=== PATIENT | female | born 1950 | race Caucasian/White ===

== ENCOUNTER 2017-04-13 13:25 | Inpatient (IN) | payer MEDICARE ==
[~2017-04-13] VITALS: Ht 167.6 cm; Wt 51.3 kg
[~2017-04-13 13:25] MED LIST: BUPR100T13 PO; LAMO200T39 PO
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
--- NOTE | 2017-04-13 13:30 | NUR ---
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 BLOOD SAMPLE COLLECTED SENT TO LAB
--- NOTE | 2017-04-13 13:48 | NUR ---
(WIRE STITCHER OPERATOR FROM [facility]) CALLED, TRANSFERRED CALL TO [facility] (TREVER)
[2017-04-13] MEDS ORDERED: METOPROLOL TARTRATE INJ 5 MG/5 ML AMPUL ONE (13:52)
[2017-04-13 13:58] LABS: BASOPHILS # (AUTO) 0.1 /CMM (0.0-0.2); EOSINOPHILS # (AUTO) 0.4 /CMM (0.0-0.7); EOSINOPHILS % (AUTO) 2.9 % (0.0-6.0); HEMATOCRIT 43 % (33-45); HEMOGLOBIN 14.4 g/dL (11.5-14.8); LYMPHOCYTES # (AUTO) 4.7 /CMM (0.8-4.8); LYMPHOCYTES % (AUTO) 37.3 % (20.0-44.0); MEAN CORPUSCULAR HEMOGLOBIN 32 PG (26.0-33.0); MEAN CORPUSCULAR HGB CONC 34 g/dl (31.0-36.0); MEAN CORPUSCULAR VOLUME 95 fL (82-100); MONOCYTES # (AUTO) 1.7 /CMM (0.1-1.30); MONOCYTES % (AUTO) 13.5 % (2.0-12.0); NEUTROPHILS # (AUTO) 5.7 /CMM (1.8-8.9); NEUTROPHILS % (AUTO) 45.3 % (43.0-81.0); PLATELET COUNT (AUTO) 397 /CMM (150-450); RED BLOOD CELL COUNT(AUTO) 4.53 MIL/uL (4.0-5.2); WHITE BLOOD COUNT (AUTO) 12.6 K/uL (4.3-11.0)
[2017-04-13] MEDS ORDERED: METOPROLOL TARTRATE INJ 5 MG/5 ML AMPUL IV ONE (14:00)
[2017-04-13 14:13] LABS: INR 1.24 (0.87-1.13)
[2017-04-13 14:17] LABS: TROPONIN I 0.053 ng/mL (0.00-0.056)
--- NOTE | 2017-04-13 14:19 | NUR ---
CALLED NURSING SUP. FOR TELE BED
[2017-04-13 14:22] LABS: ALBUMIN 4.1 g/dL (3.4-5.0); BILIRUBIN,DIRECT 0.1 mg/dL (0.0-0.2); CALCIUM, SERUM 9.2 mg/dL (8.5-10.1); CREATININE 1.4 mg/dL (0.6-1.3); TOTAL PROTEIN, SERUM 7.5 g/dL (6.4-8.2)
[2017-04-13 14:27] LABS: POTASSIUM 2.4 mmol/L (3.5-5.1)
[2017-04-13] MEDS ORDERED: DIGOXIN INJ 0.5 MG/2 ML AMPUL ONE (14:29)
[2017-04-13] MEDS ORDERED: DIGOXIN INJ 0.5 MG/2 ML AMPUL IV ONE (14:30)
[2017-04-13] MEDS: POTASSIUM CL. PREMIX PERIPHER. 50 ML IV SCH ×4 (14:45→18:10)
[2017-04-13] MEDS ORDERED: POTASSIUM CHLORIDE 20 MEQ TAB.PRT.SR PO ONE ×2 (14:49→15:00)
[2017-04-13] MEDS ORDERED: IV SET PRIMARY PUMP SET 1 EA INFUS.SET MC ONE ×3 (14:50→16:58)
[2017-04-13] MEDS ORDERED: POTASSIUM CL. PREMIX PERIPHER. 50 ML ONE (14:50)
[2017-04-13] MEDS ORDERED: FLUT1DIS3 INH (15:05)
[2017-04-13] MEDS ORDERED: ALBU18HF2 INH (15:05)
[2017-04-13] MEDS ORDERED: CARV6.252 PO (15:05)
[2017-04-13] MEDS ORDERED: RIVA10TA PO (15:05)
[2017-04-13] MEDS ORDERED: TORS20TA3 PO ×2 (15:05)
[2017-04-13] MEDS ORDERED: LISI2.5T2 PO (15:05)
[2017-04-13] MEDS ORDERED: ESCI10TA PO (15:05)
[2017-04-13 15:06] LABS: MAGNESIUM 1.5 mg/dL (1.8-2.4); PHOSPHORUS 1.9 mg/dL (2.5-4.9)
--- NOTE | 2017-04-13 15:35 | NUR ---
ROSITA AT BS.
[2017-04-13] MEDS ORDERED: POTASSIUM CL. PREMIX PERIPHER. 150 ML ONE (15:46)
[2017-04-13] MEDS ORDERED: Magnesium 1GM/D5W 100ML PREMIX 200 ML IV ONE (15:46)
--- NOTE | 2017-04-13 15:49 | NUR ---
REPORT GIVEN TO NAS COMBS FOR ROOM 103
--- NOTE | 2017-04-13 15:50 | NUR ---
TELE1/RN REPORT FROM ER RECEIVED REPORT FROM ER NURSE MONICA FOR PT TO BE ADMITTED FOR A-FIB, UNDER THE CARE OF DR. HERNANDEZ. AWAITING FOR PT'S ARRIVAL.
[2017-04-13 15:53] LABS: THYROID STIMULATING HORMONE 4.264 uIU/mL (0.358-3.74)
[2017-04-13] MEDS: Magnesium 1GM/D5W 100ML PREMIX 100 ML IV SCH ×2 (16:00→19:30)
[2017-04-13 16:30] VITALS: BP 115/55
--- NOTE | 2017-04-13 16:30 | NUR ---
TELE1/MANAGER MILITARY TO TELE1 PT ARRIVED VIA GURNEY FROM ER. A/O X 4, DENIES PAIN, ON 2L O2 VIA N/C LUNG SOUNDS CLEAR, SATURATING @ 100%. ON TELE WITH SINUS RHYTHM, HR 65. PT ARRIVED WITH ON GOING IV INFUSION OF KCL 10MEQ, IV SITE PATENT WITH NO S/S OF INFECTION. PT IS PLEASANT. ADMITTING PROTOCOLS BEING PROCESSED. AWAITING FOR ADMITTING ORDERS. CL WITHIN REACHED AND SAFETY MAINTAINED. ON GOING MONITORING.
[2017-04-13] MEDS ORDERED: IV NS 0.9% 500 ML IV ONE (16:58)
[2017-04-13 17:00] VITALS: BP 115/55
[2017-04-13] MEDS ORDERED: HYDROCODONE/APAP 10/325MG 1 EA TABLET PO PRN (17:30)
[2017-04-13] MEDS ORDERED: ZOLPIDEM TARTRATE 5 MG TABLET PO PRN (17:30)
[2017-04-13] MEDS ORDERED: MAG HYDROX/AL HYDROX/SIMETH 30 ML UDC PO PRN (17:30)
[2017-04-13] MEDS ORDERED: HYDROCODONE/APAP 5/325MG 1 EACH TABLET PO PRN (17:30)
[2017-04-13] MEDS ORDERED: Z GUARD REMEDY 2 OZ OINT TP PRN (17:30)
[2017-04-13] MEDS ORDERED: ONDANSETRON HCL/PF 4 MG/2 ML VIAL IVP PRN (17:30)
[2017-04-13] MEDS ORDERED: MORPHINE SULFATE INJ 2 MG/ML DISP.SYRIN IV PRN (17:30)
[2017-04-13] MEDS ORDERED: MAGNESIUM HYDROXIDE 30 ML UDC PO PRN (17:30)
[2017-04-13] MEDS ORDERED: ACETAMINOPHEN 325 MG TABLET PO PRN (17:30)
[2017-04-13] MEDS: CARVEDILOL 6.25 MG TABLET PO SCH (17:36)
[2017-04-13] MEDS ORDERED: SECONDARY IV SET 1 EA INFUS.SET MC ONE (18:09)
[2017-04-13] MEDS: FLUTICASONE/SALMETEROL DISKUS IH SCH (18:13)
--- NOTE | 2017-04-13 19:17 | NUR ---
TELE1/RN AM SHIFT END NOTES NO ACUTE CHANGE OF CONDITION SINCE PT WAS ADMITTED LATE THIS AFTERNOON. NEEDS MET. PT ENDORSED TO PM NURSE TO CONTINUE CARE. CL WITHIN REACHED AND SAFETY MAINTAINED.
[2017-04-13] MEDS ORDERED: ALBUTEROL FS 2.5 MG/3 ML VIAL.NEB NEB PRN (19:30)
--- NOTE | 2017-04-13 19:36 | NUR ---
TELEPHONE COLLECTOR NOTE RECEIVED PT IN BED A/O X 4, NO SOB, NO DISTRESS OR DISCOMFORT NOTED. DENIES PAIN. ON TELE A FIB HR 70'S. MAG 1 G INFUSING AT 100 ML/HR, NO S/S OF INFILTRATION NOTED LAC #20G. SIDE RAILS UP X 2 AND CALL LIGHT WITHIN REACH. VSS. CONTINUE TO MONITOR HER.
[2017-04-13 20:00] VITALS: BP 113/60
[2017-04-13 20:01] VITALS: BP 113/60
--- NOTE | 2017-04-13 22:49 | NUR ---
DIRECTOR FOUNDATION NOTE PT IN BED ASLEEP, NO DISTRESS OR DISCOMFORT NOTED. RESP EVEN AND NON LABORED. CONTINUE TO MONITOR HER.
[2017-04-14] VITALS: BP_SYST 114; BP_DIAS 62; BP_DIAS 67
[2017-04-14 04:00] VITALS: BP 116/69
--- NOTE | 2017-04-14 06:37 | NUR ---
HORSE WRANGLER NOTE PT IN BED ASLEEP, AROUSABLE, NO DISTRESS OR DISCOMFORT NOTED. DENIES PAIN. ON TELE SR WITH PVC'S HR 65. SL LAC #20 G INTACT AND PATENT. SIDE RAILS UP X 2 AND CALL LIGHT WITHIN REACH. WILL ENDORSE TO DAY SHIFT NURSE FOR CONTINUE TO CARE.
[2017-04-14 06:42] LABS: BASOPHILS # (AUTO) 0.1 /CMM (0.0-0.2); BASOPHILS % (AUTO) 0.9 % (0.0-2.0); EOSINOPHILS # (AUTO) 0.6 /CMM (0.0-0.7); EOSINOPHILS % (AUTO) 5.7 % (0.0-6.0); HEMATOCRIT 41 % (33-45); LYMPHOCYTES # (AUTO) 3.7 /CMM (0.8-4.8); LYMPHOCYTES % (AUTO) 35.2 % (20.0-44.0); MEAN CORPUSCULAR HEMOGLOBIN 33 PG (26.0-33.0); MEAN CORPUSCULAR HGB CONC 34 g/dl (31.0-36.0); MEAN CORPUSCULAR VOLUME 96 fL (82-100); MONOCYTES # (AUTO) 1.3 /CMM (0.1-1.30); MONOCYTES % (AUTO) 12.4 % (2.0-12.0); NEUTROPHILS # (AUTO) 4.8 /CMM (1.8-8.9); NEUTROPHILS % (AUTO) 45.8 % (43.0-81.0); PLATELET COUNT (AUTO) 347 /CMM (150-450); RDW COEFFICIENT OF VARIATION 13.2 (11.5-15.0); RED BLOOD CELL COUNT(AUTO) 4.28 MIL/uL (4.0-5.2); WHITE BLOOD COUNT (AUTO) 10.5 K/uL (4.3-11.0)
--- NOTE | 2017-04-14 07:00 | NUR ---
RN INITIAL NOTE RECEIVED PT FROM CLAUDIO COMBS PM SHIFT. PT A/O X4 PT ON RA. IV LAC #20G PATENT AND INTACT. ALL SAFETY MEASURES IN PLACE. WILL CONTINUE TO MONITOR.
[2017-04-14 07:02] LABS: TROPONIN I 0.074 ng/mL (0.00-0.056)
[2017-04-14 07:05] LABS: THYROID STIMULATING HORMONE 2.313 uIU/mL (0.358-3.74)
[2017-04-14 07:09] LABS: ALBUMIN 3.7 g/dL (3.4-5.0); BILIRUBIN,TOTAL 0.8 mg/dL (0.2-1.0); CALCIUM, SERUM 9.2 mg/dL (8.5-10.1); CREATININE 1.1 mg/dL (0.6-1.3); MAGNESIUM 2.8 mg/dL (1.8-2.4); PHOSPHORUS 3.5 mg/dL (2.5-4.9); POTASSIUM 3.1 mmol/L (3.5-5.1); TOTAL PROTEIN, SERUM 6.7 g/dL (6.4-8.2)
[2017-04-14] MEDS ORDERED: PANTOPRAZOLE 40 MG TABLET.DR PO SCH (07:30)
[2017-04-14 08:00] VITALS: BP 139/55
[2017-04-14 08:40] VITALS: BP 124/79
[2017-04-14] MEDS: CARVEDILOL 6.25 MG TABLET PO SCH (08:40)
[2017-04-14] MEDS: FLUTICASONE/SALMETEROL DISKUS IH SCH (08:45)
[2017-04-14] MEDS ORDERED: ESCITALOPRAM OXALATE (10 MG) 10 MG TABLET PO SCH (09:00)
[2017-04-14] MEDS ORDERED: RIVAROXABAN 10 MG TABLET PO SCH (09:00)
[2017-04-14] MEDS ORDERED: DRONEDARONE HYDROCHLORIDE 400 MG TABLET PO SCH (09:30)
[2017-04-14] MEDS: POTASSIUM CHLORIDE 20 MEQ TAB.PRT.SR PO SCH ×3 (10:06→12:32)
--- NOTE | 2017-04-14 14:35 | NUR ---
SUPERVISOR SHRIMP POND NOTE PT DC HOME. PT LEFT VIA TAXI. ALL ORDERS CARRIED OUT ALL QUESTIONS ANSWERED. ALL DC INSTRUCTIONS GIVEN TO PT. ID BAND AND IV REMOVED. BELONGING LIST SIGNED. PT CLEAN WARM AND DRY.
== END 2017-04-14 14:53 | disposition home or self-care (01) | DRG 291 ==
LOC: ER 13:27 → TELE1 16:43 → MEDSG1 04-14 13:25
DX: I13.0 Hypertensive heart and chronic kidney disease with heart failure and stage 1 through stage 4 chronic kidney disease, or unspecified chronic kidney disease (principal); I50.33 Acute on chronic diastolic (congestive) heart failure; D68.59 Other primary thrombophilia; I50.22 Chronic systolic (congestive) heart failure; I48.2 Chronic atrial fibrillation; E83.42 Hypomagnesemia; E87.6 Hypokalemia; E83.39 Other disorders of phosphorus metabolism; I42.9 Cardiomyopathy, unspecified; Z79.51 Long term (current) use of inhaled steroids; Z85.3 Personal history of malignant neoplasm of breast; Z85.528 Personal history of other malignant neoplasm of kidney; Z90.5 Acquired absence of kidney; Z90.10 Acquired absence of unspecified breast and nipple; Z98.82 Breast implant status; J44.9 Chronic obstructive pulmonary disease, unspecified; R55 Syncope and collapse; Z72.0 Tobacco use; V49.9XXA Car occupant (driver) (passenger) injured in unspecified traffic accident, initial encounter; Y93.9 Activity, unspecified; Y92.9 Unspecified place or not applicable; N18.9 Chronic kidney disease, unspecified; N28.9 Disorder of kidney and ureter, unspecified; Z79.899 Other long term (current) drug therapy; E86.0 Dehydration
CPT/HCPCS: 36415; 71010-TC; 80048-TC; 80053-TC; 80061-TC; 80076-TC; 82306; 83735-TC; 83880; 84100-TC; 84439-TC; 84443-TC; 84484-TC; 85025-TC; 85730-TC; 87081-TC; 93307-TC; 97001-TC; A4606; J1160; J3475; J3480; J3490; J7040; Z7610

== ENCOUNTER 2018-12-02 22:21 | Emergency (ER) | payer MEDICARE ==
[~2018-12-02] VITALS: Ht 167.6 cm; Wt 54.4 kg
[~2018-12-02 22:21] MED LIST changes: +ALBU18HF2 INH; -BUPR100T13 PO; +CARV6.252 PO; +ESCI10TA PO; +FLUT1DIS3 INH; -LAMO200T39 PO; +LISI2.5T2 PO; +RIVA10TA PO; +TORS20TA3 PO
[2018-12-03 00:15] VITALS: BP 120/89
[2018-12-03] MEDS ORDERED: TDAP [DIPH/PERTUSSIS/TET] 0.5 ML VIAL IM ONE ×2 (00:15→00:30)
[2018-12-03] MEDS ORDERED: AMOX/CLAVULANATE 875 MG TABLET ONE (00:53)
[2018-12-03] MEDS ORDERED: AMOX/CLAVULANATE 875 MG TABLET PO ONE (01:00)
== END 2018-12-03 01:01 | disposition home or self-care (01) ==
LOC: ER 22:32
DX: S60.032A Contusion of left middle finger without damage to nail, initial encounter (principal); F17.210 Nicotine dependence, cigarettes, uncomplicated; I50.9 Heart failure, unspecified; Z85.3 Personal history of malignant neoplasm of breast; Z85.528 Personal history of other malignant neoplasm of kidney; Z90.5 Acquired absence of kidney; Z98.890 Other specified postprocedural states; Z60.2 Problems related to living alone; W54.0XXA Bitten by dog, initial encounter; Y93.89 Activity, other specified; Y92.89 Other specified places as the place of occurrence of the external cause; Y99.8 Other external cause status
CPT/HCPCS: 90471; 90715; 99283; A4606

== ENCOUNTER 2019-08-10 13:17 | Inpatient (IN) | payer MEDICARE ==
[~2019-08-10] VITALS: Ht 167.6 cm; Wt 61.7 kg
--- NOTE | 2019-08-10 13:17 | NUR ---
PT BIB RA 99 FROM HOME,C/O LEFT HIP PAIN S/P TRIP/FALL, DENIES DIZZINESS/LOC, PT IS AAOX3, NOT IN RESPIRATORY, HOOKED TO MONITOR, KEPT RESTED AND COMFORTABLE, WILL CONTINUE TO MONITOR.
--- NOTE | 2019-08-10 13:41 | NUR ---
MORENO VALERO AT BEDSIDE FOR EVAL.
--- NOTE | 2019-08-10 13:43 | NUR ---
BROOMCORN SORTER AT BEDSIDE FOR XRAY.
[2019-08-10] MEDS ORDERED: MORPHINE SULFATE INJ 4 MG/ML DISP.SYRIN ONE (13:44)
[2019-08-10] MEDS ORDERED: POTA20TA83 PO (13:47)
--- NOTE | 2019-08-10 13:58 | NUR ---
[facility]O [facility] LEAD PAGED
[2019-08-10] MEDS ORDERED: MORPHINE SULFATE INJ 2 MG/ML DISP.SYRIN IV ONE (14:00)
[2019-08-10 14:26] LABS: BASOPHILS # (AUTO) 0.1 /CMM (0.0-0.2); EOSINOPHILS % (AUTO) 1.5 % (0.0-6.0); HEMATOCRIT 37 % (33-45); HEMOGLOBIN 12.4 g/dL (11.5-14.8); LYMPHOCYTES % (AUTO) 17.4 % (20.0-44.0); MEAN CORPUSCULAR HGB CONC 33 g/dl (31.0-36.0); MEAN CORPUSCULAR VOLUME 100 fL (82-100); MONOCYTES # (AUTO) 1.4 /CMM (0.1-1.30); NEUTROPHILS % (AUTO) 68.1 % (43.0-81.0); PLATELET COUNT (AUTO) 326 /CMM (150-450); RED BLOOD CELL COUNT(AUTO) 3.74 MIL/uL (4.0-5.2); WHITE BLOOD COUNT (AUTO) 11.8 K/uL (4.3-11.0)
[2019-08-10 14:34] LABS: CALCIUM, SERUM 9.4 mg/dL (8.5-10.1); CREATININE 1.3 mg/dL (0.6-1.3); POTASSIUM 3.3 mmol/L (3.5-5.1)
[2019-08-10] MEDS ORDERED: ONDANSETRON HCL/PF 4 MG/2 ML VIAL ONE (14:35)
[2019-08-10] MEDS ORDERED: HYDROMORPHONE 1 MG/1 ML DISP.SYRIN ONE (14:36)
--- NOTE | 2019-08-10 14:48 | NUR ---
[facility] PAGED
[2019-08-10] MEDS ORDERED: IV NS 0.9% 1,000 ML BAG IV ONE (15:00)
[2019-08-10] MEDS ORDERED: ONDANSETRON HCL/PF 4 MG/2 ML VIAL IV ONE (15:00)
[2019-08-10] MEDS ORDERED: HYDROMORPHONE INJ 0.5 MG/0.5 ML SYRINGE IV ONE (15:00)
--- NOTE | 2019-08-10 15:00 | NUR ---
MARKIE RODRIGUEZ AT BEDSIDE FOR EVAL.
--- NOTE | 2019-08-10 15:08 | NUR ---
PAMELLA JEROME AT BEDSIDE FOR EVAL.
--- NOTE | 2019-08-10 15:41 | NUR ---
RECIEVED BED 326-2
--- NOTE | 2019-08-10 15:45 | NUR ---
REPORT GIVEN TO GARRET ALCARAZ FOR KORI.
[2019-08-10 16:42] VITALS: BP 155/85
--- NOTE | 2019-08-10 17:00 | NUR ---
ms rn received a new admission from er, female 68 year old came in w/ dx of left hip fracture, s/p fall at home. alert,oriented x4, still in pain,all needs attended.
--- NOTE | 2019-08-10 17:00 | NUR ---
ms junaid tran for order,all needs attended.
[2019-08-10] MEDS ORDERED: MAGNESIUM HYDROXIDE 30 ML UDC PO PRN (17:30)
[2019-08-10] MEDS ORDERED: MORPHINE SULFATE INJ 2 MG/ML DISP.SYRIN IM PRN (17:30)
[2019-08-10] MEDS ORDERED: ONDANSETRON HCL/PF 4 MG/2 ML VIAL IVP PRN (17:30)
[2019-08-10] MEDS ORDERED: HYDROMORPHONE INJ 0.5 MG/0.5 ML SYRINGE IV PRN (17:30)
[2019-08-10] MEDS ORDERED: ACETAMINOPHEN 325 MG TABLET PO PRN (17:30)
[2019-08-10] MEDS ORDERED: Z GUARD REMEDY 2 OZ OINT TP PRN (17:30)
[2019-08-10] MEDS ORDERED: HYDROMORPHONE 1 MG/1 ML DISP.SYRIN IV PRN (17:30)
[2019-08-10] MEDS ORDERED: MAG HYDROX/AL HYDROX/SIMETH 30 ML UDC PO PRN (17:30)
--- NOTE | 2019-08-10 18:00 | NUR ---
ms junaid dilaudid 0.5mg iv given for pain.
--- NOTE | 2019-08-10 19:11 | NUR ---
ms rn on bed,no distress noted,all needs attended.
[2019-08-10] MEDS ORDERED: ALBUTEROL FS 2.5 MG/3 ML VIAL.NEB NEB PRN (19:30)
[2019-08-10 20:00] VITALS: BP 167/108
[2019-08-10] MEDS: HYDROCODONE/APAP 5/325MG 1 EACH TABLET PO PRN (20:24)
[2019-08-10] MEDS ORDERED: CARVEDILOL 6.25 MG TABLET PO SCH (21:00)
--- NOTE | 2019-08-10 21:14 | NUR ---
RN NOTES CALLED AND SPOKE TO DR. MACY CHARLES, INFORMED PATIENT'S REQUEST TO HAVE REAL CATH INSERTION D/T DIFFICULTY MOVING USING BEDPAN, PAIN IS IN PAIN MOSTLY ON HER LEFT HIP AND LEFT SIDE OF HER BODY, PATIENT'S BP IS 167/108, ALREADY GIVEN NORCO 5-325MG AT 2023. WILL KEEP ON TOP OF PAIN MANAGEMENT PER DR. CHARLES. WILL CONTINUE TO MONITOR.
[2019-08-10 21:24] LABS: APPEARANCE,URINE Clear (CLEAR); BILIRUBIN,URINE Negative (NEGATIVE); BLOOD, URINE Trace-lysed Ery/uL (NEGATIVE); COLOR,URINE Yellow (YELLOW); KETONES,URINE Negative (NEGATIVE); LEUKOCYTE ESTERASE ,URINE Negative (NEGATIVE); NITRITE, URINE Negative (NEGATIVE); PROTEIN,URINE Negative (NEGATIVE); UGLUCOSE Negative (NEGATIVE); UROBILINOGEN,URINE 0.2 EU/dL (0.2)
[2019-08-10 21:34] LABS: BACTERIA,URINE Moderate /HPF (None Seen); SQUAMOUS EPITHELIAL CELL,UR Few /HPF (None Seen)
[2019-08-10 21:35] LABS: RBC,URINE 0-2 /HPF (0-2); WBC,URINE 0-2 /HPF (0-3)
[2019-08-10] MEDS: HYDROMORPHONE 1 MG/1 ML DISP.SYRIN IV PRN (22:17)
[2019-08-11] MEDS: HYDROMORPHONE 1 MG/1 ML DISP.SYRIN IV PRN ×7 (00:56→16:24)
[2019-08-11] MEDS ORDERED: LORAZEPAM 1 MG TABLET PO ONE (03:30)
[2019-08-11] MEDS ORDERED: LORA1TAB PO (05:44)
[2019-08-11 06:23] LABS: BASOPHILS # (AUTO) 0.1 /CMM (0.0-0.2); BASOPHILS % (AUTO) 0.9 % (0.0-2.0); EOSINOPHILS % (AUTO) 0.3 % (0.0-6.0); HEMATOCRIT 34 % (33-45); HEMOGLOBIN 11.6 g/dL (11.5-14.8); LYMPHOCYTES # (AUTO) 2.1 /CMM (0.8-4.8); LYMPHOCYTES % (AUTO) 19.2 % (20.0-44.0); MEAN CORPUSCULAR HGB CONC 34 g/dl (31.0-36.0); MEAN CORPUSCULAR VOLUME 98 fL (82-100); MONOCYTES # (AUTO) 2.2 /CMM (0.1-1.30); MONOCYTES % (AUTO) 19.8 % (2.0-12.0); NEUTROPHILS # (AUTO) 6.6 /CMM (1.8-8.9); NEUTROPHILS % (AUTO) 59.8 % (43.0-81.0); PLATELET COUNT (AUTO) 274 /CMM (150-450); RED BLOOD CELL COUNT(AUTO) 3.48 MIL/uL (4.0-5.2)
[2019-08-11 06:55] LABS: THYROID STIMULATING HORMONE 3.794 uIU/mL (0.358-3.74)
--- NOTE | 2019-08-11 06:57 | NUR ---
RN NOTES ALL NEEDS ATTENDED AND MET, ABLE TO REST AND SLEPT AT INTERVALS, SAFETY MEASURES IN PLACE, CALL LIGHT WITHIN EASY REACH, WILL ENDORSE TO AM NURSE FOR CONTINUITY OF CARE.
[2019-08-11 07:05] LABS: CALCIUM, SERUM 9.1 mg/dL (8.5-10.1); MAGNESIUM 1.6 mg/dL (1.8-2.4); PHOSPHORUS 2.4 mg/dL (2.5-4.9); POTASSIUM 2.9 mmol/L (3.5-5.1)
--- NOTE | 2019-08-11 07:20 | NUR ---
RN OPENING NOTES RECEIVED PATIENT IN BED RESTING. A/OX4, ABLE TO MAKE NEEDS KNOWN. NOT IN ANY FORM OF DISTRESS. NO SOB. PAIN ON LEFT HIP, S/P FX. WILL ADMINISTER PAIN MEDS ORDERED. IV ACCESS INTACT AND PATENT. KEP TPATIENT SAFE AND COMFORTABLE. BED IN LOW/LOCKED [facility], SIDERAILS UPX2, CALL LIGHT IN REACH. WILL CONT TO MONITOR ACCRDNGLY
[2019-08-11 08:26] LABS: LYMPHOCYTES % (MANUAL) 13 % (16-48); MONOCYTES % (MANUAL) 25 % (0-11.0); NEUTROPHILS % (MANUAL) 62 (42-76)
--- NOTE | 2019-08-11 08:38 | NUR ---
RN NOTES DR FRY,ORTHO, AT BEDSIDE TALKING TO PATIENT. WILL HAVE SURGERY TOMRRW. LEFT HIP HEMIARTHROPLASTY. NPO AFTER MIDNIGHT
[2019-08-11] MEDS ORDERED: MAGNESIUM OXIDE 400 MG TABLET PO ONE (09:00)
[2019-08-11 09:57] VITALS: BP 140/97
[2019-08-11] MEDS: POTASSIUM CHLORIDE 20 MEQ TAB.PRT.SR PO SCH ×2 (10:15→16:24)
[2019-08-11] MEDS: LISINOPRIL (5MG) 5 MG TABLET PO SCH (10:18)
[2019-08-11] MEDS: CARVEDILOL 3.125 MG TABLET PO SCH ×2 (10:20→22:02)
[2019-08-11] MEDS: FLUTICASONE/VILANTEROL 1 EACH BLST.W.DEV IH SCH (10:26)
[2019-08-11] MEDS ORDERED: K PHOS NEUTRAL 250 MG TABLET PO ONE (11:00)
[2019-08-11] MEDS: TORSEMIDE 20 MG TABLET PO SCH (11:52)
[2019-08-11 16:18] VITALS: BP 124/86
[2019-08-11] MEDS: METHOCARBAMOL (500MG) 500 MG TABLET PO SCH (16:25)
--- NOTE | 2019-08-11 17:30 | NUR ---
RN NOTES TRIED CALLING [facility] MEDICAL RECORDS BUT NO ANSWER. OFFICE HOURS MON-FRI 8AM-5PM.
[2019-08-11] MEDS: oxyCODONE/APAP (5/325 MG) 1 UDTAB TABLET PO PRN ×2 (18:41→23:32)
--- NOTE | 2019-08-11 19:30 | NUR ---
RN CLOSING NOTES PATIENT IN STABLE CONDITION. ALL NEEDS ATTENDED AND PROVIDED. ALL DUE MEDICATIONS ADMINISTERED ORDERED. TURNED AND REPOSITION PATIENT EVERY 2 HRS NEEDED. KEPT PATIENT SAFE AND COMFORTABLE. BED IN LOW/LOCKED POSITION, SIDERAILS UPX2, CALL LIGHT IN REACH. ENDORSED TO NIGHT RN FOR KORI.
--- NOTE | 2019-08-11 19:40 | NUR ---
RN NOTES RECEIVED PATIENT IN BED RESTING COMFORTABLY, NO SIGNS OF DISTRESS NOTED, NO SOB. CONSTANT PAIN ON LEFT HIP, S/P FX. WILL ADMINISTER PAIN MEDS ORDERED. IV ACCESS INTACT AND PATENT. REAL CATHETER INTACT AND PATENT DRAINING TO A CLEAR YELLOW OUTPUT, NO SIGNS OF ANXIETY NOTED, SAFETY MEASURES IN PLACE, CALL LIGHT WITHIN EASY REACH, WILL MONITOR ACCORDINGLY.
[2019-08-11 20:00] VITALS: BP 120/57
[2019-08-11 20:07] VITALS: BP 120/57
--- NOTE | 2019-08-12 | NUR ---
RN NOTES ON NPO REMINDED PATIENT, PROCEDURE CONSENT SIGNED AND IN THE PATIENT'S CHART. WILL MONITOR.
[2019-08-12] MEDS: METHOCARBAMOL (500MG) 500 MG TABLET PO SCH ×3 (01:01→16:21)
--- NOTE | 2019-08-12 06:40 | NUR ---
RN NOTES MADE ROUNDS, PATIENT WAS ABLE TO REST, STATED THAT SHE WASN'T ABLE TO SLEEP THROUGHOUT THE NIGHT, MAINTAINED ON NPO SINCE AFTER MIDNIGHT, PROCEDURE FOR LEFT HIP HEMIARTHROPLASTY, POSSIBLE TOTAL HIP ARTHROPLASTY, CONSENT SIGNED, CHECKLIST INITIATED. KEPT PATIENT CALM, SAFETY MEASURES IN PLACE, CALL LIGHT WITHIN EASY REACH. ALL NEEDS ATTENDED, WILL ENDORSE TO AM NURSE FOR CONTINUITY OF CARE, PROCEDURE IS AT 0900 TODAY 08/12/19.
--- NOTE | 2019-08-12 07:30 | NUR ---
RN OPENING NOTES PATIENT IN BED RESTING. NOT IN ANY FORM OF DISTRESS. NO SOB. COMPLAINTS OF PAIN 10/10 ON LEFT HIP FX, WILL ADMINISTER PAIN MEDS ORDERED. KEPT NPO, FOR SURGERY AT 0900 TODAY. KEPT PATIENT SAFE AND COMFORTABLE. BED IN LOW/LOCKED POSITION, SIDERAILS UPX2,C ALL LIGHT IN REACH. WILL CONTINUE TO MONIOTR ACCORDINGLY
[2019-08-12 07:46] LABS: BASOPHILS # (AUTO) 0.1 /CMM (0.0-0.2); BASOPHILS % (AUTO) 0.8 % (0.0-2.0); EOSINOPHILS % (AUTO) 1.2 % (0.0-6.0); HEMATOCRIT 38 % (33-45); HEMOGLOBIN 12.8 g/dL (11.5-14.8); LYMPHOCYTES # (AUTO) 1.8 /CMM (0.8-4.8); LYMPHOCYTES % (AUTO) 11.4 % (20.0-44.0); MEAN CORPUSCULAR HGB CONC 33 g/dl (31.0-36.0); MEAN CORPUSCULAR VOLUME 99 fL (82-100); MONOCYTES # (AUTO) 2.4 /CMM (0.1-1.30); MONOCYTES % (AUTO) 15.7 % (2.0-12.0); NEUTROPHILS # (AUTO) 10.9 /CMM (1.8-8.9); NEUTROPHILS % (AUTO) 70.9 % (43.0-81.0); PLATELET COUNT (AUTO) 309 /CMM (150-450); RED BLOOD CELL COUNT(AUTO) 3.89 MIL/uL (4.0-5.2); WHITE BLOOD COUNT (AUTO) 15.4 K/uL (4.3-11.0)
[2019-08-12 07:56] LABS: CALCIUM, SERUM 9.1 mg/dL (8.5-10.1); CREATININE 1.2 mg/dL (0.6-1.3); MAGNESIUM 1.8 mg/dL (1.8-2.4); PHOSPHORUS 3.3 mg/dL (2.5-4.9); POTASSIUM 3.4 mmol/L (3.5-5.1)
[2019-08-12] MEDS: HYDROMORPHONE 1 MG/1 ML DISP.SYRIN IV PRN ×4 (07:56→20:09)
[2019-08-12 08:00] VITALS: BP 121/67
[2019-08-12] MEDS ORDERED: ANESTHESIA TRAY IN PYXIS 1 EA TRAY MC ONE (08:25)
[2019-08-12] MEDS ORDERED: BACITRACIN 50000 UNITS/VIAL ONE (08:26)
[2019-08-12] MEDS ORDERED: BUPIVACAINE 0.5 % PF 150 MG/30 ML VIAL ONE (08:26)
--- NOTE | 2019-08-12 08:30 | NUR ---
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 CONSENTS SIGNED.
[2019-08-12] MEDS: POTASSIUM CHLORIDE 20 MEQ TAB.PRT.SR PO SCH ×2 (09:00→16:20)
[2019-08-12] MEDS: CARVEDILOL 3.125 MG TABLET PO SCH ×2 (09:00→21:18)
[2019-08-12] MEDS: FLUTICASONE/VILANTEROL 1 EACH BLST.W.DEV IH SCH (09:00)
[2019-08-12] MEDS ORDERED: MIDAZOLAM HCL 2 MG/2ML VIAL ONE (09:01)
[2019-08-12] MEDS ORDERED: FENTANYL PF 100MCG/2ML AMPUL ONE ×2 (09:01→10:12)
[2019-08-12] MEDS ORDERED: ROCURONIUM BROMIDE 50 MG/5 ML ONE (09:01)
[2019-08-12] MEDS: POTASSIUM CL. PREMIX PERIPHER. 50 ML IV SCH ×2 (09:35→10:35)
[2019-08-12] MEDS ORDERED: LABETALOL HCL IV 100MG VIAL ONE (11:21)
[2019-08-12 11:48] LABS: BASOPHILS # (AUTO) 0.2 /CMM (0.0-0.2); BASOPHILS % (AUTO) 0.8 % (0.0-2.0); EOSINOPHILS % (AUTO) 1.1 % (0.0-6.0); HEMATOCRIT 38 % (33-45); HEMOGLOBIN 12.5 g/dL (11.5-14.8); LYMPHOCYTES % (AUTO) 9.7 % (20.0-44.0); MEAN CORPUSCULAR HGB CONC 33 g/dl (31.0-36.0); MEAN CORPUSCULAR VOLUME 99 fL (82-100); MONOCYTES # (AUTO) 1.6 /CMM (0.1-1.30); MONOCYTES % (AUTO) 7.8 % (2.0-12.0); NEUTROPHILS # (AUTO) 16.8 /CMM (1.8-8.9); NEUTROPHILS % (AUTO) 80.6 % (43.0-81.0); PLATELET COUNT (AUTO) 281 /CMM (150-450); RED BLOOD CELL COUNT(AUTO) 3.83 MIL/uL (4.0-5.2); WHITE BLOOD COUNT (AUTO) 20.8 K/uL (4.3-11.0)
[2019-08-12 11:57] LABS: CALCIUM, SERUM 8.7 mg/dL (8.5-10.1); CREATININE 1.1 mg/dL (0.6-1.3); POTASSIUM 3.5 mmol/L (3.5-5.1)
[2019-08-12 12:16] VITALS: BP 106/56
--- NOTE | 2019-08-12 12:17 | NUR ---
rn notes patient came back from OR. VSS. patient in stable condition. complaints of pain, will admin pain meds as ordered. abductor pillows in place. scd pumps on. orders noted and will carry out
[2019-08-12] MEDS: TORSEMIDE 20 MG TABLET PO SCH (12:26)
[2019-08-12] MEDS: LISINOPRIL (5MG) 5 MG TABLET PO SCH (12:26)
[2019-08-12] MEDS: oxyCODONE/APAP (5/325 MG) 1 UDTAB TABLET PO PRN ×3 (12:46→22:14)
[2019-08-12 15:50] VITALS: BP 126/71
[2019-08-12] MEDS ORDERED: CHOL100044 PO (16:54)
[2019-08-12] MEDS ORDERED: LISI2.5T2 PO (16:54)
[2019-08-12] MEDS ORDERED: ESCI20TA PO (16:54)
[2019-08-12] MEDS ORDERED: HYDR59LO5 TP (16:54)
[2019-08-12] MEDS ORDERED: DICL100G16 TP (16:54)
[2019-08-12] MEDS ORDERED: PANT40TA2 PO (16:54)
[2019-08-12] MEDS ORDERED: FERR325T23 PO (16:54)
[2019-08-12] MEDS ORDERED: LOPE2CAP PO (16:54)
[2019-08-12] MEDS ORDERED: DICLOFENAC TOPICAL 100 GM GEL..GM. TP PRN (17:00)
[2019-08-12] MEDS: IV LR 1000 ML 1,000 ML IV PRN (17:01)
[2019-08-12] MEDS: ANCEF 1 GM/50 ML D5W IV SCH ×2 (17:05)
[2019-08-12] MEDS ORDERED: MENTHOL/CETYLPYRD (CEPACOL) 1 LOZ LOZENGE PO PRN (18:30)
--- NOTE | 2019-08-12 19:10 | NUR ---
CHANGE OF SHIFT REPORT Patient in bed, appears anxious, denies SOB, tolerating RA. Left hip incision dressing C/D/I no drainage. Abduction pillow in place. Instruction to use call light for assistance, verbalized understanding. Fall precaution maintained.
[2019-08-12 20:00] VITALS: BP 102/65
[2019-08-12] MEDS: LORAZEPAM 1 MG TABLET PO PRN (23:08)
[2019-08-13] MEDS: METHOCARBAMOL (500MG) 500 MG TABLET PO SCH ×4 (00:02→23:54)
[2019-08-13] MEDS: ANCEF 1 GM/50 ML D5W IV SCH ×2 (02:03)
[2019-08-13] MEDS: oxyCODONE/APAP (5/325 MG) 1 UDTAB TABLET PO PRN ×6 (02:09→22:28)
[2019-08-13] MEDS: IV LR 1000 ML 1,000 ML IV PRN ×2 (05:40→23:33)
--- NOTE | 2019-08-13 06:24 | NUR ---
END OF SHIFT REPORT Patient in bed, stable oxygen saturation on RA. Left lateral thigh incision dressing C/D/I, no drainage, no bleeding. Abduction pillow in place. Left hip pain controlled with PRN Percocet and IV Dilaudid for BTP. Episode of anxiety, given PRN Ativan, able to calm down. IVF infusing, IV abx as schedule. Hourly rounds, denies nausea, no vomiting. Burgess to gravity bag with good output. Fall precaution maintained.
[2019-08-13 07:20] LABS: BASOPHILS # (AUTO) 0.1 /CMM (0.0-0.2); BASOPHILS % (AUTO) 0.9 % (0.0-2.0); EOSINOPHILS % (AUTO) 0.8 % (0.0-6.0); HEMATOCRIT 29 % (33-45); HEMOGLOBIN 9.8 g/dL (11.5-14.8); LYMPHOCYTES % (AUTO) 13.7 % (20.0-44.0); MEAN CORPUSCULAR HGB CONC 34 g/dl (31.0-36.0); MEAN CORPUSCULAR VOLUME 99 fL (82-100); MONOCYTES # (AUTO) 3.2 /CMM (0.1-1.30); MONOCYTES % (AUTO) 22.5 % (2.0-12.0); NEUTROPHILS # (AUTO) 8.9 /CMM (1.8-8.9); NEUTROPHILS % (AUTO) 62.1 % (43.0-81.0); PLATELET COUNT (AUTO) 281 /CMM (150-450); RED BLOOD CELL COUNT(AUTO) 2.95 MIL/uL (4.0-5.2); WHITE BLOOD COUNT (AUTO) 14.4 K/uL (4.3-11.0)
[2019-08-13 08:00] VITALS: BP 106/71
--- NOTE | 2019-08-13 08:03 | NUR ---
RN MS OPENING NOTES Patient received on room air, no sob noted, a/o x4, and denies pain at this time. Plan for sapp is to be removed post op day one, after her PT. LR @ 75 ml per hour RFA 22. Bed at the lowest setting, call light within reach, side rails up x2.
[2019-08-13 08:28] LABS: CALCIUM, SERUM 8.8 mg/dL (8.5-10.1); CREATININE 1.1 mg/dL (0.6-1.3); MAGNESIUM 1.9 mg/dL (1.8-2.4); PHOSPHORUS 2.6 mg/dL (2.5-4.9); POTASSIUM 4.1 mmol/L (3.5-5.1)
[2019-08-13] MEDS: LISINOPRIL (5MG) 5 MG TABLET PO SCH (09:00)
[2019-08-13] MEDS: FLUTICASONE/VILANTEROL 1 EACH BLST.W.DEV IH SCH (09:00)
[2019-08-13] MEDS: POTASSIUM CHLORIDE 20 MEQ TAB.PRT.SR PO SCH ×2 (09:20→16:50)
[2019-08-13] MEDS: FERROUS SULFATE (325 MG) 325 MG/TAB TABLET PO SCH (09:21)
[2019-08-13] MEDS: ESCITALOPRAM OXALATE (10 MG) 10 MG TABLET PO SCH (09:21)
[2019-08-13] MEDS: CARVEDILOL 3.125 MG TABLET PO SCH ×2 (09:21→20:09)
[2019-08-13] MEDS: CHOLECALCIFEROL 1,000 UNIT TABLET (VIT D3) PO SCH (09:21)
[2019-08-13] MEDS: PANTOPRAZOLE 40 MG TABLET.DR PO SCH (09:23)
[2019-08-13] MEDS: TORSEMIDE 20 MG TABLET PO SCH (09:29)
[2019-08-13] MEDS: HYDROMORPHONE 1 MG/1 ML DISP.SYRIN IV PRN ×2 (09:30→21:10)
[2019-08-13 15:59] LABS: BASOPHILS # (AUTO) 0.1 /CMM (0.0-0.2); EOSINOPHILS % (AUTO) 1.5 % (0.0-6.0); HEMATOCRIT 30 % (33-45); LYMPHOCYTES # (AUTO) 2.1 /CMM (0.8-4.8); LYMPHOCYTES % (AUTO) 14.7 % (20.0-44.0); MEAN CORPUSCULAR HGB CONC 34 g/dl (31.0-36.0); MEAN CORPUSCULAR VOLUME 99 fL (82-100); MONOCYTES % (AUTO) 20.5 % (2.0-12.0); NEUTROPHILS % (AUTO) 62.3 % (43.0-81.0); PLATELET COUNT (AUTO) 302 /CMM (150-450); WHITE BLOOD COUNT (AUTO) 14.5 K/uL (4.3-11.0)
[2019-08-13 16:00] VITALS: BP 108/62
[2019-08-13 16:39] LABS: BAND % (MANUAL) 1 % (0.0-5.0); LYMPHOCYTES % (MANUAL) 19 % (16-48); MONOCYTES % (MANUAL) 17 % (0-11.0); NEUTROPHILS % (MANUAL) 63 (42-76)
[2019-08-13] MEDS: RIVAROXABAN 10 MG TABLET PO SCH (17:01)
--- NOTE | 2019-08-13 18:44 | NUR ---
RN MS CLOSING NOTES Patient remains on room air, no sob noted, patient remains a/o x4. Burgess remains on at this time due to patients request, PT agreed and hospitalist aware. Patient stated that she wants to try and remove it tomorrow due to current weakness. LR @ 75 Ml per hour at RFA #22. Anticipating DC tomorrow. Bed at the lowest setting, call light within reach, side rails up x2. Will give report to NOC RN for KORI bedside.
[2019-08-13 20:00] VITALS: BP 108/74
--- NOTE | 2019-08-13 20:00 | NUR ---
MS/RN OPENING NOTES RECEIVED PATIENT IN BED HOB ELEVATED, RESPIRATIONS EVEN AND UNLABORED, SKIN WARM TO TOUCH, CAN OPENS EYES AND ABLE TO VERBALIZE NEEDS, ALERT,ORIENTED X3, DISCUSSED PLAN OF CARE AND LAST PAIN MEDICATION GIVEN BEFORE START OF SHIFT BY AM RN. ON ROOM AIR. S/P SURGERYY FOR LEFT HIP FX, WITH ABDUCTOR PI;;OW, ON REAL CATHETER AT THIS TIME MD AWARE MD THAT PATIENT CAN ONLY WALK FEW STEPS DURING PT. ALSO TO STILL KEEP REAL AT THIS TIME AND TO BE TRANSFERED WITH [facility] OR SNF PLACEMENT. PROVIDED FLUIDS. WILL MONITOR AND IV FLUIDS TO RUN LR @ 75 ML/HR.
--- NOTE | 2019-08-13 21:30 | NUR ---
ms/rn notes pain reported by patient and requested for break through pain of dilaudud ivp 0.5ml, given to monitor effectiveness.
--- NOTE | 2019-08-13 21:46 | NUR ---
MS/RN NOTES PATIENT STILL IN PAIN REPORTED, UNRELIEVED BY DILAUDID, SCHEDULED MEDICATION PERCOCET TO BE GIVEN PATIENT PAIN SEVERE. POSITIONED HAI.
--- NOTE | 2019-08-14 | NUR ---
MS/RN NOTES PATIENT MEDICATION GIVEN, REQUESTED PATIENT WILL GO BACK TO SLEEP. MONITORING FOR ANY CHANGES, INCISION SITE DRESSING INTACT, TO BE CHANGE BY NORA WILL MONITOR.
[2019-08-14] MEDS: oxyCODONE/APAP (5/325 MG) 1 UDTAB TABLET PO PRN ×2 (06:06→18:05)
--- NOTE | 2019-08-14 06:08 | NUR ---
ms/rn opening notes patient awake, and observed grimacing crying abd requesting for pain medication, percocet given. will monitor.
--- NOTE | 2019-08-14 06:52 | NUR ---
MS/RN NOTES PATIENT IN BED, AWAKE, PAIN MEDICATION GIVEN, ABLE TO VERBALIZE NEEDS, PROVIDED FLUIDS AND FACE TOWEL FOR COMFORT. ALERT, ORIENTED X3, RESPIRATIONS EVEN AND UNLABORED, ON REAL CATHETER, NO BM AND OFFERED MEDICATION FOR STOOL MGMT, PREFER TO HAVE IT LATER AFTER BREAKFAST, WILL CONTINUE TO MONITOR. S/P POST OP DAY 2.
[2019-08-14 06:58] LABS: BASOPHILS # (AUTO) 0.1 /CMM (0.0-0.2); EOSINOPHILS % (AUTO) 2.6 % (0.0-6.0); HEMATOCRIT 28 % (33-45); HEMOGLOBIN 9.6 g/dL (11.5-14.8); LYMPHOCYTES % (AUTO) 13.7 % (20.0-44.0); MEAN CORPUSCULAR HGB CONC 34 g/dl (31.0-36.0); MEAN CORPUSCULAR VOLUME 98 fL (82-100); MONOCYTES # (AUTO) 3.1 /CMM (0.1-1.30); MONOCYTES % (AUTO) 21.1 % (2.0-12.0); NEUTROPHILS # (AUTO) 9.1 /CMM (1.8-8.9); NEUTROPHILS % (AUTO) 61.6 % (43.0-81.0); PLATELET COUNT (AUTO) 349 /CMM (150-450); RED BLOOD CELL COUNT(AUTO) 2.86 MIL/uL (4.0-5.2); WHITE BLOOD COUNT (AUTO) 14.8 K/uL (4.3-11.0)
[2019-08-14 07:14] LABS: CALCIUM, SERUM 8.8 mg/dL (8.5-10.1); MAGNESIUM 1.7 mg/dL (1.8-2.4); PHOSPHORUS 2.1 mg/dL (2.5-4.9); POTASSIUM 3.7 mmol/L (3.5-5.1)
--- NOTE | 2019-08-14 07:25 | NUR ---
MS RN OPENING NOTES RECEIVED PATIENT AWAKE IN BED IN NO ACUTE SIGNS OF DISTRESS. HOB ELEVATED. A/O X3. ABLE TO MAKE NEEDS KNOWN, STATED THAT PAIN AT THIS TIME IS TOLERABLE. DRESSING ON LEFT HIP C/D/I. ON ROOM AIR, BREATHING EVEN AND UNLABORED. IV ACCESS ON RFA G #22 INTACT AND PATENT, IVF OF LR @ 75ML/HR INFUSING WELL, NO S/S OF INFILTRATIONS NOTED. REAL CATHETER IN PLACE AND NOTED WITH CLEAR YELLOW URINE OUTPUT. SAFETY MEASURES IN PLACE. BED IN LOW LOCKED POSITION WITH SR UP X2. CALL LIGHT WITHIN REACH. WILL CONTINUE TO MONITOR.
[2019-08-14 08:00] VITALS: BP_SYST 100; BP_SYST 132; BP_DIAS 60; BP_DIAS 85
[2019-08-14] MEDS: PANTOPRAZOLE 40 MG TABLET.DR PO SCH (08:30)
[2019-08-14] MEDS: METHOCARBAMOL (500MG) 500 MG TABLET PO SCH ×2 (08:31→17:17)
[2019-08-14] MEDS: CHOLECALCIFEROL 1,000 UNIT TABLET (VIT D3) PO SCH (08:31)
[2019-08-14] MEDS: POTASSIUM CHLORIDE 20 MEQ TAB.PRT.SR PO SCH ×2 (08:31→17:17)
[2019-08-14] MEDS: FERROUS SULFATE (325 MG) 325 MG/TAB TABLET PO SCH (08:31)
[2019-08-14] MEDS: ESCITALOPRAM OXALATE (10 MG) 10 MG TABLET PO SCH (08:32)
[2019-08-14] MEDS: LISINOPRIL (5MG) 5 MG TABLET PO SCH (08:33)
[2019-08-14] MEDS: TORSEMIDE 20 MG TABLET PO SCH (08:33)
[2019-08-14] MEDS: CARVEDILOL 3.125 MG TABLET PO SCH ×2 (08:33→21:14)
[2019-08-14] MEDS: FLUTICASONE/VILANTEROL 1 EACH BLST.W.DEV IH SCH (08:34)
[2019-08-14] MEDS ORDERED: K PHOS NEUTRAL 250 MG TABLET PO ONE (09:00)
[2019-08-14] MEDS: DOCUSATE SODIUM 100 MG CAPSULE PO PRN ×2 (10:15→21:14)
[2019-08-14] MEDS: HYDROMORPHONE 1 MG/1 ML DISP.SYRIN IV PRN ×3 (10:16→21:42)
--- NOTE | 2019-08-14 10:20 | NUR ---
RN NOTES/PAIN MANAGEMENT PT C/O ACHING THROBBING PAIN ON LEFT HIP WITH SCALE OF 8/10. PRN 0.5MG/0.5ML IVP ADMINISTERED AT 1016. WILL CONTINUE TO REASSESS AND MONITOR PT.
--- NOTE | 2019-08-14 10:36 | NUR ---
RN NOTES PT SIGNED AND AUTHORIZED CONSENT TO OBTAIN MEDICAL RECORDS FROM DR KATHLEEN OSPINA OF [facility]. AUTHORIZATION FAXED TO [phone] AND RECEIVED CONFIRMATION.
[2019-08-14] MEDS: Magnesium 1GM/D5W 100ML PREMIX 100 ML IV SCH ×2 (10:49→11:54)
[2019-08-14] MEDS: HYDROCODONE/APAP 5/325MG 1 EACH TABLET PO PRN (12:28)
--- NOTE | 2019-08-14 12:31 | NUR ---
RN NOTES/PAIN MANAGEMENT PT C/O ACHING THROBBING PAIN ON LEFT HIP WITH SCALE OF 7/10. PRN NORCO 5/325 PO ADMINISTERED AT 1228. WILL CONTINUE TO REASSESS AND MONITOR PT.
--- NOTE | 2019-08-14 14:04 | NUR ---
RN NOTES PT NOTED WITH LOW MAGNESIUM 1.7 TODAY, ADMINISTERED MG 1GM/100ML D5W X 2 BAGS. WILL CONTINUE TO MONITOR.
--- NOTE | 2019-08-14 14:17 | NUR ---
RN NOTES/PAIN MANAGEMENT PT C/O ACHING THROBBING PAIN ON LEFT HIP WITH SCALE OF 8/10. PRN 0.5MG/0.5ML IVP ADMINISTERED AT 1416. WILL CONTINUE TO REASSESS AND MONITOR PT.
--- NOTE | 2019-08-14 15:45 | NUR ---
RN NOTES PATIENT REAL CATHETER REMOVED W/O PROBLEM AFTER PHYSICAL THERAPY EVALUATION. BEDSIDE COMMODE PROVIDED. WILL CONTINUE TO MONITOR.
[2019-08-14 16:00] VITALS: BP 100/60
[2019-08-14] MEDS: IV LR 1000 ML 1,000 ML IV PRN (17:17)
[2019-08-14] MEDS: RIVAROXABAN 10 MG TABLET PO SCH (17:18)
--- NOTE | 2019-08-14 18:06 | NUR ---
RN NOTES/PAIN MANAGEMENT PT ASSISTED TO BSC C/O CONSTANT ACHING THROBBING PAIN ON LEFT HIP WITH SCALE OF 8/10. PRN PERCOCET 5/325 PO ADMINISTERED AT 1805. WILL CONTINUE TO REASSESS AND MONITOR PT.
--- NOTE | 2019-08-14 19:33 | NUR ---
MS RN CLOSING NOTES PATIENT AWAKE AND RESTING AT MODERATE HIGH BACKREST POSITION. A/O X4. ABLE TO MAKE NEEDS KNOWN. DRESSING ON LEFT HIP C/D/I. ON ROOM AIR, TOLERATING WELL WITH NO SOB NOTED. IV ACCESS ON RFA G #22 INTACT AND PATENT, IVF OF LR @ 75ML/HR INFUSING WELL, NO S/S OF INFILTRATIONS NOTED. ALL NEEDS AND CARE ATTENDED WELL. SAFETY MEASURES KEPT IN PLACE. BED IN LOW LOCKED POSITION WITH SR UP X2. CALL LIGHT WITHIN REACH. WILL ENDORSE TO WATER MAINTENANCE SUPERVISOR NURSE FOR KORI
--- NOTE | 2019-08-14 19:34 | NUR ---
MS RN OPENING NOTES Received patient A/O x4, awake on semi-Villalta's position on bed with patent peripheral IV line LFA G#20 with LR infusing well @ 75ml/hr as ordered. On RA, no SOB/respiratory distress noted. L hip with clean, dry and intact dressing. With complaints of pain, patient newly given Percocet from AM shift. With abduction pillow in place. Kept patient on bed clean, dry and comfortable. Call light within easy reach. On fall precautions, will continue to monitor accordingly.
[2019-08-14 20:00] VITALS: BP 110/42
--- NOTE | 2019-08-14 22:00 | NUR ---
MS RN NOTES Patient requested to turn off the IVF. Instructed patient on fluid intake, patient verbalized understanding. Kept water at bedside within easy reach.
[2019-08-15] MEDS: METHOCARBAMOL (500MG) 500 MG TABLET PO SCH ×3 (00:35→17:23)
[2019-08-15] MEDS: HYDROCODONE/APAP 5/325MG 1 EACH TABLET PO PRN ×3 (00:35→17:32)
[2019-08-15] MEDS: oxyCODONE/APAP (5/325 MG) 1 UDTAB TABLET PO PRN ×3 (02:04→21:37)
[2019-08-15] MEDS: HYDROMORPHONE 1 MG/1 ML DISP.SYRIN IV PRN ×2 (05:23→14:18)
--- NOTE | 2019-08-15 06:45 | NUR ---
MS RN CLOSING NOTES Patient asleep, easily awaken. On supine position on bed with abduction pillow in place. On RA, no SOB/respiratory distress noted. Able to use BSC and bedpan at time. All nursing needs attended. Kept on bed clean, dry and comfortable. Call light within easy reach. Endorsed to the next shift.
[2019-08-15 07:11] LABS: CALCIUM, SERUM 8.9 mg/dL (8.5-10.1); MAGNESIUM 2.1 mg/dL (1.8-2.4); PHOSPHORUS 2.5 mg/dL (2.5-4.9); POTASSIUM 3.8 mmol/L (3.5-5.1)
--- NOTE | 2019-08-15 07:19 | NUR ---
MS RN OPENING NOTES RECEIVED PATIENT AWAKE IN BED IN NO ACUTE SIGNS OF DISTRESS. HOB ELEVATED. A/O X3. ABLE TO MAKE NEEDS KNOWN, VERBALIZED THAT PAIN ON HER LEFT HIP TOLERABLE AT THIS TIME. DRESSING ON LEFT HIP C/D/I. ON ROOM AIR, BREATHING EVEN AND UNLABORED. IV ACCESS ON RFA G #22 INTACT AND PATENT, IVF OF LR @ 75ML/HR INFUSING WELL, NO S/S OF INFILTRATIONS NOTED. SAFETY MEASURES IN PLACE. BED IN LOW LOCKED POSITION WITH SR UP X2. CALL LIGHT WITHIN REACH. WILL CONTINUE TO MONITOR.
[2019-08-15 07:39] LABS: BASOPHILS # (AUTO) 0.1 /CMM (0.0-0.2); EOSINOPHILS % (AUTO) 3.8 % (0.0-6.0); HEMATOCRIT 28 % (33-45); HEMOGLOBIN 9.5 g/dL (11.5-14.8); LYMPHOCYTES # (AUTO) 2.7 /CMM (0.8-4.8); LYMPHOCYTES % (AUTO) 21.9 % (20.0-44.0); MEAN CORPUSCULAR HGB CONC 35 g/dl (31.0-36.0); MEAN CORPUSCULAR VOLUME 98 fL (82-100); MONOCYTES # (AUTO) 2.5 /CMM (0.1-1.30); MONOCYTES % (AUTO) 19.7 % (2.0-12.0); NEUTROPHILS # (AUTO) 6.7 /CMM (1.8-8.9); NEUTROPHILS % (AUTO) 53.6 % (43.0-81.0); PLATELET COUNT (AUTO) 399 /CMM (150-450); RED BLOOD CELL COUNT(AUTO) 2.81 MIL/uL (4.0-5.2); WHITE BLOOD COUNT (AUTO) 12.5 K/uL (4.3-11.0)
[2019-08-15 08:00] VITALS: BP 136/84
[2019-08-15] MEDS: PANTOPRAZOLE 40 MG TABLET.DR PO SCH (08:13)
[2019-08-15] MEDS: TORSEMIDE 20 MG TABLET PO SCH (08:13)
[2019-08-15] MEDS: ESCITALOPRAM OXALATE (10 MG) 10 MG TABLET PO SCH (08:14)
[2019-08-15] MEDS: POTASSIUM CHLORIDE 20 MEQ TAB.PRT.SR PO SCH ×2 (08:14→17:23)
[2019-08-15] MEDS: FERROUS SULFATE (325 MG) 325 MG/TAB TABLET PO SCH (08:14)
[2019-08-15] MEDS: CHOLECALCIFEROL 1,000 UNIT TABLET (VIT D3) PO SCH (08:15)
[2019-08-15] MEDS: CARVEDILOL 3.125 MG TABLET PO SCH ×2 (08:16→20:36)
[2019-08-15] MEDS: LISINOPRIL (5MG) 5 MG TABLET PO SCH (08:17)
[2019-08-15] MEDS: FLUTICASONE/VILANTEROL 1 EACH BLST.W.DEV IH SCH (08:17)
--- NOTE | 2019-08-15 08:22 | NUR ---
RN NOTES/PAIN MANAGEMENT PT CALLED AND COMPLAINED OF ACHING THROBBING PAIN ON LEFT HIP WITH SCALE OF 7/10. PRN NORCO 5/325 PO ADMINISTERED AT 0816. WILL CONTINUE TO REASSESS AND MONITOR PT.
[2019-08-15 10:24] LABS: EOSINOPHILS % (MANUAL) 3 % (0-4); LYMPHOCYTES % (MANUAL) 20 % (16-48); MONOCYTES % (MANUAL) 9 % (0-11.0); NEUTROPHILS % (MANUAL) 68 (42-76)
[2019-08-15] MEDS: DOCUSATE SODIUM 100 MG CAPSULE PO PRN (11:36)
--- NOTE | 2019-08-15 11:38 | NUR ---
RN NOTES/PAIN MANAGEMENT PT C/O ACHING THROBBING PAIN ON LEFT HIP WITH SCALE OF 8/10. PRN PERCOCET 5/325 PO ADMINISTERED AT 1136. WILL CONTINUE TO REASSESS AND MONITOR PT
[2019-08-15] MEDS ORDERED: PHENAZOPYRIDINE HCL 200 MG TABLET PO PRN (12:00)
[2019-08-15 13:20] LABS: APPEARANCE,URINE Clear (CLEAR); BILIRUBIN,URINE Negative (NEGATIVE); BLOOD, URINE Small Ery/uL (NEGATIVE); COLOR,URINE Yellow (YELLOW); KETONES,URINE Negative (NEGATIVE); LEUKOCYTE ESTERASE ,URINE Negative (NEGATIVE); NITRITE, URINE Negative (NEGATIVE); PROTEIN,URINE Negative (NEGATIVE); UGLUCOSE Negative (NEGATIVE); UROBILINOGEN,URINE 0.2 EU/dL (0.2)
[2019-08-15 13:41] LABS: BACTERIA,URINE None seen /HPF (None Seen); SQUAMOUS EPITHELIAL CELL,UR Few /HPF (None Seen)
[2019-08-15] MEDS: CEFTRIAXONE 1 G in IV D5W 50 ML IV SCH (13:47)
--- NOTE | 2019-08-15 14:19 | NUR ---
RN NOTES/PAIN MANAGEMENT PT NOTED GRIMACING IN PAIN. VERBALIZED THAT SHE HAS ACHING THROBBING PAIN ON LEFT HIP WITH SCALE OF 8/10. PRN MORPHINE 0.5MG/0.5ML IVP ADMINISTERED AT 1418. WILL CONTINUE TO MONITOR AND REASSESS PT.
[2019-08-15 16:00] VITALS: BP 101/65
[2019-08-15] MEDS: RIVAROXABAN 10 MG TABLET PO SCH (17:25)
--- NOTE | 2019-08-15 18:38 | NUR ---
MS RN CLOSING NOTES PATIENT AWAKE AND WATCHING TV AT THIS TIME. HOB ELEVATED. A/O X4. ABLE TO MAKE NEEDS KNOWN. DRESSING ON LEFT HIP C/D/I. ON ROOM AIR, TOLERATING WELL WITH NO SOB NOTED. IV ACCESS ON RFA G #22 INTACT AND PATENT, IVF OF LR @ 75ML/HR INFUSING WELL, NO S/S OF INFILTRATIONS NOTED. ALL NEEDS AND CARE ATTENDED WELL. SAFETY MEASURES KEPT IN PLACE. BED IN LOW LOCKED POSITION WITH SR UP X2. CALL LIGHT WITHIN REACH. WILL ENDORSE TO CHAUFFE[employer] AIRPORT LIMOUSINE NURSE FOR KORI
--- NOTE | 2019-08-15 19:00 | NUR ---
MS RN OPENING NOTES RECEIVED PATIENT IN BED, AWAKE AND WATCHING TV AT THIS TIME. HOB ELEVATED. A/O X4. BREATHING EVEN AND UNLABORED. NOT IN ANY DISTRESS, ON ROOM AIR. DRESSING ON LEFT HIP CLEAN, DRY AND INTACT. PERIPHERAL IV ON RFA G #22 INTACT AND PATENT, IVF OF LR INFUSING AT 75ML/HR. SAFETY MEASURES IN PLACE. BED IN LOW LOCKED POSITION WITH SIDE RAILS UP X2. CALL LIGHT WITHIN REACH. WILL CONTINUE TO MONITOR ACCORDINGLY
[2019-08-15 19:53] VITALS: BP 113/80
[2019-08-15 20:00] VITALS: BP 113/80
[2019-08-15 21:35] VITALS: BP 138/78
--- NOTE | 2019-08-15 21:37 | NUR ---
RN NOTES PATIENT C/O L0 HIP PAIN, 07/18. REQUESTED FOR A PAIN PILL, PERCOCET 5-325 PO GIVEN ORDERED. WILL CONTINUE TO MONITOR
[2019-08-15] MEDS: LORAZEPAM 1 MG TABLET PO PRN (22:24)
--- NOTE | 2019-08-15 22:24 | NUR ---
RN NOTES PATIENT C/O ANXIETY AND CHEST PAIN. O2 2LPM VIA NASAL CANNULA GIVEN. V/S CHECKED: BP-143/86, HR- 76, RR- 18. ATIVAN 1MG PO GIVEN ORDERED. WILL CONTINUE TO MONITOR
[2019-08-15] MEDS: IV LR 1000 ML 1,000 ML IV PRN (22:30)
[2019-08-16] MEDS: METHOCARBAMOL (500MG) 500 MG TABLET PO SCH ×4 (00:32→23:59)
--- NOTE | 2019-08-16 06:47 | NUR ---
MS RN CLOSING NOTES PATIENT STILL SLEEPING IN BED. BREATHING EVEN AND UNLABORED. NOT IN ANY DISTRESS, ON ROOM AIR. DRESSING ON LEFT HIP CLEAN, DRY AND INTACT. PERIPHERAL IV INFUSING AT 75ML/HR. ALL NEEDS ATTENDED. SAFETY MEASURES IN PLACE. BED IN LOW LOCKED POSITION WITH SIDE RAILS UP X 2. CALL LIGHT WITHIN REACH. WILL ENDORSE KORI TO ONCOMING RN
[2019-08-16 07:06] LABS: BASOPHILS # (AUTO) 0.2 /CMM (0.0-0.2); BASOPHILS % (AUTO) 1.3 % (0.0-2.0); HEMATOCRIT 28 % (33-45); HEMOGLOBIN 9.2 g/dL (11.5-14.8); LYMPHOCYTES # (AUTO) 2.2 /CMM (0.8-4.8); LYMPHOCYTES % (AUTO) 18.1 % (20.0-44.0); MEAN CORPUSCULAR HGB CONC 34 g/dl (31.0-36.0); MEAN CORPUSCULAR VOLUME 97 fL (82-100); MONOCYTES # (AUTO) 2.1 /CMM (0.1-1.30); MONOCYTES % (AUTO) 17.5 % (2.0-12.0); NEUTROPHILS # (AUTO) 7.2 /CMM (1.8-8.9); NEUTROPHILS % (AUTO) 60.1 % (43.0-81.0); PLATELET COUNT (AUTO) 474 /CMM (150-450); RED BLOOD CELL COUNT(AUTO) 2.83 MIL/uL (4.0-5.2); WHITE BLOOD COUNT (AUTO) 11.9 K/uL (4.3-11.0)
[2019-08-16 07:23] LABS: CALCIUM, SERUM 9.1 mg/dL (8.5-10.1); CREATININE 0.8 mg/dL (0.6-1.3); POTASSIUM 3.7 mmol/L (3.5-5.1)
[2019-08-16 08:00] VITALS: BP 161/95
--- NOTE | 2019-08-16 08:00 | NUR ---
MS RN RECEIVED ON BED, AWAKE,ALERT,ORIENTED X4,S/P LEFT HIP SURGERY W/ LEG IMMOBILIZER ON, SX SITE COVERED W/ DRESSING DRY ANS INTACT, DENIES PAIN AT THIS TIME, NO SOB NOTED,ALL NEEDS ATTENDED.
--- NOTE | 2019-08-16 09:00 | NUR ---
MS COMBS BREAKFAST SERVED,DUE MEDS GIVEN,TOLERATED WELL.
[2019-08-16] MEDS: FERROUS SULFATE (325 MG) 325 MG/TAB TABLET PO SCH (09:19)
[2019-08-16] MEDS: CHOLECALCIFEROL 1,000 UNIT TABLET (VIT D3) PO SCH (09:19)
[2019-08-16] MEDS: ESCITALOPRAM OXALATE (10 MG) 10 MG TABLET PO SCH (09:20)
[2019-08-16] MEDS: PANTOPRAZOLE 40 MG TABLET.DR PO SCH (09:20)
[2019-08-16] MEDS: POTASSIUM CHLORIDE 20 MEQ TAB.PRT.SR PO SCH ×2 (09:20→18:30)
[2019-08-16] MEDS: CARVEDILOL 3.125 MG TABLET PO SCH ×2 (09:21→21:10)
[2019-08-16] MEDS: LISINOPRIL (5MG) 5 MG TABLET PO SCH (09:21)
[2019-08-16] MEDS: TORSEMIDE 20 MG TABLET PO SCH (09:24)
[2019-08-16] MEDS: FLUTICASONE/VILANTEROL 1 EACH BLST.W.DEV IH SCH (09:25)
[2019-08-16] MEDS: HYDROCODONE/APAP 5/325MG 1 EACH TABLET PO PRN ×3 (09:37→21:10)
[2019-08-16] MEDS: HYDROMORPHONE 1 MG/1 ML DISP.SYRIN IV PRN ×2 (11:22→15:15)
[2019-08-16] MEDS ORDERED: NA PHOS,M-B/NA PHOS,DI-BA 1 EA ENEMA RC PRN (11:30)
--- NOTE | 2019-08-16 11:30 | NUR ---
MS RN WAS SEEN BY PT, WILL MONITOR PATIENT.
[2019-08-16] MEDS: CEFTRIAXONE 1 G in IV D5W 50 ML IV SCH (15:15)
[2019-08-16] MEDS: LORAZEPAM 1 MG TABLET PO PRN (15:26)
[2019-08-16 16:00] VITALS: BP 116/71
--- NOTE | 2019-08-16 18:00 | NUR ---
MS RN ON BED, NO DISTRESS NOTED,ALL NEEDS ATTENDED.
[2019-08-16] MEDS: DOCUSATE SODIUM 100 MG CAPSULE PO PRN (18:31)
[2019-08-16] MEDS: RIVAROXABAN 10 MG TABLET PO SCH (18:31)
--- NOTE | 2019-08-16 19:03 | NUR ---
MS RN FLEET ENEMA GIVEN, ENDORSED TO BILINGUAL RESEARCH INTERVIEWER.
--- NOTE | 2019-08-16 19:15 | NUR ---
MS RN NOTE RECEIVED PT IN STABLE CONDITION A/O X4, CURRENTLY RESTING IN BED. NO SIGNS OF SOB OR DISTRESS, NO INDICATIONS OF PAIN. IV IN RFA #[address] WITH IVF INFUSING. NOTED WITH ABDUCTOR PILLOW. DVT PUMP ON TASHA. LEGS. ALL CURRENT NEEDS ATTENDED TO. BED LOW, LOCKED, UPPER RAILS UP, AND CALL LIGHT WITHIN REACH. WILL CONT. TO MONITOR.
[2019-08-16 20:15] VITALS: BP 142/85
[2019-08-16] MEDS: IV LR 1000 ML 1,000 ML IV PRN (22:39)
[2019-08-17] MEDS: HYDROCODONE/APAP 5/325MG 1 EACH TABLET PO PRN ×2 (04:50→09:59)
--- NOTE | 2019-08-17 06:19 | NUR ---
MS RN NOTE PT REMAINS IN STABLE CONDITION A/O X4, CURRENTLY RESTING IN BED. NO SIGNS OF SOB OR DISTRESS, PAIN TOLERABLE AT THIS TIME. IV IN RFA #[address] WITH IVF INFUSING. NOTED WITH ABDUCTOR PILLOW. DVT PUMP ON TASHA. LEGS. SX SITE DRY AND INTACT. ALL CURRENT NEEDS ATTENDED TO. BED LOW, LOCKED, UPPER RAILS UP, AND CALL LIGHT WITHIN REACH. WILL CONT. TO MONITOR AND ENDORSE TO NEXT SHIFT FOR KORI.
[2019-08-17 06:30] LABS: BASOPHILS # (AUTO) 0.2 /CMM (0.0-0.2); BASOPHILS % (AUTO) 1.5 % (0.0-2.0); EOSINOPHILS % (AUTO) 3.6 % (0.0-6.0); HEMATOCRIT 28 % (33-45); HEMOGLOBIN 9.2 g/dL (11.5-14.8); LYMPHOCYTES # (AUTO) 2.7 /CMM (0.8-4.8); LYMPHOCYTES % (AUTO) 21.8 % (20.0-44.0); MEAN CORPUSCULAR HGB CONC 33 g/dl (31.0-36.0); MEAN CORPUSCULAR VOLUME 98 fL (82-100); MONOCYTES # (AUTO) 2.1 /CMM (0.1-1.30); MONOCYTES % (AUTO) 17.3 % (2.0-12.0); NEUTROPHILS # (AUTO) 6.8 /CMM (1.8-8.9); NEUTROPHILS % (AUTO) 55.8 % (43.0-81.0); PLATELET COUNT (AUTO) 569 /CMM (150-450); RED BLOOD CELL COUNT(AUTO) 2.85 MIL/uL (4.0-5.2); WHITE BLOOD COUNT (AUTO) 12.2 K/uL (4.3-11.0)
[2019-08-17 06:42] LABS: CALCIUM, SERUM 9.2 mg/dL (8.5-10.1); CREATININE 0.8 mg/dL (0.6-1.3); POTASSIUM 3.5 mmol/L (3.5-5.1)
--- NOTE | 2019-08-17 07:10 | NUR ---
MS RN NOTES PATIENT IN BED EYES CLOSED, EASY TO AROUSE, RESPOND TO VERBAL AND TACTILE STIMULI. NO ACUTE DISTRESS NOTED. BREATHING UNLABORED. NO SOB NOTED. IV ACCESS PATENT AND INTACT, NO REDNESS OR SWELLING NOTED. SAFETY MEASURES IN PLACE. CALL LIGHT WITHIN REACH. WILL CONTINUE TO MONITOR ACCORDINGLY.
[2019-08-17] MEDS: PANTOPRAZOLE 40 MG TABLET.DR PO SCH (07:40)
[2019-08-17 08:00] VITALS: BP 150/82
[2019-08-17] MEDS: ESCITALOPRAM OXALATE (10 MG) 10 MG TABLET PO SCH (08:47)
[2019-08-17] MEDS: POTASSIUM CHLORIDE 20 MEQ TAB.PRT.SR PO SCH ×2 (08:47→16:16)
[2019-08-17] MEDS: FERROUS SULFATE (325 MG) 325 MG/TAB TABLET PO SCH (08:47)
[2019-08-17] MEDS: FLUTICASONE/VILANTEROL 1 EACH BLST.W.DEV IH SCH (08:47)
[2019-08-17] MEDS: CHOLECALCIFEROL 1,000 UNIT TABLET (VIT D3) PO SCH (08:47)
[2019-08-17] MEDS: TORSEMIDE 20 MG TABLET PO SCH (08:48)
[2019-08-17] MEDS: LISINOPRIL (5MG) 5 MG TABLET PO SCH (08:48)
[2019-08-17] MEDS: CARVEDILOL 3.125 MG TABLET PO SCH (08:48)
[2019-08-17] MEDS: METHOCARBAMOL (500MG) 500 MG TABLET PO SCH ×2 (09:18→16:16)
[2019-08-17] MEDS: LORAZEPAM 1 MG TABLET PO PRN (11:40)
[2019-08-17] MEDS: DOCUSATE SODIUM 100 MG CAPSULE PO PRN (11:47)
[2019-08-17] MEDS ORDERED: oxyCODONE/APAP (5/325 MG) 1 UDTAB TABLET PO PRN (12:00)
[2019-08-17] MEDS: IV LR 1000 ML 1,000 ML IV PRN (13:38)
--- NOTE | 2019-08-17 14:06 | NUR ---
MS RN NOTES PATIENT SEEN AND EVALUATED BY DR SHARP WITH NEW ORDERS MADE. NOTED AND CARRIED OUT.
[2019-08-17] MEDS ORDERED: METH500T6 PO (14:39)
[2019-08-17] MEDS ORDERED: OXYC1TAB8 PO ×2 (14:39→15:35)
--- NOTE | 2019-08-17 15:42 | NUR ---
MS RN NOTES EKG DONE RESULT RELAYED TO DR WILBERTO ENGLAND, NO NEW ORDERS MADE AT THIS TIME.
[2019-08-17 16:00] VITALS: BP 136/78
[2019-08-17] MEDS ORDERED: RIVAROXABAN 10 MG TABLET PO SCH (17:00)
--- NOTE | 2019-08-17 17:25 | NUR ---
MS HOTEL ASSOCIATE NOTES PATIENT DISCHARGE TO [facility] WITH STABLE VITAL SIGNS, REPORT GIVEN TO CRISTINO COMBS. ALERT ORIENTED X 4. NO ACUTE DISTRESS NOTED. BREATHING UNLABORED. NO SOB NOTED. DENIED PAIN AT THIS TIME. DISCHARGE INSTRUCTIONS GIVEN TO THE PATIENT INCLUDING LEFT HIP SURGERY DRESSING KEEP CLEAN DRY AND INTACT, FOLLOW UP WITH DR JESSICA FRY AND NEW MEDICATIONS. ALL BELONGINGS ACCOUNTED FOR. NEEDS ATTENDED AND ANTICIPATED. KEPT CLEAN DRY AND COMFORTABLE. PICKED UP VIA AMBULANCE IN A GURNEY ACCOMPANIED BY 2 EMT PERSONNEL IN STABLE CONDITION. LEFT HIP SURGERY DRESSING CLEAN DRY AND INTACT, NO REDNESS OR SWELLING AROUND THE DRESSING. ABDUCTOR PILLOW IN PLACE.
== END 2019-08-17 18:02 | DRG 470 ==
LOC: ER 13:19 → MED 15:41
PROVIDERS: ADMIT Registered Nurse; ATTEND Hospitalist
PROC: 0SRS0J9 Replacement of Left Hip Joint, Femoral Surface with Synthetic Substitute, Cemented, Open Approach (ICD-10-PCS; principal; 2019-08-12)
DX: S72.012A Unspecified intracapsular fracture of left femur, initial encounter for closed fracture (principal); I42.9 Cardiomyopathy, unspecified; N30.00 Acute cystitis without hematuria; W18.30XA Fall on same level, unspecified, initial encounter; Y92.89 Other specified places as the place of occurrence of the external cause; I11.0 Hypertensive heart disease with heart failure; I50.9 Heart failure, unspecified; I48.91 Unspecified atrial fibrillation; Z79.01 Long term (current) use of anticoagulants; Z85.528 Personal history of other malignant neoplasm of kidney; F32.9 Major depressive disorder, single episode, unspecified; F41.9 Anxiety disorder, unspecified; D50.9 Iron deficiency anemia, unspecified; I44.7 Left bundle-branch block, unspecified; D72.829 Elevated white blood cell count, unspecified; E83.42 Hypomagnesemia; E87.6 Hypokalemia; R79.89 Other specified abnormal findings of blood chemistry; M79.606 Pain in leg, unspecified; Z90.81 Acquired absence of spleen; Z85.3 Personal history of malignant neoplasm of breast; R07.89 Other chest pain; K59.00 Constipation, unspecified
CPT/HCPCS: 36415; 71045-TC; 73020; 73502; 74018; 80048-TC; 80061-TC; 81000-TC; 83735-TC; 84100-TC; 84443-TC; 84484-TC; 85025-TC; 85730-TC; 86850-TC; 86921-TC; 87040-TC; 87081-TC; 87086-TC; 88305-TC; 88311-TC; 93307-TC; 97110-TC; 97116-TC; 97530-TC; A4217; A6209; C1776; G0378; J0690; J0696; J1100; J1170; J2250; J2270; J2405; J2704; J2710; J3010; J3475; J3480; J3490; J7030; J7060; J7120

== ENCOUNTER 2020-01-17 10:01 | Outpatient (CLI) | payer MEDICARE ==
[~2020-01-17 10:01] MED LIST changes: +CHOL100044 PO; +DICL100G16 TP; -ESCI10TA PO; +ESCI20TA PO; +FERR325T23 PO; +HYDR59LO5 TP; +LOPE2CAP PO; +LORA1TAB PO; +METH500T6 PO; +OXYC1TAB8 PO; +PANT40TA2 PO; +POTA20TA83 PO
== END 2020-01-17 23:59 | disposition home or self-care (01) ==
LOC: US 10:01
DX: N83.292 Other ovarian cyst, left side (principal); Z96.642 Presence of left artificial hip joint
CPT/HCPCS: 76856-TC

== ENCOUNTER 2021-01-18 19:57 | Inpatient (IN) | payer MEDICARE ==
[~2021-01-18] VITALS: Ht 167.6 cm; Wt 80.0 kg
[~2021-01-18 19:57] MED LIST changes: +METH-806 PO; -METH500T6 PO
[2021-01-18 20:25] LABS: BASOPHILS # (AUTO) 0.2 /CMM (0.0-0.2); BASOPHILS % (AUTO) 2.1 % (0.0-2.0); EOSINOPHILS % (AUTO) 0.5 % (0.0-6.0); HEMATOCRIT 39 % (33-45); HEMOGLOBIN 12.8 g/dL (11.5-14.8); LYMPHOCYTES # (AUTO) 3.7 /CMM (0.8-4.8); LYMPHOCYTES % (AUTO) 36.7 % (20.0-44.0); MEAN CORPUSCULAR HGB CONC 33 g/dl (31.0-36.0); MEAN CORPUSCULAR VOLUME 98 fL (82-100); MONOCYTES # (AUTO) 0.4 /CMM (0.1-1.30); NEUTROPHILS # (AUTO) 5.7 /CMM (1.8-8.9); NEUTROPHILS % (AUTO) 56.7 % (43.0-81.0); PLATELET COUNT (AUTO) 474 /CMM (150-450); RED BLOOD CELL COUNT(AUTO) 3.96 MIL/uL (4.0-5.2); WHITE BLOOD COUNT (AUTO) 10.1 K/uL (4.3-11.0)
[2021-01-18 20:30] VITALS: BP 131/97
--- NOTE | 2021-01-18 20:32 | NUR ---
FRANKLYN FROM HOME TO ER BED 6. AAOX6. NOT IN RESP DISTRES, BREATHING EVEN AND UNLABORED. BROUGHT IN FOR SOB - DIFFICULTY BREATHING. PT IS NOTED SATTING @ 96% OPN RA. BUT STILL PLCED ON O2 VIA NC D/T PT IS BASELINE O2 USER AT HOME. PT REPORTS THAT SHE HAD COVID 2 MONTHS AGO. WAS AT THE BEDSIDE FOR EVAL. ORDERS RECEIVED, NOTED AND CARRIED OUT.
[2021-01-18 20:47] LABS: ALBUMIN 3.6 g/dL (3.4-5.0); BILIRUBIN,DIRECT 0.1 mg/dL (0.0-0.2); BILIRUBIN,TOTAL 0.4 mg/dL (0.2-1.0); CALCIUM, SERUM 8.9 mg/dL (8.5-10.1); CREATININE 1.3 mg/dL (0.6-1.3); POTASSIUM 3.5 mmol/L (3.5-5.1); TOTAL PROTEIN, SERUM 7.5 g/dL (6.4-8.2)
[2021-01-18 20:57] LABS: LYMPHOCYTES % (MANUAL) 33 % (16-48); MONOCYTES % (MANUAL) 8 % (0-11.0); NEUTROPHILS % (MANUAL) 57 (42-76); REACTIVE LYMPHOCYTES 2 % (0-0)
[2021-01-18] MEDS ORDERED: FUROSEMIDE 40 MG/4 ML VIAL IV ONE (21:30)
--- NOTE | 2021-01-18 21:30 | NUR ---
Jonathan ortez in [facility] - 01/18/21 at 2130 by DELANEY CALLED LAB FOR COVID SWAB
[2021-01-18] MEDS ORDERED: FUROSEMIDE 40 MG/4 ML VIAL ONE (21:49)
--- NOTE | 2021-01-18 22:15 | NUR ---
covid negative reported by lab.
--- NOTE | 2021-01-18 22:16 | NUR ---
SPOKE TO RN SUP, PT ASSIGNED TO TELE BED 323-2
[2021-01-18] MEDS ORDERED: LORAZEPAM 1 MG TABLET PO PRN (22:30)
[2021-01-18] MEDS: POTASSIUM CHLORIDE 20 MEQ TAB.PRT.SR PO SCH (22:30)
[2021-01-18] MEDS ORDERED: ONDANSETRON HCL/PF 4 MG/2 ML VIAL IVP PRN (22:30)
[2021-01-18] MEDS ORDERED: DICLOFENAC TOPICAL 100 GM GEL..GM. TP PRN (22:30)
[2021-01-18] MEDS ORDERED: METHOCARBAMOL (500MG) 500 MG TABLET PO SCH (22:30)
[2021-01-18] MEDS ORDERED: ZOLPIDEM TARTRATE 5 MG TABLET PO PRN (22:30)
[2021-01-18] MEDS ORDERED: FLUTICASONE/SALMETEROL 1 DISK IH SCH (22:30)
[2021-01-18] MEDS ORDERED: Z GUARD REMEDY 2 OZ OINT TP PRN (22:30)
[2021-01-18] MEDS ORDERED: MAGNESIUM HYDROXIDE 30 ML UDC PO PRN (22:30)
[2021-01-18] MEDS ORDERED: ESCITALOPRAM OXALATE (10 MG) 10 MG TABLET PO ONE (22:30)
[2021-01-18] MEDS: CARVEDILOL 6.25 MG TABLET PO SCH (22:30)
--- NOTE | 2021-01-18 22:46 | NUR ---
REPORT GIVEN TO GARRET RONDON FOR KORI
--- NOTE | 2021-01-18 23:00 | NUR ---
pt trasnported to unit on [facility] with emt and rn at bedside w/ acls protocol. nad noted during transport.
[2021-01-18] MEDS ORDERED: GABAPENTIN 400 MG CAPSULE PO SCH (23:30)
[2021-01-18] MEDS ORDERED: ESCI20TA PO (23:39)
[2021-01-19] MEDS: FUROSEMIDE 40 MG/4 ML VIAL IV SCH ×4 (00:42→12:13)
--- NOTE | 2021-01-19 01:22 | NUR ---
MS/TELE/RN PATIENT WAS RECEIVED FROM [facility]IA [facility] AT ABOUT 2255. PATIENT WAS AWAKE, ALERT, ORIENTED, COMFORTABLE, NO C/O PAIN, NO DISTRESS NOTED. MADE COMFORTABLE IN BED. ADMISSION WAS DONE, SKIN ASSESSMENT WAS DONE. PATIENT WAS SEEN BY CHANDNI RAMIREZ DNP, AT BEDSIDE. HOME MEDICATION BOTTLES SENT TO PHARMACY, PATIENT WAS INFORMED AND SIGNED THE MEDICATION PLASTIC CONTAINERS. PLAN OF CARE DISCUSSED, VERBALIZED UNDERSTANDING. ESCITALOPRAM PO NOT ADMINISTERED, PER PATIENT SHE IS NOT TAKING IT ANYMORE. PATIENT TOOK HER OWN ADVAIR AND MIRTAZAPINE. FALL PRECAUTIONS PER PROTOCOL WERE ESTABLISHED. WILL MONITOR.
[2021-01-19] MEDS ORDERED: GABA600T12 PO (01:40)
[2021-01-19] MEDS ORDERED: CHOL100040 PO (01:40)
[2021-01-19] MEDS ORDERED: MIRT45TA83 PO (01:40)
--- NOTE | 2021-01-19 06:21 | NUR ---
MS/TELE/RN PATIENT IS AWAKE, COMFORTABLE, NO C/O PAIN, NO DISTRESS NOTED, ASSISTED TO THE BSC AND BACK TO BED, ALL NEEDS ATTENDED AT THIS TIME, WILL CONTINUE TO MONITOR.
[2021-01-19] MEDS ORDERED: DICLOFENAC TOPICAL 100 GM GEL..GM. TP PRN (06:30)
[2021-01-19 06:38] LABS: BASOPHILS # (AUTO) 0.1 /CMM (0.0-0.2); BASOPHILS % (AUTO) 1.2 % (0.0-2.0); EOSINOPHILS % (AUTO) 0.2 % (0.0-6.0); HEMATOCRIT 39 % (33-45); HEMOGLOBIN 12.8 g/dL (11.5-14.8); LYMPHOCYTES # (AUTO) 2.6 /CMM (0.8-4.8); LYMPHOCYTES % (AUTO) 24.3 % (20.0-44.0); MEAN CORPUSCULAR HGB CONC 33 g/dl (31.0-36.0); MEAN CORPUSCULAR VOLUME 97 fL (82-100); MONOCYTES % (AUTO) 9.2 % (2.0-12.0); NEUTROPHILS # (AUTO) 7.1 /CMM (1.8-8.9); NEUTROPHILS % (AUTO) 65.1 % (43.0-81.0); PLATELET COUNT (AUTO) 450 /CMM (150-450); RED BLOOD CELL COUNT(AUTO) 3.98 MIL/uL (4.0-5.2); WHITE BLOOD COUNT (AUTO) 10.8 K/uL (4.3-11.0)
--- NOTE | 2021-01-19 07:37 | NUR ---
MS/RN Opening note Patient received from night clerk auditor. A/O X4, vital signs stable, denies any pain or discomfort at this time. Daily weight taken this morning - 162lbs. Heplock noted, flushing well, no signs of infiltration. Safety measures in place, call light within reach. Will continue to monitor and ensure safety.
[2021-01-19 07:58] VITALS: BP 151/94
[2021-01-19 08:16] LABS: CALCIUM, SERUM 8.6 mg/dL (8.5-10.1); CREATININE 1.1 mg/dL (0.6-1.3); MAGNESIUM 1.7 mg/dL (1.8-2.4); PHOSPHORUS 4.2 mg/dL (2.5-4.9); POTASSIUM 3.1 mmol/L (3.5-5.1)
[2021-01-19 08:29] VITALS: BP 151/94
[2021-01-19] MEDS: FERROUS SULFATE (325 MG) 325 MG/TAB TABLET PO SCH (08:35)
[2021-01-19] MEDS: FLUTICASONE/VILANTEROL 1 EACH BLST.W.DEV IH SCH (08:35)
[2021-01-19] MEDS: POTASSIUM CHLORIDE 20 MEQ TAB.PRT.SR PO SCH ×2 (08:35→16:38)
[2021-01-19] MEDS: CHOLECALCIFEROL 1,000 UNIT TABLET (VIT D3) PO SCH (08:35)
[2021-01-19] MEDS: PANTOPRAZOLE 40 MG TABLET.DR PO SCH (08:35)
[2021-01-19] MEDS: CITALOPRAM HYDROBROMIDE 20 MG TABLET PO SCH (08:36)
[2021-01-19] MEDS: CARVEDILOL 6.25 MG TABLET PO SCH ×2 (08:37→16:39)
[2021-01-19] MEDS: RIVAROXABAN 10 MG TABLET PO SCH (08:45)
[2021-01-19] MEDS ORDERED: CITA20TA16 PO (08:52)
[2021-01-19] MEDS ORDERED: POTASSIUM CHLORIDE 20 MEQ TAB.PRT.SR PO ONE ×2 (09:00→13:00)
[2021-01-19] MEDS ORDERED: LISINOPRIL (5MG) 5 MG TABLET PO SCH (09:00)
[2021-01-19] MEDS ORDERED: CHOLECALCIFEROL 1,000 UNIT TABLET (VIT D3) PO SCH (09:00)
[2021-01-19] MEDS ORDERED: TORSEMIDE 20 MG TABLET PO SCH (09:00)
--- NOTE | 2021-01-19 09:12 | NUR ---
MS/RN K+ replaced Potassium level 3.1, Dr Horvath made aware, replaced with 40meq now and a further 20meq at 1p.
[2021-01-19] MEDS: Magnesium 1GM/D5W 100ML PREMIX 100 ML IV SCH ×2 (09:26→10:32)
--- NOTE | 2021-01-19 10:00 | NUR ---
MS/RN S/B Dr Horvath Seen by [facility] - dakota morataya, strict I&O and labs ordered for tomorrow.
[2021-01-19 10:15] LABS: THYROID STIMULATING HORMONE 0.67 uIU/mL (0.358-3.74)
--- NOTE | 2021-01-19 11:00 | NUR ---
MS/RN Labs Morning labs reviewed: -K+ 3.1 -Mag 1.7 Both labs with orders to replace.
[2021-01-19 12:00] VITALS: BP 128/95
--- NOTE | 2021-01-19 15:07 | NUR ---
MS/RN 2D echo 2D echo at bedside.
[2021-01-19 16:00] VITALS: BP 126/94
--- NOTE | 2021-01-19 16:58 | NUR ---
Spoke with patient, she is alert and pleasant. She lives alone in the third floor apartment with elevator access.She uses a walker with ambulation. She requires min assist with adl's. Currently she is on service with [facility] [phone]. Her pcp is at [facility]. Patient want to return home, she needs assistance with transportation to go home. Addendum: 01/19/21 at 1658 by YOLIS JORGE RN Amended: Links added.
--- NOTE | 2021-01-19 18:37 | NUR ---
MS/RN End note Patient remains in stable condition, all needs attended. Will endorse to nightshift.
--- NOTE | 2021-01-19 19:30 | NUR ---
TELE/RN OPENING NOTES RECEIVED PATIENT RESTING IN BED. PATIENT IS ALERT AND ORIENTED X 4. PATIENTS BREATHING IS EVEN AND UNLABORED. PATIENT SHOWS NO SIGNS OF SOB OR RESPIRATORY DISTRESS. PATIENT STATES NO PAIN AT THIS TIME. TELE READING SR 80 PVC. IV ACCESS L AC INTACT FLUSHING WELL. SAFETY MEASURES ARE IN PLACE, BED IS LOCKED AND PLACED IN THE LOW POSITION, SIDE RAILS UP X 2, CALL LIGHT IS WITHIN REACH. WILL CONTINUE TO MONITOR THROUGH OUT SHIFT.
[2021-01-19 20:00] VITALS: BP 90/134
[2021-01-19] MEDS: MIRTAZAPINE 45 MG TABLET PO SCH (21:56)
[2021-01-19] MEDS: GABAPENTIN 400 MG CAPSULE PO SCH (21:57)
[2021-01-19] MEDS: ACETAMINOPHEN 325 MG TABLET PO PRN (22:46)
--- NOTE | 2021-01-19 22:47 | NUR ---
TELE/RN NOTES PATIENT STATES HEADACHE AND WOULD LIKE PAIN MED. PATIENT GIVEN TYLENOL 650 MG PO. PATIENT V/S ARE STABLE. WILL CONTINUE TO MONITOR.
[2021-01-20] VITALS: BP 123/82
[2021-01-20 04:00] VITALS: BP 147/86
--- NOTE | 2021-01-20 06:40 | NUR ---
TELE/RN CLOSING NOTES PATIENT RESTING IN BED. PATIENT IS ALERT AND ORIENTED X 4. PATIENTS BREATHING IS EVEN AND UNLABORED. PATIENT SHOWS NO SIGNS OF SOB OR RESPIRATORY DISTRESS. TELE READING SR 75. IV ACCESS L AC INTACT FLUSHING WELL. SAFETY MEASURES ARE IN PLACE, BED IS LOCKED AND PLACED IN THE LOW POSITION, SIDE RAILS UP X 2, CALL LIGHT IS WITHIN REACH. WILL CONTINUE TO MONITOR THROUGH OUT SHIFT.
[2021-01-20 06:58] LABS: BASOPHILS # (AUTO) 0.1 /CMM (0.0-0.2); BASOPHILS % (AUTO) 1.2 % (0.0-2.0); HEMATOCRIT 43 % (33-45); LYMPHOCYTES # (AUTO) 2.9 /CMM (0.8-4.8); LYMPHOCYTES % (AUTO) 29.5 % (20.0-44.0); MEAN CORPUSCULAR HGB CONC 33 g/dl (31.0-36.0); MEAN CORPUSCULAR VOLUME 98 fL (82-100); MONOCYTES # (AUTO) 1.4 /CMM (0.1-1.30); MONOCYTES % (AUTO) 14.6 % (2.0-12.0); NEUTROPHILS % (AUTO) 50.7 % (43.0-81.0); PLATELET COUNT (AUTO) 472 /CMM (150-450); RED BLOOD CELL COUNT(AUTO) 4.39 MIL/uL (4.0-5.2); WHITE BLOOD COUNT (AUTO) 9.8 K/uL (4.3-11.0)
[2021-01-20 07:40] LABS: ALANINE AMINOTRANSFERASE 11 U/L (12-78); ALBUMIN 3.6 g/dL (3.4-5.0); ALKALINE PHOSPHATASE 118 U/L (46-116); ASPARTATE AMINOTRANSFERASE 27 U/L (15-37); BILIRUBIN,TOTAL 0.6 mg/dL (0.2-1.0); CALCIUM, SERUM 9.6 mg/dL (8.5-10.1); CARBON DIOXIDE 31 mmol/L (21-32); CHLORIDE 99 mmol/L (98-107); CREATININE 1.5 mg/dL (0.6-1.3); GLUCOSE 101 mg/dL (74-106); MAGNESIUM 2.6 mg/dL (1.8-2.4); PHOSPHORUS 3.8 mg/dL (2.5-4.9); POTASSIUM 3.6 mmol/L (3.5-5.1); SODIUM SERUM 138 mmol/L (136-145); TOTAL PROTEIN, SERUM 7.5 g/dL (6.4-8.2); UREA NITROGEN, BLOOD 22 mg/dL (7-18)
--- NOTE | 2021-01-20 07:46 | NUR ---
ELECTRICIAN SUBSTATION OPENING NOTES PATIENT RESTING IN BED, AOX4, BREATHING EVEN AND UNLABORED WITH NO SIGNS OF RESPIRATORY DISTRESS, TELE SR 80, IV ACCESS L AC INTACT AND PATENT, BED LOCKED AND LOWEST POSITION, SIDE RAILS X2, CALL LIGHT WITHIN EASY REACH AND ANSWERED PROMPTLY.
[2021-01-20 08:00] VITALS: BP 107/60
[2021-01-20] MEDS: CHOLECALCIFEROL 1,000 UNIT TABLET (VIT D3) PO SCH (08:39)
[2021-01-20] MEDS: FLUTICASONE/VILANTEROL 1 EACH BLST.W.DEV IH SCH (08:39)
[2021-01-20] MEDS: DOCUSATE SODIUM 100 MG CAPSULE PO SCH (08:40)
[2021-01-20] MEDS: CITALOPRAM HYDROBROMIDE 20 MG TABLET PO SCH (08:40)
[2021-01-20] MEDS: POTASSIUM CHLORIDE 20 MEQ TAB.PRT.SR PO SCH ×2 (08:41→17:13)
[2021-01-20] MEDS: CARVEDILOL 6.25 MG TABLET PO SCH ×3 (08:41→17:13)
[2021-01-20] MEDS: RIVAROXABAN 10 MG TABLET PO SCH (08:44)
[2021-01-20] MEDS: PANTOPRAZOLE 40 MG TABLET.DR PO SCH (08:45)
[2021-01-20] MEDS: FERROUS SULFATE (325 MG) 325 MG/TAB TABLET PO SCH (08:45)
--- NOTE | 2021-01-20 08:48 | NUR ---
RN NOTES SPOKE WITH DAYNE PHARMACIST ABOUT PATIENTS COLCHICINE, PER DAYNE HOLD MEDICATION CHOLCHICINE FOR NOW, WILL INFORM MD ABOUT DOSING.
[2021-01-20] MEDS ORDERED: COLCHICINE 0.6 MG TABLET PO SCH (09:00)
[2021-01-20 11:22] LABS: ABG BASE EXCESS 3.8 mmol/L; ABG OXYGEN SATURATION 95.6 % (92.0-98.5); ABG PCO2 26.2 mmHg (35.0-45.0); ABG PH 7.585 (7.350-7.450); ABG PO2 74.1 mmHg (75.0-100.0); AaDO2 44.3 mmHg; COHb 0.7 % (0.5-1.5); MetHb 0.3 % (0.0-1.5); O2Hb 94.6 % (94.0-97.0); SITE, ABG Right Radial; VENT MODE, BG ROOM AIR
[2021-01-20 12:00] VITALS: BP 127/90
[2021-01-20 16:00] VITALS: BP 116/75
--- NOTE | 2021-01-20 17:20 | NUR ---
RN NOTES PATIENT REFUSED CARVEDILOL MEDICATION IN PM; EXPLAINED IMPORTANCE OF MEDICATION TO PATIENT AND POSSIBLE S/E BUT PATIENT STILL REFUSED.
--- NOTE | 2021-01-20 18:51 | NUR ---
HEALTH ADMINISTRATION TEACHER CLOSING NOTES PATIENT RESTING IN BED, AOX4, BREATHING EVEN AND UNLABORED WITH NO SIGNS OF RESPIRATORY DISTRESS, TELE SR 80, IV ACCESS L AC INTACT AND PATENT, BED LOCKED AND LOWEST POSITION, SIDE RAILS X2, CALL LIGHT WITHIN EASY REACH AND ANSWERED PROMPTLY.
[2021-01-20 20:00] VITALS: BP 118/59
--- NOTE | 2021-01-20 21:10 | NUR ---
MS/TELE/RN DURING INITIAL ROUNDING, FOUND PATIENT ON BED AWAKE, ALERT, ORIENTED, COMFORTABLE, NO C/O PAIN, NO DISTRESS NOTED. REDNESS WAS NOTED IV SITE IN RIGHT AC, I REMOVED THE IV AND INSERTED A NEW IV AT RIGHT F/A. PLACED CALL LIGHT IN REACH, FALL PRECAUTIONS PER PROTOCOL OBSERVED.WILL MONITOR.
[2021-01-20] MEDS: GABAPENTIN 400 MG CAPSULE PO SCH (22:11)
[2021-01-20] MEDS: MIRTAZAPINE 45 MG TABLET PO SCH (22:11)
[2021-01-20] MEDS: oxyCODONE/APAP (5/325 MG) 1 UDTAB TABLET PO PRN (22:28)
[2021-01-20] MEDS ORDERED: TRAMADOL HCL 50 MG TABLET PO PRN (23:00)
[2021-01-20] MEDS ORDERED: COLCHICINE 0.6 MG TABLET PO ONE (23:00)
--- NOTE | 2021-01-20 23:27 | NUR ---
MS/TELE/RN RECEIVED INSTRUCTION FOR OSCAR TARIQ, TO GIVE COLCHICINE 1.2 MG, AND COLCHICINE .6 MG AFTER ONE HOUR. COLCHICINE 1.2 MG PO WAS GIVEN NOW.
[2021-01-21] VITALS: BP 108/66
[2021-01-21] MEDS ORDERED: COLCHICINE 0.6 MG TABLET PO SCH (00:30)
[2021-01-21 04:00] VITALS: BP 108/66
--- NOTE | 2021-01-21 06:09 | NUR ---
MS/TELE/RN PATIENT IS STILL SLEEPING AT THIS TIME, APPEAR COMFORTABLE, NO SIGNS OF DISTRESS NOTED, CALL LIGHT IN REACH. ALL NEEDS ATTENDED AT THIS TIME, WILL CONTINUE TO MONITOR.
[2021-01-21 07:25] LABS: BASOPHILS # (AUTO) 0.1 /CMM (0.0-0.2); BASOPHILS % (AUTO) 1.2 % (0.0-2.0); EOSINOPHILS % (AUTO) 4.2 % (0.0-6.0); HEMATOCRIT 44 % (33-45); HEMOGLOBIN 14.4 g/dL (11.5-14.8); LYMPHOCYTES # (AUTO) 2.4 /CMM (0.8-4.8); LYMPHOCYTES % (AUTO) 20.9 % (20.0-44.0); MEAN CORPUSCULAR HGB CONC 32 g/dl (31.0-36.0); MEAN CORPUSCULAR VOLUME 100 fL (82-100); MONOCYTES # (AUTO) 1.4 /CMM (0.1-1.30); NEUTROPHILS % (AUTO) 61.7 % (43.0-81.0); PLATELET COUNT (AUTO) 420 /CMM (150-450); RED BLOOD CELL COUNT(AUTO) 4.44 MIL/uL (4.0-5.2); WHITE BLOOD COUNT (AUTO) 11.3 K/uL (4.3-11.0)
[2021-01-21 07:42] LABS: CALCIUM, SERUM 9.7 mg/dL (8.5-10.1); CREATININE 1.3 mg/dL (0.6-1.3); MAGNESIUM 2.5 mg/dL (1.8-2.4); PHOSPHORUS 4.1 mg/dL (2.5-4.9); POTASSIUM 4.6 mmol/L (3.5-5.1)
--- NOTE | 2021-01-21 07:49 | NUR ---
BOAT MASTER OPENING NOTES PATIENT RESTING IN BED, AOX4, BREATHING EVEN AND UNLABORED WITH NO SIGNS OF RESPIRATORY DISTRESS, TELE SR 80, IV ACCESS R FOREARM INTACT AND PATENT, BED LOCKED AND LOWEST POSITION, SIDE RAILS X2, CALL LIGHT WITHIN EASY REACH AND ANSWERED PROMPTLY.
[2021-01-21] MEDS: ACETAMINOPHEN 325 MG TABLET PO PRN ×2 (07:59→14:59)
[2021-01-21 08:00] VITALS: BP 135/75
[2021-01-21] MEDS: CHOLECALCIFEROL 1,000 UNIT TABLET (VIT D3) PO SCH (09:00)
[2021-01-21] MEDS: CITALOPRAM HYDROBROMIDE 20 MG TABLET PO SCH (09:01)
[2021-01-21] MEDS: DOCUSATE SODIUM 100 MG CAPSULE PO SCH (09:01)
[2021-01-21] MEDS: POTASSIUM CHLORIDE 20 MEQ TAB.PRT.SR PO SCH (09:01)
[2021-01-21] MEDS: FERROUS SULFATE (325 MG) 325 MG/TAB TABLET PO SCH (09:01)
[2021-01-21] MEDS: RIVAROXABAN 10 MG TABLET PO SCH (09:01)
[2021-01-21] MEDS: PANTOPRAZOLE 40 MG TABLET.DR PO SCH (09:03)
[2021-01-21] MEDS: CARVEDILOL 6.25 MG TABLET PO SCH (09:10)
[2021-01-21] MEDS: FLUTICASONE/VILANTEROL 1 EACH BLST.W.DEV IH SCH (09:11)
[2021-01-21 12:00] VITALS: BP 131/94
[2021-01-21] MEDS: oxyCODONE/APAP (5/325 MG) 1 UDTAB TABLET PO PRN ×2 (12:08→18:37)
--- NOTE | 2021-01-21 14:10 | NUR ---
RN NOTES PATIENT WAS SEEN BY DR. HERNANDEZ TODAY W/ ORDER FOR DISCHARGE TO HOME W/ RESUMPTION OF PREVIOUS HOME HEALTH; PATIENT MADE AWARE BUT VERBALIZED CONCERN FOR NOT WANTING TO GO HOME. CHARGE NURSE AND PROJECT MANAGEMENT PROFESSOR MADE AWARE. CHARGE NURSE DISCUSSED DISCHARGE PLAN WITH PATIENT.
[2021-01-21 16:00] VITALS: BP 130/72
--- NOTE | 2021-01-21 17:02 | NUR ---
RN NOTES AMWEST HORSE TRADER CALLED AND INFORMED RN THAT VICE PRESIDENT GLOBAL ADVERTISING SALES WILL CONE PICKER PATIENT AT 1800.
--- NOTE | 2021-01-21 19:05 | NUR ---
TRANSPORT ENGINEER NOTES PATIENT WAS SEEN BY DR. DAVID CHRIS W/ ORDER FOR DISCHARGE TO HOME W/ HOME HEALTH FOLLOW-UP; ARRANGED PREVIOUSLY PER REVENUE TAX SPECIALIST'S NOTES. DISCHARGE INSTRUCTIONS AND EDUCATION PROVIDED TO PATIENT AND VERBALIZED UNDERSTANDING; DISCHARGE FORM AND BELONGINGS LIST FORM SIGNED BY PATIENT, ALL BELONGINGS ACCOUNTED FOR. EARLY DINNER TRAY PROVIDED TO PATIENT. NAME ARMBAND AND IV LINE REMOVED. NO SKIN ISSUES NOTED. REQUESTED HOTPACKS FOR HER NECK FOR PAIN RELIEF, TAKEN FAIRLY BY PATIENT. PATIENT WAS PICKED UP BY [facility], ACCOMPANIED BY 2 RIVET SPINNER. CHARGE NURSE AND MD AWARE OF DISCHARGE.
== END 2021-01-21 19:00 | disposition home health service (06) | DRG 291 ==
LOC: ER 19:59 → TELE 22:23 → MED 01-21 12:41 → TELE 01-21 12:42
PROVIDERS: ADMIT Nurse Practitioner Acute Care
DX: I11.0 Hypertensive heart disease with heart failure (principal); N17.0 Acute kidney failure with tubular necrosis; D68.59 Other primary thrombophilia; J98.11 Atelectasis; I48.20 Chronic atrial fibrillation, unspecified; I50.33 Acute on chronic diastolic (congestive) heart failure; F41.9 Anxiety disorder, unspecified; E87.6 Hypokalemia; E83.42 Hypomagnesemia; Z20.822 Contact with and (suspected) exposure to COVID-19; Z90.10 Acquired absence of unspecified breast and nipple; Z90.5 Acquired absence of kidney; Z85.3 Personal history of malignant neoplasm of breast; Z85.528 Personal history of other malignant neoplasm of kidney; Z79.51 Long term (current) use of inhaled steroids; Z79.899 Other long term (current) drug therapy; Z79.01 Long term (current) use of anticoagulants; D50.9 Iron deficiency anemia, unspecified; F32.9 Major depressive disorder, single episode, unspecified; J45.909 Unspecified asthma, uncomplicated; Z86.16 Personal history of COVID-19; Z90.49 Acquired absence of other specified parts of digestive tract; Z90.81 Acquired absence of spleen; Z92.21 Personal history of antineoplastic chemotherapy; Z96.642 Presence of left artificial hip joint; Z87.891 Personal history of nicotine dependence; Z87.01 Personal history of pneumonia (recurrent); Z99.81 Dependence on supplemental oxygen; R06.4 Hyperventilation; N13.9 Obstructive and reflux uropathy, unspecified; I42.9 Cardiomyopathy, unspecified
CPT/HCPCS: 36415; 36600; 71045-TC; 80048-TC; 80053-TC; 80061-TC; 80076-TC; 82728-TC; 82803-TC; 83540-TC; 83735-TC; 83880; 84100-TC; 84439-TC; 84443-TC; 84484-TC; 85025-TC; 85378-TC; 87081-TC; 93307-TC; 93970-TC; 97116-TC; 97530-TC; C9803; G0378; J1940; J2405; J3475; J7030

== ENCOUNTER 2022-01-09 12:01 | Inpatient (IN) | payer MEDICARE ==
[~2022-01-09] VITALS: Ht 167.6 cm; Wt 71.7 kg
[~2022-01-09 12:01] MED LIST changes: -ALBU18HF2 INH; +CHOL100040 PO; -CHOL100044 PO; +CITA20TA16 PO; -DICL100G16 TP; -ESCI20TA PO; +GABA600T12 PO; -HYDR59LO5 TP; -LISI2.5T2 PO; -LOPE2CAP PO; -LORA1TAB PO; -METH-806 PO; +MIRT45TA83 PO
--- NOTE | 2022-01-09 12:10 | NUR ---
[id number] HOME GENERALIZED TREMORS, UNSTEADY GAIT SINCE MORNING. BG 118 CIGAR HEAD STRINGER. PT STATED SIMILAR SYMPTOMS 2 DAYS AGO BUT IT RESOLVED. PLACED COMFORTABLY ON ER BED. ATTACHED TO RAW SCALES OPERATOR
--- NOTE | 2022-01-09 12:12 | NUR ---
IV CANNULA G20 INSERTED ON RIGHT AC. BLOOD SPECIMEN GIVEN TO CARBON COATING MACHINE OPERATOR
--- NOTE | 2022-01-09 12:12 | NUR ---
DR JON AT BEDSIDE
[2022-01-09] MEDS ORDERED: LORAZEPAM INJ 2 MG/ML VIAL IV ONE (12:30)
[2022-01-09] MEDS ORDERED: LORAZEPAM INJ 2 MG/ML VIAL ONE (12:36)
[2022-01-09 12:45] LABS: BASOPHILS # (AUTO) 0.2 K/uL (0.0-0.2); EOSINOPHILS % (AUTO) 5.6 % (0.0-6.0); HEMATOCRIT 38 % (33-45); HEMOGLOBIN 12.2 g/dL (11.5-14.8); LYMPHOCYTES # (AUTO) 3.1 K/uL (0.8-4.8); MEAN CORPUSCULAR HGB CONC 32 g/dl (31.0-36.0); MEAN CORPUSCULAR VOLUME 99 fL (82-100); MONOCYTES # (AUTO) 1.2 K/uL (0.1-1.30); MONOCYTES % (AUTO) 12.3 % (2.0-12.0); NEUTROPHILS # (AUTO) 4.6 K/uL (1.8-8.9); NEUTROPHILS % (AUTO) 48.1 % (43.0-81.0); PLATELET COUNT (AUTO) 350 K/uL (150-450); RED BLOOD CELL COUNT(AUTO) 3.86 MIL/uL (4.0-5.2); WHITE BLOOD COUNT (AUTO) 9.5 K/uL (4.3-11.0)
--- NOTE | 2022-01-09 12:47 | NUR ---
COVID ANTIGEN SWAB SENT TO LAB
--- NOTE | 2022-01-09 13:30 | NUR ---
-PATIENT WHEELED TO CT SCAN BY CERAMICS TEACHER
[2022-01-09 13:42] LABS: CALCIUM, SERUM 8.8 mg/dL (8.5-10.1); CARBON DIOXIDE 31 mmol/L (21-32); CHLORIDE 102 mmol/L (98-107); CREATININE 1.6 mg/dL (0.6-1.3); GLUCOSE 76 mg/dL (74-106); SODIUM SERUM 139 mmol/L (136-145); UREA NITROGEN, BLOOD 31 mg/dL (7-18)
[2022-01-09 13:47] LABS: ALANINE AMINOTRANSFERASE 18 U/L (12-78); ALBUMIN 3.3 g/dL (3.4-5.0); ALKALINE PHOSPHATASE 73 U/L (46-116); BILIRUBIN,TOTAL 0.5 mg/dL (0.2-1.0)
--- NOTE | 2022-01-09 13:59 | NUR ---
RECEIVED REPORT FROM LAB. PT TROP 67.3, DR JON MADE AWARE
[2022-01-09] MEDS ORDERED: LISI10TA29 PO (14:03)
[2022-01-09] MEDS ORDERED: ASPIRIN 325 MG TABLET ONE (14:14)
--- NOTE | 2022-01-09 14:18 | NUR ---
MOVE SHEET SUBMITTED AND CALLED FOR TELE BED.
--- NOTE | 2022-01-09 14:24 | NUR ---
[facility] CALLED CORPORATE INTERN PAGED.
[2022-01-09] MEDS ORDERED: ASPIRIN 325 MG TABLET PO ONE (14:30)
[2022-01-09 14:43] LABS: ASPARTATE AMINOTRANSFERASE 36 U/L (15-37)
[2022-01-09] MEDS ORDERED: LEVOFLOXACIN 750 MG /D5W 150ML 750 MG in PREMIX 1 EA IV SCH (16:00)
[2022-01-09] MEDS ORDERED: HYDROCODONE/APAP 5/325MG TABLET PO PRN (16:00)
[2022-01-09] MEDS ORDERED: Z GUARD REMEDY 4 OZ OINT TP PRN (16:00)
[2022-01-09] MEDS ORDERED: ONDANSETRON HCL/PF 4 MG/2 ML VIAL IVP PRN (16:00)
[2022-01-09] MEDS ORDERED: IV 1/2NS 1000 ML 1,000 ML IV PRN (16:00)
[2022-01-09] MEDS ORDERED: LEVOFLOXACIN 750 MG /D5W 150ML 150 ML IV ONE (16:20)
--- NOTE | 2022-01-09 16:47 | NUR ---
GOT BED 328-1
--- NOTE | 2022-01-09 16:47 | NUR ---
LAB CALLED SAMMY BURGESS MADE AWARE.
[2022-01-09 16:59] LABS: BILIRUBIN,DIRECT 0.1 mg/dL (0.0-0.2)
[2022-01-09] MEDS ORDERED: FLUTICASONE/SALMETEROL 1 DISK IH SCH (17:00)
[2022-01-09] MEDS ORDERED: POTASSIUM CHLORIDE 20 MEQ TAB.PRT.SR PO SCH (17:00)
--- NOTE | 2022-01-09 17:08 | NUR ---
REPORT GIVEN TO TOMÁS COMBS OF TELE UNIT
--- NOTE | 2022-01-09 17:13 | NUR ---
RN NOTES PATIENT TRANSFERRED TO UNIT AT ROOM 328-1 [facility]IA [facility], ACCOMPANIED BY 2 ER NURSES.
--- NOTE | 2022-01-09 17:51 | NUR ---
RN NOTES RN IMCU AT BEDSIDE FOR ECHO PROCEDURE.
[2022-01-09] MEDS: CARVEDILOL 6.25 MG TABLET PO SCH (17:54)
[2022-01-09] MEDS: LISINOPRIL (10MG) 10 MG TABLET PO SCH (17:55)
[2022-01-09] MEDS: GABAPENTIN 300 MG CAPSULE PO SCH (17:55)
--- NOTE | 2022-01-09 18:15 | NUR ---
RN NOTES PATIENT PROVIDED W/ BEDPAN; ABLE TO URINATE. ADVISED NOT TO STAND UP D/T RISK FOR FALL, VERBALIZED UNDERSTANDING.
--- NOTE | 2022-01-09 18:43 | NUR ---
RN NOTES ADMITTED THIS 71 Y.O. FEMALE FROM HOME W/ COMPLAINT OF GENERALIZED TREMORS, S/P GLF, DENIES HEAD INJURY W/ HX OF HTN AND CHF. A/O X4, VERBALLY RESPONSIVE, ABLE TO MAKE NEEDS KNOWN, NOT IN ACUTE DISTRESS. NOTED W/ MILD SHAKING ON BLE, MINIMAL ON BUE, UNABLE TO STAND. ATTACHED TO CLIENT SUPPORT COORDINATOR, READING OF SR, HR IN THE 70'S. IV LINE INTACT AND PATENT. NO SKIN ISSUE NOTED. SAFETY MEASURES IN PLACE; CALL LIGHT PLACED W/IN REACH FOR STAFF ASSISTANCE. WILL ENDORSE TO VOIP NETWORK ENGINEER RN FOR KORI.
--- NOTE | 2022-01-09 19:45 | NUR ---
HELPDESK TECHNICIAN NOTES PT A/O X4, VERBALLY RESPONSIVE, ABLE TO MAKE NEEDS KNOWN, NOT IN ACUTE DISTRESS. NOTED W/ MILD SHAKING ON BLE, PT REMINDED TO STAY IN BED SHE DOES NOT HAVE A STEADY GAIT AT THIS TIME. ATTACHED TO MAINTENANCE APPRENTICE, READING OF SR, HR IN THE 70'S. IV LINE INTACT AND PATENT. SAFETY MEASURES IN PLACE; CALL LIGHT PLACED W/IN REACH TABLE WITHING REACH. PT WAS HHUNGRY PROVIDED HER WITH SNACKS. EATING WELL. WILL CONTINUE TO MONITOR.
[2022-01-09 20:00] VITALS: BP 124/52
[2022-01-09] MEDS: MIRTAZAPINE 15 MG TABLET PO SCH (21:06)
--- NOTE | 2022-01-09 21:14 | NUR ---
DIRECTOR OF MANAGED SERVICES NOTES NOTED PT HAS AN ORDER FOR FLUIDS PRN PT REFUSED TO BE PLACED ON FLUIDS X3 RISK AND BENEFITS EXPLAINED X3 PT STATED " I HAVE HEART PROBLEMS TO MUICH FLUIDS IS NOT GOOD FOR ME I DONT WANT HE FLUIDS". WILL CONTINUE TO MONITOR.
--- NOTE | 2022-01-09 22:51 | NUR ---
INSIGHTS ANALYST NOTES PT TROPONIN LEVEL CONFIRMED WITH LAB HIGH REPORTED TO TREVER JEROME. PER UPLANDS DIVISION DIRECTOR CONTINUE TO MONITOR PT. NO NEW ORDERS AT THIS TIME. WILL CONTINUE TO MONITOR.
[2022-01-09 23:31] VITALS: BP 150/79
[2022-01-10] VITALS (7 sets, daily range): BP systolic 125–157; BP diastolic 79–108
[2022-01-10] MEDS: ALBUTEROL FS 2.5 MG/0.5 ML VIAL.NEB NEB SCH ×5 (01:30→20:25)
[2022-01-10 06:22] LABS: BASOPHILS # (AUTO) 0.2 K/uL (0.0-0.2); BASOPHILS % (AUTO) 1.5 % (0.0-2.0); EOSINOPHILS % (AUTO) 4.6 % (0.0-6.0); HEMATOCRIT 39 % (33-45); HEMOGLOBIN 12.6 g/dL (11.5-14.8); LYMPHOCYTES # (AUTO) 3.5 K/uL (0.8-4.8); LYMPHOCYTES % (AUTO) 29.4 % (20.0-44.0); MEAN CORPUSCULAR HGB CONC 32 g/dl (31.0-36.0); MEAN CORPUSCULAR VOLUME 99 fL (82-100); MONOCYTES # (AUTO) 1.6 K/uL (0.1-1.30); MONOCYTES % (AUTO) 13.2 % (2.0-12.0); NEUTROPHILS % (AUTO) 51.3 % (43.0-81.0); PLATELET COUNT (AUTO) 348 K/uL (150-450); RED BLOOD CELL COUNT(AUTO) 3.99 MIL/uL (4.0-5.2); WHITE BLOOD COUNT (AUTO) 11.8 K/uL (4.3-11.0)
--- NOTE | 2022-01-10 06:37 | NUR ---
FIRE DISPATCHER CLOSING NOTES PT A/O X4, VERBALLY RESPONSIVE, ABLE TO MAKE NEEDS KNOWN, NOT IN ACUTE DISTRESS. NOTED W/ MILD SHAKING ON BLE, PT REMINDED TO STAY IN BED SHE DOES NOT HAVE A STEADY GAIT AT THIS TIME. ATTACHED TO ADMINISTRATIVE SUPPORT ASSISTANT, READING OF SR, HR IN THE 60'S. IV LINE INTACT AND PATENT. SAFETY MEASURES IN PLACE; CALL LIGHT PLACED W/IN REACH TABLE WITHIN REACH. WILL ENDORSE CRAE TO DAY SHIFT NURSE.
[2022-01-10] MEDS: BUDESONIDE RESPULE INH 0.25 MG/2 ML AMPUL.NEB NEB SCH ×2 (07:30→20:25)
--- NOTE | 2022-01-10 08:03 | NUR ---
FURNITURE INSTALLER OPENING NOTE Patient in bed, awake. A/O x 4, able to make needs known. On room air, breathing evenly and unlabored. No SOB or s/s of distress noted. IV access on RAC #20G, intact and patent. On tele monitoring showing SR, HR at 72. Safety precautions in place: bed in low, locked position; siderails up x 2; call light within reach. Will continue to monitor.
[2022-01-10] MEDS: PANTOPRAZOLE 40 MG TABLET.DR PO SCH (08:14)
[2022-01-10] MEDS: RIVAROXABAN 15 MG TABLET PO SCH (08:15)
[2022-01-10] MEDS: FERROUS SULFATE (325 MG) 325 MG/TAB TABLET PO SCH (08:19)
[2022-01-10] MEDS: CITALOPRAM HYDROBROMIDE 20 MG TABLET PO SCH (08:20)
[2022-01-10] MEDS: CHOLECALCIFEROL 1,000 UNIT TABLET (VIT D3) PO SCH (08:20)
[2022-01-10] MEDS: GABAPENTIN 300 MG CAPSULE PO SCH ×2 (08:20→16:36)
[2022-01-10] MEDS: LISINOPRIL (10MG) 10 MG TABLET PO SCH ×2 (08:20→16:36)
[2022-01-10] MEDS: CARVEDILOL 6.25 MG TABLET PO SCH ×2 (08:21→16:37)
[2022-01-10 08:32] LABS: ALANINE AMINOTRANSFERASE 20 U/L (12-78); ALBUMIN 3.3 g/dL (3.4-5.0); ALKALINE PHOSPHATASE 72 U/L (46-116); ASPARTATE AMINOTRANSFERASE 18 U/L (15-37); BILIRUBIN,TOTAL 0.3 mg/dL (0.2-1.0); CALCIUM, SERUM 9.1 mg/dL (8.5-10.1); CARBON DIOXIDE 29 mmol/L (21-32); CHLORIDE 105 mmol/L (98-107); CREATININE 1.4 mg/dL (0.6-1.3); GLUCOSE 92 mg/dL (74-106); POTASSIUM 3.2 mmol/L (3.5-5.1); SODIUM SERUM 142 mmol/L (136-145); TOTAL PROTEIN, SERUM 6.6 g/dL (6.4-8.2); UREA NITROGEN, BLOOD 20 mg/dL (7-18)
[2022-01-10] MEDS ORDERED: PANTOPRAZOLE 40 MG VIAL IV SCH (09:00)
[2022-01-10 09:59] LABS: MAGNESIUM 1.9 mg/dL (1.8-2.4)
[2022-01-10] MEDS: POTASSIUM CHLORIDE 20 MEQ TAB.PRT.SR PO SCH ×2 (10:40→11:46)
--- NOTE | 2022-01-10 12:44 | NUR ---
RT Previous tx not given due to unaware pt being on service. 01/10/2022 1330 tx given
[2022-01-10] MEDS: ACETAMINOPHEN 325 MG TABLET PO PRN (18:38)
--- NOTE | 2022-01-10 18:55 | NUR ---
AUTOMATIC WHEEL LINE OPERATOR CLOSING NOTE Patient in bed, resting comfortably. A/O x 4, able to make needs known. Stable on room air, breathing evenly and unlabored. No SOB or s/s of distress noted. IV access on RAC #20G, intact and patent. On tele monitoring showing SR, HR at 68. Patient complained of pain on right ring finger due to gout flare up, PRN Tylenol given. Dr. Damian Boyd notified and gave new med orders. All needs attended to. Due meds given. Safety precautions maintained: bed in low, locked position; siderails up x 2; call light within reach. Will endorse to shift boss nurse for KORI.
[2022-01-10] MEDS: COLCHICINE 0.6 MG TABLET PO SCH (19:22)
--- NOTE | 2022-01-10 19:25 | NUR ---
COMBAT INFORMATION CENTER OFFICER OPENING NOTES RECEIVED PATIENT LAYING AWAKE IN BED. A/O X4. PATIENT WITH REGULAR AND UNLABORED BREATHING ON ROOM AIR TOLERATED WELL. NO SIGNS AND SYMPTOMS OF DISTRESS NOTED AT THIS TIME. NO COMPLAINS OF PAIN OR DISCOMFORT AT THIS TIME. PATIENT ON TELE MONITOR READING SR WITH BVB @ 70 BPM. IV ACCESS RAC G #20 SL. IV ACCESS PATENT AND INTACT. SAFETY PRECAUTIONS ENFORCED WITH BED LOCKED AND AT AT LOWEST POSITION. SIDERAILS UP X2. CALL LIGHT WITHIN REACH AT ALL TIMES WILL CONTINUE TO MONITOR PATIENT.
[2022-01-10] MEDS: MIRTAZAPINE 15 MG TABLET PO SCH (22:39)
[2022-01-11] VITALS: BP 116/77
[2022-01-11] MEDS: ALBUTEROL FS 2.5 MG/0.5 ML VIAL.NEB NEB SCH ×4 (02:06→21:27)
[2022-01-11 04:00] VITALS: BP 120/74
[2022-01-11] MEDS: ACETAMINOPHEN 325 MG TABLET PO PRN (06:03)
--- NOTE | 2022-01-11 06:43 | NUR ---
FIXED INTEREST DEALER CLOSING NOTES PATIENT STILL LAYING AWAKE IN BED. A/O X4. PATIENT WITH REGULAR AND UNLABORED BREATHING ON ROOM AIR TOLERATED WELL. NO SIGNS AND SYMPTOMS OF DISTRESS NOTED AT THIS TIME. NO COMPLAINS OF PAIN OR DISCOMFORT AT THIS TIME. PATIENT ON TELE MONITOR READING SR WITH BVB @ 90 BPM. IV ACCESS RAC G #20 INFUSING 1/2 NS @ 75 ML/HR. IV ACCESS PATENT AND INTACT. SAFETY PRECAUTIONS ENFORCED WITH BED LOCKED AND AT AT LOWEST POSITION. SIDERAILS UP X2. CALL LIGHT WITHIN REACH AT ALL TIMES WILL ENDORSE CONTINUITY OF CARE TO DAY SHIFT NURSE.
--- NOTE | 2022-01-11 07:19 | NUR ---
MS RN OPENING NOTES RECEIVED PATIENT IN BED AWAKE, ALERT AND ORIENTED X 4. PATIENT ON ROOM AIR WITH EQUAL AND UNLABORED, WITH REGULAR AND UNLABORED BREATHING ON ROOM AIR TOLERATED WELL. NO SIGNS AND SYMPTOMS OF DISTRESS NOTED AT THIS TIME. NO COMPLAINS OF PAIN OR DISCOMFORT AT THIS TIME. WITH IV ACCESS RIGHT AC G 20 WITH 1/2 NS AT 75 ML/HR, INFUSING WELL. SAFETY PRECAUTIONS ENFORCED WITH BED LOCKED AND AT LOWEST POSITION. CALL LIGHT WITHIN REACH AT ALL TIMES. WILL CONTINUE TO MONITOR PATIENT.
[2022-01-11 07:32] LABS: CALCIUM, SERUM 9.1 mg/dL (8.5-10.1); CREATININE 1.3 mg/dL (0.6-1.3); POTASSIUM 3.5 mmol/L (3.5-5.1)
[2022-01-11] MEDS: CHOLECALCIFEROL 1,000 UNIT TABLET (VIT D3) PO SCH (08:38)
[2022-01-11] MEDS: PANTOPRAZOLE 40 MG TABLET.DR PO SCH (08:38)
[2022-01-11] MEDS: LISINOPRIL (10MG) 10 MG TABLET PO SCH ×2 (08:38→17:01)
[2022-01-11] MEDS: COLCHICINE 0.6 MG TABLET PO SCH (08:39)
[2022-01-11] MEDS: predniSONE 20 MG TABLET PO SCH (08:39)
[2022-01-11] MEDS: FERROUS SULFATE (325 MG) 325 MG/TAB TABLET PO SCH (08:39)
[2022-01-11] MEDS: CITALOPRAM HYDROBROMIDE 20 MG TABLET PO SCH (08:39)
[2022-01-11] MEDS: CARVEDILOL 6.25 MG TABLET PO SCH ×2 (08:39→17:02)
[2022-01-11] MEDS: RIVAROXABAN 15 MG TABLET PO SCH (08:43)
[2022-01-11] MEDS: GABAPENTIN 300 MG CAPSULE PO SCH ×2 (08:44→17:00)
[2022-01-11] MEDS: BUDESONIDE RESPULE INH 0.25 MG/2 ML AMPUL.NEB NEB SCH ×2 (08:51→21:21)
[2022-01-11 10:02] VITALS: BP 165/105
--- NOTE | 2022-01-11 12:36 | NUR ---
MANAGER NURSING NOTE PATIENT SEEN BY DR. HERNANDEZ, IN STABLE CONDITION. WILL CONTINUE TO MONITOR PATIENT.
[2022-01-11] MEDS ORDERED: LEVOFLOXACIN 750 MG /D5W 150ML 750 MG in PREMIX 1 EA IV SCH (16:00)
[2022-01-11] MEDS: LORAZEPAM 0.5 MG TABLET PO PRN (18:00)
--- NOTE | 2022-01-11 18:45 | NUR ---
MS RN CLOSING NOTES PATIENT IN BED AWAKE, ALERT AND ORIENTED X 4. PATIENT ON ROOM AIR WITH EQUAL AND UNLABORED, WITH REGULAR AND UNLABORED BREATHING ON ROOM AIR TOLERATED WELL. NO SIGNS AND SYMPTOMS OF DISTRESS NOTED AT THIS TIME. NO COMPLAINS OF PAIN OR DISCOMFORT AT THIS TIME. WITH IV ACCESS RIGHT HAND G 22 ON SALINE LOCK, PATENT AND INTACT. SAFETY PRECAUTIONS ENFORCED WITH BED LOCKED AND AT LOWEST POSITION. CALL LIGHT WITHIN REACH AT ALL TIMES. WILL ENDORSE PATIENT FOR CONTINUITY OF CARE.
--- NOTE | 2022-01-11 19:35 | NUR ---
FINISHING SUPERVISOR PLASTIC SHEETS OPENING NOTES RECEIVED PATIENT LAYING AWAKE IN BED. A/O X4. PATIENT WITH REGULAR AND UNLABORED BREATHING ON ROOM AIR TOLERATED WELL. NO SIGNS AND SYMPTOMS OF DISTRESS NOTED AT THIS TIME. NO COMPLAINS OF PAIN OR DISCOMFORT AT THIS TIME. PATIENT ON TELE MONITOR READING SR WITH PVC @ 82 BPM. IV ACCESS R HAND G #22 SL. IV ACCESS PATENT AND INTACT. SAFETY PRECAUTIONS ENFORCED WITH BED LOCKED AND AT AT LOWEST POSITION. SIDERAILS UP X2. CALL LIGHT WITHIN REACH AT ALL TIMES WILL CONTINUE TO MONITOR PATIENT.
[2022-01-11 20:39] VITALS: BP 123/87
[2022-01-11] MEDS: MIRTAZAPINE 15 MG TABLET PO SCH ×2 (21:21→22:41)
[2022-01-12] VITALS (7 sets, daily range): BP systolic 122–162; BP diastolic 70–105
[2022-01-12] MEDS: ALBUTEROL FS 2.5 MG/0.5 ML VIAL.NEB NEB SCH ×4 (02:18→20:53)
--- NOTE | 2022-01-12 07:18 | NUR ---
BUSINESS DEAN CLOSING NOTES PATIENT STILL LAYING AWAKE IN BED. A/O X4. PATIENT WITH REGULAR AND UNLABORED BREATHING ON ROOM AIR TOLERATED WELL. NO SIGNS AND SYMPTOMS OF DISTRESS NOTED AT THIS TIME. NO COMPLAINS OF PAIN OR DISCOMFORT AT THIS TIME. PATIENT ON TELE MONITOR READING SR WITH @ 69 BPM. IV ACCESS R HAND G #22 SL. IV ACCESS PATENT AND INTACT. SAFETY PRECAUTIONS ENFORCED WITH BED LOCKED AND AT AT LOWEST POSITION. SIDERAILS UP X2. CALL LIGHT WITHIN REACH AT ALL TIMES WILL ENDORSE CONTINUITY OF CARE TO DAY SHIFT NURSE.
--- NOTE | 2022-01-12 07:23 | NUR ---
OTOLARYNGOLOGY PHYSICIAN OPENING NOTE RECEIVED PATIENT AWAKE IN BED, A/O X 4. NO S/SX OF ACUTE DISTRESS NOTED. NO SOB. NO C/O PAIN AT THIS TIME. BREATHING IS EVEN AND UNLABORED, TOLERATING WELL ON ROOM AIR. IV ACCESS RHAND#22 PATENT AND INTACT. PT ON EXTERNAL ICING MACHINE OPERATOR WITH READING SINUS RHYTHM 86. SAFETY MEASURES IN PLACE WITH BED LOCKED IN LOW POSITION WITH SIDE RAILS UP X 2. CALL LIGHT IS WITHIN REACH. WILL CONTINUE TO MONITOR PATIENT THROUGHOUT SHIFT.
[2022-01-12] MEDS: PANTOPRAZOLE 40 MG TABLET.DR PO SCH (07:48)
[2022-01-12] MEDS: CARVEDILOL 6.25 MG TABLET PO SCH ×2 (08:07→16:03)
[2022-01-12] MEDS: CITALOPRAM HYDROBROMIDE 20 MG TABLET PO SCH (08:07)
[2022-01-12] MEDS: CHOLECALCIFEROL 1,000 UNIT TABLET (VIT D3) PO SCH (08:07)
[2022-01-12] MEDS: predniSONE 20 MG TABLET PO SCH (08:08)
[2022-01-12] MEDS: COLCHICINE 0.6 MG TABLET PO SCH (08:08)
[2022-01-12] MEDS: GABAPENTIN 300 MG CAPSULE PO SCH ×3 (08:08→16:15)
[2022-01-12] MEDS: FERROUS SULFATE (325 MG) 325 MG/TAB TABLET PO SCH (08:08)
[2022-01-12] MEDS: LISINOPRIL (10MG) 10 MG TABLET PO SCH ×2 (08:09→16:02)
[2022-01-12] MEDS: RIVAROXABAN 15 MG TABLET PO SCH (08:11)
[2022-01-12] MEDS: BUDESONIDE RESPULE INH 0.25 MG/2 ML AMPUL.NEB NEB SCH ×2 (08:27→20:53)
[2022-01-12] MEDS: LORAZEPAM 0.5 MG TABLET PO PRN ×2 (09:07→21:15)
--- NOTE | 2022-01-12 18:58 | NUR ---
COSMETIC SALES CONSULTANT CLOSING NOTES PATIENT REMAINS AWAKE IN BED. A/O X4. NO SOB. NO S/SX OF ACUTE DISTRESS NOTED. NO C/O PAIN. PATIENT ON TELE MONITOR READING SR WITH @ 70'S. IV ACCESS R HAND G #22 SL. IV ACCESS PATENT AND INTACT. SAFETY PRECAUTIONS MAINTAINED WITH BED LOCKED AND AT AT LOWEST POSITION. SIDE RAILS UP X2. CALL LIGHT WITHIN REACH AT ALL TIMES. WILL ENDORSE CONTINUITY OF CARE TO ONCOMING SHIFT.
--- NOTE | 2022-01-12 19:50 | NUR ---
RN OPENING NOTES Patient is awake, A&Ox4. No signs of distress. Patient states she is feeling good at this time, no needs. R hand #22G IV flushed and patent. Will continue to monitor patient.
[2022-01-12] MEDS: MIRTAZAPINE 15 MG TABLET PO SCH (22:03)
[2022-01-13] VITALS: BP_SYST 144; BP_DIAS 95; BP_DIAS 96
[2022-01-13] MEDS: ALBUTEROL FS 2.5 MG/0.5 ML VIAL.NEB NEB SCH ×4 (01:30→20:36)
[2022-01-13 04:00] VITALS: BP_SYST 130; BP_SYST 152; BP_DIAS 66; BP_DIAS 90
--- NOTE | 2022-01-13 06:12 | NUR ---
RN CLOSING NOTES Patient is still A&Ox4, no overnight events. Patient verbalizes that she feels fine and felt fine overnight. Ambulation is steady, patient seems stronger than admission assessment. R hand #22G still intact and patent. SR in 60s and 70s overnight. BP never going above 160. Stable.
[2022-01-13 08:00] VITALS: BP 157/104
[2022-01-13] MEDS: BUDESONIDE RESPULE INH 0.25 MG/2 ML AMPUL.NEB NEB SCH ×2 (08:03→20:36)
--- NOTE | 2022-01-13 08:15 | NUR ---
RN OPENING NOTES PATIENT AWAKE, A/O X4. NO S/S OF PAIN NOTED AT THIS TIME. PATIENT ON ROOM AIR, NO DISTRESS OR SHORTNESS OF BREATH. IV ACCESS R HAND #22G INTACT, PATENT AND FLUSHING WELL. FALL AND SAFETY MEASURES IN PLACE, BED ALARM ON, BED IN LOW AND LOCK POSITION, CALL LIGHT AND TABLE WITHIN EASY REACH, SIDE RAILS UP X2. WILL CONTINUE TO MONITOR.
[2022-01-13] MEDS: CARVEDILOL 6.25 MG TABLET PO SCH ×2 (09:12→17:08)
[2022-01-13] MEDS: LISINOPRIL (10MG) 10 MG TABLET PO SCH ×2 (09:12→17:09)
[2022-01-13] MEDS: RIVAROXABAN 15 MG TABLET PO SCH (09:14)
[2022-01-13] MEDS: predniSONE 20 MG TABLET PO SCH (09:14)
[2022-01-13] MEDS: CHOLECALCIFEROL 1,000 UNIT TABLET (VIT D3) PO SCH (09:14)
[2022-01-13] MEDS: CITALOPRAM HYDROBROMIDE 20 MG TABLET PO SCH (09:14)
[2022-01-13] MEDS: FERROUS SULFATE (325 MG) 325 MG/TAB TABLET PO SCH (09:14)
[2022-01-13] MEDS: GABAPENTIN 300 MG CAPSULE PO SCH ×2 (09:15→17:08)
[2022-01-13] MEDS: PANTOPRAZOLE 40 MG TABLET.DR PO SCH (09:15)
[2022-01-13] MEDS: COLCHICINE 0.6 MG TABLET PO SCH (09:15)
[2022-01-13] MEDS: LORAZEPAM 0.5 MG TABLET PO PRN (12:11)
[2022-01-13 16:00] VITALS: BP 128/101
[2022-01-13] MEDS: AMLODIPINE BESYLATE 10 MG TABLET PO SCH (17:09)
--- NOTE | 2022-01-13 19:10 | NUR ---
RN CLOSING NOTE PATIENT AWAKE, A/O X4. NO S/S OF PAIN NOTED AT THIS TIME. PATIENT ON ROOM AIR, NO DISTRESS OR SHORTNESS OF BREATH. IV ACCESS R HAND #22G INTACT, PATENT AND FLUSHING WELL. PATIENT HAVE AN EXTERNAL INTAKE MAN CURRENT READING OF SR AND HR OF 78. SAFETY MEASURES IN PLACE, BED ALARM ON, BED IN LOW AND LOCK POSITION, CALL LIGHT AND TABLE WITHIN EASY REACH, SIDE RAILS UP X2. WILL ENDORSE TO OPTICAL ASSISTANT.
--- NOTE | 2022-01-13 19:45 | NUR ---
RN OPENING NOTES Patient is A&Ox4. States she feels good and is less anxious about her blood pressure as it is being better controlled today. No signs of distress, denies any needs at this time. Patient is ambulatory and steady. IV seen to be out of place. Removed old IV and inserted new to L hand #24G but patient does not want to continue on fluids at this time. Currently SR on the monitor. Will continue to monitor.
[2022-01-13 20:00] VITALS: BP 114/84
[2022-01-13] MEDS: MIRTAZAPINE 15 MG TABLET PO SCH (21:17)
[2022-01-14] VITALS: BP 129/94
[2022-01-14] MEDS: ALBUTEROL FS 2.5 MG/0.5 ML VIAL.NEB NEB SCH ×3 (01:30→14:10)
[2022-01-14 04:00] VITALS: BP 147/99
--- NOTE | 2022-01-14 06:20 | NUR ---
RN CLOSING NOTES Patient is A&Ox4. No overnight events. 8pm BP 114/84, midnight BP 129/94, 4am BP 147/99. Better controlled than days prior. Patient reports feeling fine, no symptoms. On tele monitor patient has been SR with PVCs 70s and 80s. L wrist #24G intact and patent still. Currently sleeping but easy to wake. No signs of distress.
[2022-01-14 08:00] VITALS: BP 168/112
[2022-01-14] MEDS: BUDESONIDE RESPULE INH 0.25 MG/2 ML AMPUL.NEB NEB SCH (08:29)
[2022-01-14] MEDS: GABAPENTIN 300 MG CAPSULE PO SCH ×2 (08:45→17:00)
[2022-01-14] MEDS: FERROUS SULFATE (325 MG) 325 MG/TAB TABLET PO SCH (08:45)
[2022-01-14] MEDS: CHOLECALCIFEROL 1,000 UNIT TABLET (VIT D3) PO SCH (08:45)
[2022-01-14] MEDS: PANTOPRAZOLE 40 MG TABLET.DR PO SCH (08:45)
[2022-01-14] MEDS: predniSONE 20 MG TABLET PO SCH (08:46)
[2022-01-14] MEDS: COLCHICINE 0.6 MG TABLET PO SCH (08:46)
[2022-01-14] MEDS: CARVEDILOL 6.25 MG TABLET PO SCH ×2 (08:48→17:00)
[2022-01-14] MEDS: LISINOPRIL (10MG) 10 MG TABLET PO SCH ×2 (08:48→17:00)
[2022-01-14] MEDS: CITALOPRAM HYDROBROMIDE 20 MG TABLET PO SCH (08:48)
[2022-01-14] MEDS: AMLODIPINE BESYLATE 10 MG TABLET PO SCH (09:00)
[2022-01-14] MEDS ORDERED: hydrALAZINE HCL 25 MG TABLET PO SCH (13:00)
[2022-01-14] MEDS ORDERED: PRED20TA PO (13:31)
[2022-01-14] MEDS ORDERED: OLME40TA12 PO (13:31)
[2022-01-14] MEDS ORDERED: HYDR-4076 PO (13:31)
[2022-01-14] MEDS ORDERED: GABA300C PO (13:31)
[2022-01-14] MEDS ORDERED: AMLO-213 PO (13:31)
[2022-01-14] MEDS ORDERED: CARV6.252 PO (13:31)
[2022-01-14] MEDS: RIVAROXABAN 15 MG TABLET PO SCH (14:48)
[2022-01-14 16:06] VITALS: BP 117/59
[2022-01-14 17:00] VITALS: BP 117/80
--- NOTE | 2022-01-14 17:20 | NUR ---
received pt. in am alert and oriented x4.no complaints.bp elevated. has med orders for bp.received dc call from case mgmt.pt. requests amb. transport.hep lock,tele dc'd.pt. med compliant. ambulance here,given report.taken to her house via amb.
== END 2022-01-14 17:30 | disposition home or self-care (01) | DRG 73 ==
LOC: ER 12:03 → TRANSITION 16:36 → TELE 16:55
PROVIDERS: ATTEND Nurse Practitioner Acute Care
DX: G90.8 Other disorders of autonomic nervous system (principal); I21.4 Non-ST elevation (NSTEMI) myocardial infarction; N17.0 Acute kidney failure with tubular necrosis; I50.41 Acute combined systolic (congestive) and diastolic (congestive) heart failure; I13.0 Hypertensive heart and chronic kidney disease with heart failure and stage 1 through stage 4 chronic kidney disease, or unspecified chronic kidney disease; E87.2 Acidosis; I48.20 Chronic atrial fibrillation, unspecified; D68.9 Coagulation defect, unspecified; D68.69 Other thrombophilia; M62.82 Rhabdomyolysis; I42.9 Cardiomyopathy, unspecified; R53.1 Weakness; N18.30 Chronic kidney disease, stage 3 unspecified; Z20.822 Contact with and (suspected) exposure to COVID-19; E87.6 Hypokalemia; E78.5 Hyperlipidemia, unspecified; F41.9 Anxiety disorder, unspecified; F32.A Depression, unspecified; Z79.01 Long term (current) use of anticoagulants; Z85.528 Personal history of other malignant neoplasm of kidney; Z90.10 Acquired absence of unspecified breast and nipple; Z90.81 Acquired absence of spleen; Z96.642 Presence of left artificial hip joint; Z85.3 Personal history of malignant neoplasm of breast; Z90.5 Acquired absence of kidney; R25.1 Tremor, unspecified; M19.09 Primary osteoarthritis, other specified site; Z91.81 History of falling
CPT/HCPCS: 36415; 70450-TC; 71045-TC; 71046; 80048-TC; 80076-TC; 83605-TC; 83735-TC; 83880; 84100-TC; 84484-TC; 85025-TC; 85027-TC; 85730-TC; 87040-TC; 87081-TC; 93307-TC; 94799-TC; 97116-TC; 97530-TC; A4216; C9803; G0378; J1956; J2060; J3490

== ENCOUNTER 2023-06-23 13:53 | Emergency (ER) | payer MEDICARE ==
[~2023-06-23] VITALS: Ht 162.6 cm; Wt 68.0 kg
[~2023-06-23 13:53] MED LIST changes: +AMLO-213 PO; +GABA300C PO; -GABA600T12 PO; +HYDR-4076 PO; +OLME40TA12 PO; -OXYC1TAB8 PO; +PRED20TA PO
[2023-06-23] MEDS ORDERED: IBUPROFEN 600 MG TABLET ONE (14:55)
[2023-06-23] MEDS ORDERED: IBUPROFEN 600 MG TABLET PO ONE (15:00)
[2023-06-23 18:21] VITALS: BP 132/72; TEMP 98; O2SAT 100
== END 2023-06-23 18:23 | disposition home or self-care (01) ==
LOC: ER 14:03
DX: S82.831A Other fracture of upper and lower end of right fibula, initial encounter for closed fracture (principal); I11.0 Hypertensive heart disease with heart failure; I50.9 Heart failure, unspecified; I48.91 Unspecified atrial fibrillation; Z85.3 Personal history of malignant neoplasm of breast; Z60.2 Problems related to living alone; Z79.899 Other long term (current) drug therapy; V03.90XA Pedestrian on foot injured in collision with car, pick-up truck or van, unspecified whether traffic or nontraffic accident, initial encounter; Y93.89 Activity, other specified; Y92.89 Other specified places as the place of occurrence of the external cause; Y99.8 Other external cause status
CPT/HCPCS: 73610-TC; 73630-TC

== ENCOUNTER 2025-04-27 15:35 | Inpatient (IN) | payer MEDICARE ==
[~2025-04-27] VITALS: Ht 162.6 cm; Wt 59.5 kg
[2025-04-27] MEDS ORDERED: IPRATROPIUM NEB FS 0.5 MG/2.5 ML AMPUL.NEB ONE (15:58)
[2025-04-27] MEDS ORDERED: ALBUTEROL FS 2.5 MG/3 ML VIAL.NEB ONE (15:58)
[2025-04-27 15:59] VITALS: O2SAT 95
[2025-04-27] MEDS: ALBUTEROL FS 2.5 MG/3 ML VIAL.NEB NEB ONE (15:59)
[2025-04-27] MEDS: IPRATROPIUM NEB FS 0.5 MG/2.5 ML AMPUL.NEB NEB ONE (15:59)
[2025-04-27] MEDS: methylPREDNISolone SOD SUCC 125 MG/2ML VIAL IV ONE (16:00)
[2025-04-27 16:04] LABS: BASOPHILS # (AUTO) 0.1 K/uL (0.0-0.2); BASOPHILS % (AUTO) 0.6 % (0.0-2.0); EOSINOPHILS # (AUTO) 0.1 K/uL (0.0-0.7); EOSINOPHILS % (AUTO) 0.4 % (0.0-6.0); HEMATOCRIT 45 % (33-45); HEMOGLOBIN 14.9 g/dL (11.5-14.8); LYMPHOCYTES # (AUTO) 1.3 K/uL (0.8-4.8); LYMPHOCYTES % (AUTO) 10.1 % (20.0-44.0); MEAN CORPUSCULAR HEMOGLOBIN 33 PG (26.0-33.0); MEAN CORPUSCULAR HGB CONC 33 g/dl (31.0-36.0); MEAN CORPUSCULAR VOLUME 102 fL (82-100); NEUTROPHILS # (AUTO) 10.4 K/uL (1.8-8.9); NEUTROPHILS % (AUTO) 80.9 % (43.0-81.0); PLATELET COUNT (AUTO) 416 K/uL (150-450); RED BLOOD CELL COUNT(AUTO) 4.45 MIL/uL (4.0-5.2); RED CELL DISTRIBUTION WIDTH 20.4 % (11.5-15.0); WHITE BLOOD COUNT (AUTO) 12.9 K/uL (4.3-11.0)
[2025-04-27] MEDS ORDERED: methylPREDNISolone SOD SUCC 125 MG/2ML VIAL ONE (16:06)
[2025-04-27 16:16] VITALS: O2SAT 98
[2025-04-27 16:16] LABS: INR 1.69 (0.91-1.10); PARTIAL THROMBOPLASTIN TIME 37.6 SEC (24.3-34.3)
[2025-04-27 16:22] LABS: LACTIC ACID 2.7 mmol/L (0.4-2.0)
[2025-04-27 16:26] LABS: CALCIUM, SERUM 9.1 mg/dL (8.5-10.1); CARBON DIOXIDE 28 mmol/L (21-32); CHLORIDE 98 mmol/L (98-107); CREATININE 3.1 mg/dL (0.6-1.3); GLUCOSE 163 mg/dL (74-106); POTASSIUM 4.5 mmol/L (3.5-5.1); SODIUM SERUM 134 mmol/L (136-145); UREA NITROGEN, BLOOD 46 mg/dL (7-18)
[2025-04-27 16:30] LABS: ALANINE AMINOTRANSFERASE 37 U/L (12-78); ALBUMIN 3.5 g/dL (3.4-5.0); ALKALINE PHOSPHATASE 61 U/L (46-116); ASPARTATE AMINOTRANSFERASE 31 U/L (15-37); BILIRUBIN,DIRECT 0.3 mg/dL (0.0-0.2); BILIRUBIN,TOTAL 1.2 mg/dL (0.2-1.0); TOTAL PROTEIN, SERUM 7.5 g/dL (6.4-8.2)
[2025-04-27] MEDS: CEFTRIAXONE 1 G in IV D5W 50 ML IV ONE (16:30)
[2025-04-27] MEDS: FUROSEMIDE 20 MG/2 ML VIAL IV ONE (17:25)
[2025-04-27] MEDS ORDERED: LEVA0.31 IH (17:42)
[2025-04-27] MEDS ORDERED: FLUO20TA28 PO (17:42)
[2025-04-27] MEDS ORDERED: NIAC-47 PO (17:42)
[2025-04-27] MEDS ORDERED: EMPA10TA PO (17:42)
[2025-04-27] MEDS ORDERED: NALO4SPR NS (17:42)
[2025-04-27] MEDS ORDERED: HYDR-4076 PO (17:42)
[2025-04-27] MEDS ORDERED: ATOV750O4 PO (17:42)
[2025-04-27] MEDS ORDERED: ATOR40TA PO (17:42)
[2025-04-27] MEDS ORDERED: CARV6.25 PO (17:42)
[2025-04-27] MEDS ORDERED: AMIO200T5 PO (17:42)
[2025-04-27] MEDS ORDERED: PRED10TA PO (17:42)
[2025-04-27] MEDS ORDERED: CYCL30DR EACHEYE (17:42)
[2025-04-27] MEDS ORDERED: FAMO20TA80 PO (17:42)
[2025-04-27] MEDS ORDERED: FURO-145 PO (17:42)
[2025-04-27] MEDS ORDERED: BUSP10TA35 PO (17:42)
[2025-04-27] MEDS ORDERED: BISA5TAB10 PO (17:42)
[2025-04-27] MEDS ORDERED: METH-647 PO (17:42)
[2025-04-27] MEDS ORDERED: ALBU18HF2 IH (17:42)
[2025-04-27] MEDS ORDERED: FLUT16SP16 BNOSTRILS (17:42)
[2025-04-27] MEDS ORDERED: ALPR0.5T PO (17:42)
[2025-04-27] MEDS ORDERED: CALC-1143 PO (17:42)
[2025-04-27] MEDS ORDERED: DOCU100T2 PO (17:42)
[2025-04-27] MEDS ORDERED: [UNRECOGNIZED DRUG - OTHER] PO (17:42)
[2025-04-27] MEDS ORDERED: SACU1TAB PO (17:42)
[2025-04-27] MEDS ORDERED: ONDA4TAB11 PO (17:42)
[2025-04-27] MEDS ORDERED: ACETAMINOPHEN 325 MG TABLET PO PRN ×2 (18:30→19:15)
[2025-04-27] MEDS ORDERED: IPRATROPIUM NEB FS 0.5 MG/2.5 ML AMPUL.NEB NEB PRN ×2 (18:30→19:15)
[2025-04-27] MEDS ORDERED: Z GUARD REMEDY 4 OZ OINT TP PRN ×2 (18:30→19:15)
[2025-04-27] MEDS ORDERED: ALBUTEROL FS 2.5 MG/0.5 ML VIAL.NEB NEB PRN ×2 (18:30→19:15)
[2025-04-27] MEDS ORDERED: ONDANSETRON HCL/PF 4 MG/2 ML VIAL IVP PRN ×2 (18:30→19:15)
[2025-04-27] MEDS ORDERED: MAG HYDROX/AL HYDROX/SIMETH 30 ML UDC PO PRN ×2 (18:30→19:15)
[2025-04-27] MEDS ORDERED: MAGNESIUM HYDROXIDE 30 ML UDC PO PRN (18:30)
[2025-04-27 20:00] VITALS: BP 94/66; TEMP 97.7; O2SAT 96
[2025-04-27] MEDS: FUROSEMIDE 40 MG/4 ML VIAL IV SCH (21:00)
[2025-04-27] MEDS ORDERED: methylPREDNISolone SOD SUCC 125 MG/2ML VIAL IV SCH (21:00)
[2025-04-27] MEDS ORDERED: FUROSEMIDE 40 MG/4 ML VIAL IV SCH (21:00)
[2025-04-27] MEDS: methylPREDNISolone SOD SUCC 125 MG/2ML VIAL IV SCH (22:30)
[2025-04-28] VITALS (7 sets, daily range): BP systolic 99–128; BP diastolic 60–88; TEMP 97.5–98.4; O2SAT 95–98
[2025-04-28 08:35] LABS: APPEARANCE,URINE CLEAR (CLEAR); BILIRUBIN,URINE NEGATIVE (NEGATIVE); BLOOD, URINE NEGATIVE Ery/uL (NEGATIVE); COLOR,URINE YELLOW (YELLOW); KETONES,URINE NEGATIVE (NEGATIVE); LEUKOCYTE ESTERASE ,URINE TRACE (NEGATIVE); NITRITE, URINE NEGATIVE (NEGATIVE); PH,URINE 6.5 (5.0-8.0); PROTEIN,URINE TRACE mg/dl (NEGATIVE); UGLUCOSE 1+ mg/dL (NEGATIVE); UROBILINOGEN,URINE 0.2 EU/dL (0.2)
[2025-04-28 09:41] LABS: ADD URINE CULTURE NO; BACTERIA,URINE Rare /HPF (None Seen); RBC,URINE 0-2 /HPF (0-2); SQUAMOUS EPITHELIAL CELL,UR 0-2 /HPF (None Seen); WBC,URINE 0-2 /HPF (0-3)
[2025-04-28 11:24] LABS: ABG BASE EXCESS 3.3 mmol/L (-2.0-3.0); ABG PCO2 25.8 mmHg (32.0-45.0); ABG PH 7.581 (7.350-7.450); ABG PO2 77.9 mmHg (83.0-108.0); ABG TOTAL HEMOGLOBIN 14.9 G/dL (12.0-16.0); COHb 0.4 % (0.5-1.5); MetHb 0.2 % (0.0-1.5); O2Hb 95.4 % (94.0-97.0); SITE, ABG LEFT RADIAL
[2025-04-28] MEDS: methylPREDNISolone SOD SUCC 40 MG/ML VIAL IV SCH (12:55)
[2025-04-29 04:00] VITALS: BP 130/84; TEMP 98.1; O2SAT 98
[2025-04-29 07:25] LABS: BASOPHILS % (AUTO) 0.1 % (0.0-2.0); HEMATOCRIT 46 % (33-45); HEMOGLOBIN 15.4 g/dL (11.5-14.8); LYMPHOCYTES # (AUTO) 0.5 K/uL (0.8-4.8); LYMPHOCYTES % (AUTO) 3.3 % (20.0-44.0); MEAN CORPUSCULAR HEMOGLOBIN 34 PG (26.0-33.0); MEAN CORPUSCULAR HGB CONC 34 g/dl (31.0-36.0); MEAN CORPUSCULAR VOLUME 102 fL (82-100); MONOCYTES # (AUTO) 0.4 K/uL (0.1-1.30); MONOCYTES % (AUTO) 2.5 % (2.0-12.0); NEUTROPHILS # (AUTO) 13.7 K/uL (1.8-8.9); NEUTROPHILS % (AUTO) 94.1 % (43.0-81.0); PLATELET COUNT (AUTO) 360 K/uL (150-450); RED BLOOD CELL COUNT(AUTO) 4.49 MIL/uL (4.0-5.2); RED CELL DISTRIBUTION WIDTH 20.5 % (11.5-15.0); WHITE BLOOD COUNT (AUTO) 14.6 K/uL (4.3-11.0)
[2025-04-29 08:00] VITALS: BP 132/88; TEMP 97.8; O2SAT 99
[2025-04-29 10:40] LABS: ALBUMIN 3.5 g/dL (3.4-5.0); BILIRUBIN,TOTAL 0.8 mg/dL (0.2-1.0); CALCIUM, SERUM 8.3 mg/dL (8.5-10.1); CREATININE 2.4 mg/dL (0.6-1.3); MAGNESIUM 2.2 mg/dL (1.8-2.4); PHOSPHORUS 3.5 mg/dL (2.5-4.9); TOTAL PROTEIN, SERUM 7.3 g/dL (6.4-8.2)
[2025-04-29 10:50] LABS: POTASSIUM 2.8 mmol/L (3.5-5.1)
[2025-04-29 12:00] VITALS: BP 115/72; TEMP 98.3; O2SAT 97
[2025-04-29] MEDS: POTASSIUM CHLORIDE 20 MEQ TAB.PRT.SR PO ONE (12:15)
[2025-04-29] MEDS: POTASSIUM CL. PREMIX PERIPHER. 50 ML IV SCH (12:20)
[2025-04-29] MEDS ORDERED: BISACODYL (5 MG) 5 MG TABLET.DR PO PRN (13:00)
[2025-04-29] MEDS ORDERED: METHOCARBAMOL (500MG) 500 MG TABLET PO PRN (13:00)
[2025-04-29] MEDS: FLUOXETINE HCL 20 MG CAPSULE PO SCH (13:00)
[2025-04-29] MEDS: busPIRone 5 MG TABLET PO SCH (13:31)
[2025-04-29] MEDS: ALPRAZOLAM 0.5 MG TABLET PO PRN (13:31)
[2025-04-29] MEDS: RIVAROXABAN 10 MG TABLET PO SCH (13:41)
[2025-04-29 16:00] VITALS: BP 112/72; TEMP 98.1; O2SAT 96
[2025-04-29] MEDS: FLUTICASONE PROPIONATE 16 GM BOTTLE NS SCH (16:19)
[2025-04-29 20:39] VITALS: BP 112/63; TEMP 97.3; O2SAT 95
[2025-04-30 00:32] VITALS: BP 112/63; TEMP 98.1; O2SAT 95
[2025-04-30 07:09] LABS: HEMATOCRIT 46 % (33-45); HEMOGLOBIN 15.4 g/dL (11.5-14.8); LYMPHOCYTES # (AUTO) 0.4 K/uL (0.8-4.8); LYMPHOCYTES % (AUTO) 3.1 % (20.0-44.0); MEAN CORPUSCULAR HEMOGLOBIN 34 PG (26.0-33.0); MEAN CORPUSCULAR HGB CONC 33 g/dl (31.0-36.0); MEAN CORPUSCULAR VOLUME 101 fL (82-100); MONOCYTES # (AUTO) 0.4 K/uL (0.1-1.30); MONOCYTES % (AUTO) 2.9 % (2.0-12.0); NEUTROPHILS # (AUTO) 13.5 K/uL (1.8-8.9); PLATELET COUNT (AUTO) 328 K/uL (150-450); RED BLOOD CELL COUNT(AUTO) 4.56 MIL/uL (4.0-5.2); RED CELL DISTRIBUTION WIDTH 19.9 % (11.5-15.0); WHITE BLOOD COUNT (AUTO) 14.3 K/uL (4.3-11.0)
[2025-04-30 07:28] LABS: ALBUMIN 3.2 g/dL (3.4-5.0); BILIRUBIN,TOTAL 0.7 mg/dL (0.2-1.0); CALCIUM, SERUM 8.2 mg/dL (8.5-10.1); MAGNESIUM 2.5 mg/dL (1.8-2.4); PHOSPHORUS 3.2 mg/dL (2.5-4.9); POTASSIUM 3.5 mmol/L (3.5-5.1); TOTAL PROTEIN, SERUM 6.7 g/dL (6.4-8.2)
[2025-04-30 08:00] VITALS: BP 137/85; TEMP 98.4; O2SAT 99
[2025-04-30] MEDS: ATORVASTATIN 40 MG TABLET PO SCH (09:05)
[2025-04-30] MEDS: CALCIUM CARBONATE 500 MG TAB.CHEW PO SCH (09:05)
[2025-04-30] MEDS: EMPAGLIFLOZIN 10 MG TABLET PO SCH (09:12)
[2025-04-30] MEDS: CHOLECALCIFEROL 1,000 UNIT TABLET (VIT D3) PO SCH (09:12)
[2025-04-30] MEDS: AMIODARONE HCL 200 MG TABLET PO SCH (09:18)
[2025-04-30 12:00] VITALS: BP 116/66; TEMP 98.1; O2SAT 96
[2025-04-30] MEDS: MAGNESIUM HYDROXIDE 30 ML UDC PO PRN (13:31)
[2025-05-01 01:10] LABS: PTH, INTACT 623 pg/mL (15-65)
[2025-05-01] MEDS ORDERED: FERROUS SULFATE (325 MG) 325 MG/TAB TABLET PO SCH (09:00)
[2025-05-01 16:10] LABS: *SPE A/G RATIO 1.1 (0.7-1.7); *SPE ALBUMIN 3.3 g/dL (2.9-4.4); *SPE ALPHA-1-GLOBULIN 0.3 g/dL (0.0-0.4); *SPE ALPHA-2-GLOBULIN 1.1 g/dL (0.4-1.0); *SPE GLOBULIN, TOTAL 2.9 g/dL (2.2-3.9); *SPE M-SPIKE Not Observed g/dL (Not Observed); *SPE PROTEIN TOTAL 6.2 g/dL (6.0-8.5); *SPEGAMMA GLOBULIN 0.5 g/dL (0.4-1.8)
== END 2025-04-30 16:50 | disposition home health service (06) | DRG 189 ==
LOC: ER 15:36 → TELE 19:51 → MED 04-30 13:50
DX: J96.21 Acute and chronic respiratory failure with hypoxia (principal); J44.1 Chronic obstructive pulmonary disease with (acute) exacerbation; I48.20 Chronic atrial fibrillation, unspecified; I13.0 Hypertensive heart and chronic kidney disease with heart failure and stage 1 through stage 4 chronic kidney disease, or unspecified chronic kidney disease; I5A Non-ischemic myocardial injury (non-traumatic); C79.51 Secondary malignant neoplasm of bone; E87.6 Hypokalemia; Z99.81 Dependence on supplemental oxygen; I50.9 Heart failure, unspecified; E78.5 Hyperlipidemia, unspecified; N18.9 Chronic kidney disease, unspecified; Z79.01 Long term (current) use of anticoagulants; Z87.891 Personal history of nicotine dependence; Z90.81 Acquired absence of spleen; Z90.5 Acquired absence of kidney; Z85.528 Personal history of other malignant neoplasm of kidney; Z85.3 Personal history of malignant neoplasm of breast; M19.90 Unspecified osteoarthritis, unspecified site; Z96.642 Presence of left artificial hip joint; R91.8 Other nonspecific abnormal finding of lung field
CPT/HCPCS: 36415; 71045-TC; 71250-TC; 76770-TC; 80048-TC; 80053-TC; 80076-TC; 81001; 82550-TC; 82803-TC; 83605-TC; 83735-TC; 83880; 83970; 84100-TC; 84155; 84165; 84484-TC; 85025-TC; 85730-TC; 87040-TC; 93307-TC; 93970-TC; 97110-TC; 97116-TC; 97530-TC; A4223; G0378; J0696; J1938; J2919; J3480; J7050; J7060

== ENCOUNTER 2025-05-07 10:30 | Inpatient (IN) | payer MEDICARE ==
[~2025-05-07] VITALS: Ht 162.6 cm; Wt 59.9 kg
[~2025-05-07 10:30] MED LIST changes: +ALBU18HF2 IH; +ALPR0.5T PO; +AMIO200T5 PO; -AMLO-213 PO; +ATOR40TA PO; +ATOV750O4 PO; +BISA5TAB10 PO; +BUSP10TA35 PO; +CALC-1143 PO; +CARV6.25 PO; -CARV6.252 PO; -CITA20TA16 PO; +CYCL30DR EACHEYE; +DOCU100T2 PO; +EMPA10TA PO; +FAMO20TA80 PO; +FLUO20TA28 PO; +FLUT16SP16 BNOSTRILS; -FLUT1DIS3 INH; +FURO-145 PO; -GABA300C PO; +LEVA0.31 IH; +METH-647 PO; -MIRT45TA83 PO; +NALO4SPR NS; +NIAC-47 PO; -OLME40TA12 PO; +ONDA4TAB11 PO; -PANT40TA2 PO; -POTA20TA83 PO; +PRED10TA PO; -PRED20TA PO; +SACU1TAB PO; -TORS20TA3 PO; +[UNRECOGNIZED DRUG - OTHER] PO
[2025-05-07 11:08] LABS: PLATELET COUNT (AUTO) 206 K/uL (150-450); RED BLOOD CELL COUNT(AUTO) 4.06 MIL/uL (4.0-5.2); RED CELL DISTRIBUTION WIDTH 19.8 % (11.5-15.0); WHITE BLOOD COUNT (AUTO) 9.7 K/uL (4.3-11.0)
[2025-05-07 11:16] LABS: ABG BASE EXCESS 7.4 mmol/L (-2.0-3.0); ABG OXYGEN SATURATION 95.0 % (94.0-98.0); ABG PCO2 35.3 mmHg (32.0-45.0); ABG PH 7.547 (7.350-7.450); ABG PO2 74.3 mmHg (83.0-108.0); ABG TOTAL HEMOGLOBIN 13.6 G/dL (12.0-16.0); FLOW, BLOOD GAS 2.00 L/min (0.00-30.00); FRACTIONATED INSPIRED OXYGEN 28.0 %; SITE, ABG RIGHT RADIAL
[2025-05-07 11:27] LABS: CALCIUM, SERUM 10.8 mg/dL (8.5-10.1); CREATININE 2.1 mg/dL (0.6-1.3); SODIUM SERUM 143 mmol/L (136-145); UREA NITROGEN, BLOOD 41 mg/dL (7-18)
[2025-05-07 11:32] LABS: NT-PRO BNP 1225 pg/mL (0-125)
[2025-05-07] MEDS ORDERED: VITA1TAB56 PO (11:39)
[2025-05-07 12:49] LABS: APPEARANCE,URINE CLEAR (CLEAR); BLOOD, URINE Negative Ery/uL (NEGATIVE); LEUKOCYTE ESTERASE ,URINE Trace (NEGATIVE); UGLUCOSE 100 MG/DL mg/dL (NEGATIVE)
[2025-05-07 12:51] LABS: NITRITE, URINE NEGATIVE (NEGATIVE)
[2025-05-07 14:07] LABS: ADD URINE CULTURE NO; SQUAMOUS EPITHELIAL CELL,UR 0-2 /HPF (None Seen)
[2025-05-07] MEDS ORDERED: IPRATROPIUM NEB FS 0.5 MG/2.5 ML AMPUL.NEB NEB PRN (15:00)
[2025-05-07] MEDS ORDERED: HYDROCODONE/APAP 5/325MG TABLET PO PRN (15:00)
[2025-05-07] MEDS ORDERED: ONDANSETRON HCL/PF 4 MG/2 ML VIAL IVP PRN (15:00)
[2025-05-07] MEDS ORDERED: ALBUTEROL FS 2.5 MG/0.5 ML VIAL.NEB NEB PRN (15:00)
[2025-05-07] MEDS: ENOXAPARIN SODIUM 30 MG/0.3 ML DISP.SYRIN SQ SCH (15:24)
[2025-05-07 16:00] VITALS: BP 106/63; TEMP 97.7; O2SAT 98
[2025-05-07 20:00] VITALS: BP 100/58; TEMP 98.4; O2SAT 98
[2025-05-08] VITALS: BP 116/76; TEMP 98.2; O2SAT 96
[2025-05-08 04:00] VITALS: BP 115/69; TEMP 98.8; O2SAT 94
[2025-05-08 06:57] LABS: PLATELET COUNT (AUTO) 197 K/uL (150-450); RED BLOOD CELL COUNT(AUTO) 3.80 MIL/uL (4.0-5.2); RED CELL DISTRIBUTION WIDTH 19.2 % (11.5-15.0); WHITE BLOOD COUNT (AUTO) 8.3 K/uL (4.3-11.0)
[2025-05-08 07:21] LABS: CALCIUM, SERUM 9.4 mg/dL (8.5-10.1); CREATININE 1.9 mg/dL (0.6-1.3); PHOSPHORUS 5.0 mg/dL (2.5-4.9); SODIUM SERUM 133.0 mmol/L (136-145); UREA NITROGEN, BLOOD 46.0 mg/dL (7-18)
[2025-05-08 08:00] VITALS: BP 130/84; TEMP 98.1; O2SAT 97
[2025-05-08] MEDS ORDERED: Z GUARD REMEDY 4 OZ OINT TP PRN (09:00)
[2025-05-08] MEDS: Z GUARD REMEDY 4 OZ OINT TP SCH (09:54)
[2025-05-08 12:00] VITALS: BP 130/84; TEMP 98.1; O2SAT 97
[2025-05-08 16:22] VITALS: BP 105/78; TEMP 98.4; O2SAT 95
[2025-05-08 20:00] VITALS: BP 115/67; TEMP 97.9; O2SAT 97
[2025-05-09 04:00] VITALS: BP 151/85; TEMP 98.4; O2SAT 96
[2025-05-09] MEDS: POLYETHYLENE GLYCOL 3350 17 GM POWD.PACK PO ONE (07:56)
[2025-05-09 08:00] VITALS: BP 147/83; TEMP 98.1; O2SAT 96
[2025-05-09 08:13] LABS: PLATELET COUNT (AUTO) 218 K/uL (150-450); RED BLOOD CELL COUNT(AUTO) 3.81 MIL/uL (4.0-5.2); RED CELL DISTRIBUTION WIDTH 19.1 % (11.5-15.0); WHITE BLOOD COUNT (AUTO) 12.0 K/uL (4.3-11.0)
[2025-05-09 08:25] LABS: ASPARTATE AMINOTRANSFERASE 26.0 U/L (15-37); CALCIUM, SERUM 9.0 mg/dL (8.5-10.1); CREATININE 1.8 mg/dL (0.6-1.3); PHOSPHORUS 3.7 mg/dL (2.5-4.9); SODIUM SERUM 134.0 mmol/L (136-145); TOTAL PROTEIN, SERUM 5.9 g/dL (6.4-8.2); UREA NITROGEN, BLOOD 49.0 mg/dL (7-18)
[2025-05-09] MEDS: MAGNESIUM HYDROXIDE 30 ML UDC PO PRN (08:33)
[2025-05-09] MEDS: NA PHOS,M-B/NA PHOS,DI-BA 1 EA ENEMA RC ONE (08:33)
[2025-05-09] MEDS ORDERED: MAGNESIUM CITRATE 296 ML BOTTLE PO ONE (09:30)
[2025-05-09] MEDS: POTASSIUM CHLORIDE 10 MEQ TABLET.SA PO ONE (10:09)
[2025-05-09] MEDS ORDERED: NA PHOS,M-B/NA PHOS,DI-BA 1 EA ENEMA RC PRN (11:30)
[2025-05-09 16:00] VITALS: BP 129/72; TEMP 98.6; O2SAT 95
[2025-05-10] VITALS: BP 128/78; TEMP 98.6; O2SAT 96
[2025-05-10 07:39] LABS: PLATELET COUNT (AUTO) 237 K/uL (150-450); RED BLOOD CELL COUNT(AUTO) 3.92 MIL/uL (4.0-5.2); RED CELL DISTRIBUTION WIDTH 18.5 % (11.5-15.0); WHITE BLOOD COUNT (AUTO) 11.7 K/uL (4.3-11.0)
[2025-05-10 08:00] VITALS: BP_SYST 136; BP_SYST 152; BP_DIAS 74; BP_DIAS 90; TEMP 97.9; O2SAT 94; O2SAT 96
[2025-05-10 08:18] LABS: CALCIUM, SERUM 8.6 mg/dL (8.5-10.1); CREATININE 1.5 mg/dL (0.6-1.3); SODIUM SERUM 135.0 mmol/L (136-145); UREA NITROGEN, BLOOD 39.0 mg/dL (7-18)
[2025-05-10] MEDS ORDERED: DOCUSATE SODIUM 100 MG CAPSULE PO PRN (10:00)
[2025-05-10] MEDS ORDERED: ALBUTEROL FS 2.5 MG/0.5 ML VIAL.NEB NEB PRN (10:00)
[2025-05-10] MEDS ORDERED: METHOCARBAMOL (500MG) 500 MG TABLET PO PRN (10:00)
[2025-05-10] MEDS ORDERED: BISACODYL (5 MG) 5 MG TABLET.DR PO PRN (10:00)
[2025-05-10 12:00] VITALS: BP 140/84; TEMP 99.1; O2SAT 96
[2025-05-10] MEDS: ALPRAZOLAM 1 MG TABLET PO PRN (14:49)
[2025-05-10 16:00] VITALS: BP 127/79; TEMP 98.4; O2SAT 98
[2025-05-10] MEDS: CARVEDILOL 6.25 MG TABLET PO SCH (16:51)
[2025-05-10] MEDS: FLUTICASONE PROPIONATE 16 GM BOTTLE NS SCH (16:52)
[2025-05-10 20:00] VITALS: BP 112/74; TEMP 98.2; O2SAT 96
[2025-05-10] MEDS: ZOLPIDEM TARTRATE 5 MG TABLET PO PRN (21:10)
[2025-05-11 04:00] VITALS: BP 142/90; TEMP 98.8; O2SAT 96
[2025-05-11 07:59] LABS: PLATELET COUNT (AUTO) 262 K/uL (150-450); RED BLOOD CELL COUNT(AUTO) 4.05 MIL/uL (4.0-5.2); RED CELL DISTRIBUTION WIDTH 18.7 % (11.5-15.0); WHITE BLOOD COUNT (AUTO) 9.8 K/uL (4.3-11.0)
[2025-05-11 08:00] VITALS: BP 127/83; TEMP 98.6; O2SAT 97
[2025-05-11 08:14] LABS: CALCIUM, SERUM 8.5 mg/dL (8.5-10.1); CREATININE 1.2 mg/dL (0.6-1.3); SODIUM SERUM 134.0 mmol/L (136-145); UREA NITROGEN, BLOOD 37.0 mg/dL (7-18)
[2025-05-11] MEDS: EMPAGLIFLOZIN 10 MG TABLET PO SCH (08:25)
[2025-05-11] MEDS: FLUOXETINE HCL 20 MG CAPSULE PO SCH (08:25)
[2025-05-11] MEDS: CHOLECALCIFEROL 1,000 UNIT TABLET (VIT D3) PO SCH (08:26)
[2025-05-11] MEDS: FAMOTIDINE (20 MG) 20 MG TABLET PO SCH (08:26)
[2025-05-11] MEDS: CALCIUM CARBONATE 500 MG TAB.CHEW PO SCH (08:26)
[2025-05-11] MEDS: AMIODARONE HCL 200 MG TABLET PO SCH (08:28)
[2025-05-11] MEDS: RIVAROXABAN 10 MG TABLET PO SCH (08:29)
[2025-05-11] MEDS: Z GUARD REMEDY 4 OZ OINT TP PRN (08:31)
[2025-05-11] MEDS: POTASSIUM CHLORIDE 20 MEQ TAB.PRT.SR PO SCH (09:52)
[2025-05-11] MEDS ORDERED: PRED50TA PO (10:09)
[2025-05-11 11:15] LABS: LYMPHOCYTES % (MANUAL) 6 % (16-48); MONOCYTES % (MANUAL) 3 % (0-11.0); NEUTROPHILS % (MANUAL) 91 (42-76); PLATELET ESTIMATE ADEQUATE
[2025-05-11 16:00] VITALS: BP 122/75; TEMP 98.6; O2SAT 98
[2025-05-11 16:21] VITALS: BP 122/75
[2025-05-11 18:08] VITALS: TEMP 98.6
[2025-05-11] MEDS: ACETAMINOPHEN 325 MG TABLET PO PRN (18:08)
[2025-05-12] MEDS ORDERED: FERROUS SULFATE (325 MG) 325 MG/TAB TABLET PO SCH (09:00)
== END 2025-05-11 18:27 | DRG 190 ==
LOC: ER 10:32 → MEDSG1 11:54
PROVIDERS: ATTEND Internal Medicine
DX: J44.1 Chronic obstructive pulmonary disease with (acute) exacerbation (principal); J96.21 Acute and chronic respiratory failure with hypoxia; I13.0 Hypertensive heart and chronic kidney disease with heart failure and stage 1 through stage 4 chronic kidney disease, or unspecified chronic kidney disease; N17.9 Acute kidney failure, unspecified; I50.32 Chronic diastolic (congestive) heart failure; I48.20 Chronic atrial fibrillation, unspecified; C79.51 Secondary malignant neoplasm of bone; E87.1 Hypo-osmolality and hyponatremia; N18.9 Chronic kidney disease, unspecified; Z85.528 Personal history of other malignant neoplasm of kidney; Z85.3 Personal history of malignant neoplasm of breast; Z90.10 Acquired absence of unspecified breast and nipple; Z90.5 Acquired absence of kidney; Z90.81 Acquired absence of spleen; Z90.49 Acquired absence of other specified parts of digestive tract; Z96.642 Presence of left artificial hip joint; Z79.899 Other long term (current) drug therapy; Z87.891 Personal history of nicotine dependence; Z91.81 History of falling; M19.90 Unspecified osteoarthritis, unspecified site; Z98.890 Other specified postprocedural states; Z79.51 Long term (current) use of inhaled steroids; Z79.84 Long term (current) use of oral hypoglycemic drugs; Z79.01 Long term (current) use of anticoagulants; I70.0 Atherosclerosis of aorta; I71.21 Aneurysm of the ascending aorta, without rupture; F41.9 Anxiety disorder, unspecified; E87.6 Hypokalemia; F32.A Depression, unspecified; E78.5 Hyperlipidemia, unspecified; J43.2 Centrilobular emphysema; R79.89 Other specified abnormal findings of blood chemistry; R91.1 Solitary pulmonary nodule; L89.326 Pressure-induced deep tissue damage of left buttock; L89.316 Pressure-induced deep tissue damage of right buttock; S30.0XXA Contusion of lower back and pelvis, initial encounter; X58.XXXA Exposure to other specified factors, initial encounter; Y92.9 Unspecified place or not applicable
CPT/HCPCS: 36415; 36600; 71045-TC; 71250-TC; 80048-TC; 80053-TC; 81001; 82803-TC; 83735-TC; 83880; 84100-TC; 84439-TC; 84443-TC; 84484-TC; 85025-TC; 85027-TC; 85378-TC; 97110-TC; 97116-TC; 97530-TC; G0378; J1650; J2919

== ENCOUNTER 2025-05-31 14:10 | Inpatient (IN) | payer MEDICARE ==
[~2025-05-31] VITALS: Ht 162.6 cm; Wt 65.3 kg
[~2025-05-31 14:10] MED LIST changes: -ATOV750O4 PO; -FURO-145 PO; -PRED10TA PO; +PRED50TA PO; +VITA1TAB56 PO; -[UNRECOGNIZED DRUG - OTHER] PO
[2025-05-31] MEDS: IV NS 0.9% 500 ML BAG IV ONE (14:58)
[2025-05-31 15:06] LABS: PLATELET COUNT (AUTO) 407 K/uL (150-450); RED BLOOD CELL COUNT(AUTO) 3.32 MIL/uL (4.0-5.2); RED CELL DISTRIBUTION WIDTH 19.5 % (11.5-15.0); WHITE BLOOD COUNT (AUTO) 13.6 K/uL (4.3-11.0)
[2025-05-31 15:10] LABS: CALCIUM, SERUM 7.9 mg/dL (8.5-10.1); CREATININE 1.1 mg/dL (0.6-1.3); SODIUM SERUM 144.0 mmol/L (136-145); UREA NITROGEN, BLOOD 22.0 mg/dL (7-18)
[2025-05-31 15:17] LABS: ASPARTATE AMINOTRANSFERASE 29.0 U/L (15-37); TOTAL PROTEIN, SERUM 5.4 g/dL (6.4-8.2)
[2025-05-31] MEDS: CEFEPIME 1 GM in IV D5W 50 ML IV ONE (15:17)
[2025-05-31 15:18] LABS: LACTIC ACID 1.2 mmol/L (0.4-2.0)
[2025-05-31] MEDS ORDERED: MAG HYDROX/AL HYDROX/SIMETH 30 ML UDC PO PRN (16:00)
[2025-05-31] MEDS ORDERED: Z GUARD REMEDY 4 OZ OINT TP PRN (16:00)
[2025-05-31] MEDS ORDERED: ONDANSETRON HCL/PF 4 MG/2 ML VIAL IVP PRN (16:00)
[2025-05-31] MEDS ORDERED: ZOLPIDEM TARTRATE 5 MG TABLET PO PRN (16:00)
[2025-05-31 16:17] LABS: APPEARANCE,URINE CLEAR (CLEAR); BLOOD, URINE NEGATIVE Ery/uL (NEGATIVE); LEUKOCYTE ESTERASE ,URINE TRACE (NEGATIVE); NITRITE, URINE NEGATIVE (NEGATIVE); UGLUCOSE 2+ mg/dL (NEGATIVE)
[2025-05-31 17:14] LABS: ADD URINE CULTURE YES
[2025-05-31 17:29] LABS: BAND % (MANUAL) 1 % (0.0-5.0); EOSINOPHILS % (MANUAL) 2 % (0-4); LYMPHOCYTES % (MANUAL) 6 % (16-48); MONOCYTES % (MANUAL) 2 % (0-11.0); NEUTROPHILS % (MANUAL) 89 (42-76); PLATELET ESTIMATE ADEQUATE
[2025-05-31] MEDS: IV NS 0.9% 1,000 ML IV PRN (18:29)
[2025-05-31] MEDS: CEFTRIAXONE 1 G in IV D5W 50 ML IV SCH (18:29)
[2025-05-31] MEDS: LACTULOSE 10 G/15 ML UDC (PYXIS) PO SCH (18:39)
[2025-05-31 20:00] VITALS: BP 110/72; TEMP 97.5; O2SAT 97
[2025-06-01] VITALS (8 sets, daily range): BP systolic 122–153; BP diastolic 80–94; TEMP 97.3–98.8; O2SAT 94–99
[2025-06-01] MEDS: PANTOPRAZOLE 40 MG TABLET.DR PO SCH (08:24)
[2025-06-01 12:27] LABS: CALCIUM, SERUM 7.9 mg/dL (8.5-10.1); CREATININE 1.1 mg/dL (0.6-1.3); PHOSPHORUS 1.6 mg/dL (2.5-4.9); SODIUM SERUM 144.0 mmol/L (136-145); UREA NITROGEN, BLOOD 14.0 mg/dL (7-18)
[2025-06-01 12:32] LABS: PLATELET COUNT (AUTO) 396 K/uL (150-450); RED BLOOD CELL COUNT(AUTO) 3.53 MIL/uL (4.0-5.2); RED CELL DISTRIBUTION WIDTH 19.6 % (11.5-15.0); WHITE BLOOD COUNT (AUTO) 11.3 K/uL (4.3-11.0)
[2025-06-01] MEDS: ACETYLCYSTEINE 10% SOLN 400 MG/4 ML VIAL NEB SCH (13:00)
[2025-06-01] MEDS: PEG 3350/NA SULF,BICARB,CL/KCL 4,000 ML BOTTLE PO ONE (13:35)
[2025-06-01] MEDS: CLOTRIMAZOLE 1% 15 GM TUBE TP SCH (16:19)
[2025-06-01] MEDS: K PHOS NEUTRAL 250 MG TABLET PO ONE (16:19)
[2025-06-01] MEDS: ACETAMINOPHEN 325 MG TABLET PO PRN (20:14)
[2025-06-01] MEDS: MORPHINE SULFATE INJ 2 MG/ML DISP.SYRIN IV PRN (21:08)
[2025-06-01] MEDS: IPRATROPIUM NEB FS 0.5 MG/2.5 ML AMPUL.NEB NEB PRN (23:36)
[2025-06-01] MEDS: ALBUTEROL FS 2.5 MG/0.5 ML VIAL.NEB NEB PRN (23:36)
[2025-06-02] VITALS (11 sets, daily range): BP systolic 110–158; BP diastolic 74–95; TEMP 97.9–98.8; O2SAT 92–100
[2025-06-02 07:23] LABS: PLATELET COUNT (AUTO) 457 K/uL (150-450); RED BLOOD CELL COUNT(AUTO) 3.71 MIL/uL (4.0-5.2); RED CELL DISTRIBUTION WIDTH 19.2 % (11.5-15.0); WHITE BLOOD COUNT (AUTO) 10.2 K/uL (4.3-11.0)
[2025-06-02 07:56] LABS: ASPARTATE AMINOTRANSFERASE 27.0 U/L (15-37); CALCIUM, SERUM 7.2 mg/dL (8.5-10.1); CREATININE 0.8 mg/dL (0.6-1.3); PHOSPHORUS 3.3 mg/dL (2.5-4.9); TOTAL PROTEIN, SERUM 5.5 g/dL (6.4-8.2); UREA NITROGEN, BLOOD 13.0 mg/dL (7-18)
[2025-06-02 08:20] LABS: SODIUM SERUM 140.0 mmol/L (136-145)
[2025-06-02] MEDS: HYDROCODONE/APAP 10/325MG TABLET PO PRN (09:07)
[2025-06-02] MEDS: AMIODARONE HCL 200 MG TABLET PO SCH (09:57)
[2025-06-02] MEDS: CARVEDILOL 6.25 MG TABLET PO SCH (09:57)
[2025-06-02 10:32] LABS: LYMPHOCYTES % (MANUAL) 2 % (16-48); MONOCYTES % (MANUAL) 1 % (0-11.0); NEUTROPHILS % (MANUAL) 97 (42-76)
[2025-06-02 10:33] LABS: PLATELET ESTIMATE INCREASED
[2025-06-02] MEDS: POTASSIUM CHLORIDE 20 MEQ TAB.PRT.SR PO SCH (11:06)
[2025-06-02] MEDS: MAGNESIUM HYDROXIDE 30 ML UDC PO PRN (20:31)
[2025-06-03] VITALS (12 sets, daily range): BP systolic 121–124; BP diastolic 68–82; TEMP 97.5–98.4; O2SAT 96–100
[2025-06-03 07:55] LABS: CALCIUM, SERUM 6.7 mg/dL (8.5-10.1); CREATININE 0.9 mg/dL (0.6-1.3); SODIUM SERUM 138.0 mmol/L (136-145); UREA NITROGEN, BLOOD 14.0 mg/dL (7-18)
[2025-06-03 08:11] LABS: PHOSPHORUS 1.9 mg/dL (2.5-4.9)
[2025-06-03] MEDS: K PHOS NEUTRAL 250 MG TABLET PO ONE (16:38)
[2025-06-04] VITALS (9 sets, daily range): BP systolic 119–139; BP diastolic 72–89; TEMP 97.5–98.4; O2SAT 95–100
[2025-06-04] MEDS: HYDROCODONE/APAP 5/325MG TABLET PO PRN (05:39)
[2025-06-04 09:09] LABS: CALCIUM, SERUM 6.3 mg/dL (8.5-10.1); CREATININE 0.8 mg/dL (0.6-1.3); SODIUM SERUM 136.0 mmol/L (136-145); UREA NITROGEN, BLOOD 14.0 mg/dL (7-18)
[2025-06-04] MEDS ORDERED: MAGNESIUM HYDROXIDE 30 ML UDC PO PRN (12:00)
== END 2025-06-04 18:42 | DRG 392 ==
LOC: ER 14:30 → MEDSG1 16:17 → TELE1 20:56
DX: K59.00 Constipation, unspecified (principal); I48.20 Chronic atrial fibrillation, unspecified; I50.32 Chronic diastolic (congestive) heart failure; C79.51 Secondary malignant neoplasm of bone; C34.92 Malignant neoplasm of unspecified part of left bronchus or lung; C34.91 Malignant neoplasm of unspecified part of right bronchus or lung; I95.9 Hypotension, unspecified; I11.0 Hypertensive heart disease with heart failure; E87.6 Hypokalemia; E86.0 Dehydration; E78.5 Hyperlipidemia, unspecified; Z79.84 Long term (current) use of oral hypoglycemic drugs; Z87.891 Personal history of nicotine dependence; Z90.81 Acquired absence of spleen; Z90.5 Acquired absence of kidney; Z85.3 Personal history of malignant neoplasm of breast; Z96.642 Presence of left artificial hip joint; Z85.528 Personal history of other malignant neoplasm of kidney; Z79.01 Long term (current) use of anticoagulants; M19.90 Unspecified osteoarthritis, unspecified site; Z66 Do not resuscitate; R79.89 Other specified abnormal findings of blood chemistry; F32.A Depression, unspecified; F41.9 Anxiety disorder, unspecified; R91.1 Solitary pulmonary nodule; J44.9 Chronic obstructive pulmonary disease, unspecified; Z79.899 Other long term (current) drug therapy
CPT/HCPCS: 36415; 71045-TC; 80048-TC; 80053-TC; 80076-TC; 81001; 83605-TC; 83690-TC; 83735-TC; 84100-TC; 85025-TC; 85027-TC; 87040-TC; 87086-TC; 94760-TC; 94799-TC; A4223; G0378; J0692; J0696; J2270; J2919; J7030; J7040; J7060

== ENCOUNTER 2025-07-30 15:15 | Inpatient (IN) | payer MEDICARE ==
[~2025-07-30] VITALS: Ht 162.6 cm; Wt 65.3 kg
[~2025-07-30 15:15] MED LIST changes: -PRED50TA PO
[2025-07-30 16:03] LABS: APPEARANCE,URINE CLEAR (CLEAR); BLOOD, URINE Small Ery/uL (NEGATIVE); LEUKOCYTE ESTERASE ,URINE Trace (NEGATIVE); UGLUCOSE 500 MG/DL mg/dL (NEGATIVE)
[2025-07-30] MEDS: IV NS 0.9% 500 ML BAG IV ONE (16:07)
[2025-07-30 16:08] LABS: NITRITE, URINE NEGATIVE (NEGATIVE)
[2025-07-30 16:09] LABS: ADD URINE CULTURE YES; SQUAMOUS EPITHELIAL CELL,UR Few /HPF (None Seen)
[2025-07-30 16:21] LABS: PLATELET COUNT (AUTO) 280 K/uL (150-450); RED BLOOD CELL COUNT(AUTO) 3.54 MIL/uL (4.0-5.2); RED CELL DISTRIBUTION WIDTH 15.4 % (11.5-15.0); WHITE BLOOD COUNT (AUTO) 17.9 K/uL (4.3-11.0)
[2025-07-30] MEDS ORDERED: PIPERACI/TAZO 3.375GM/D5W 50ML PB IV ONE (16:24)
[2025-07-30 16:30] LABS: CALCIUM, SERUM 8.1 mg/dL (8.5-10.1); CREATININE 0.9 mg/dL (0.6-1.3); SODIUM SERUM 139 mmol/L (136-145); UREA NITROGEN, BLOOD 26 mg/dL (7-18)
[2025-07-30 16:35] LABS: SERUM AMMONIA 2 umol/L (11-32)
[2025-07-30] MEDS: PIPERACILLIN /TAZOBACTAM 3.375 G in IV D5W 50 ML IV ONE (16:35)
[2025-07-30 16:37] LABS: ASPARTATE AMINOTRANSFERASE 25 U/L (15-37); TOTAL PROTEIN, SERUM 5.2 g/dL (6.4-8.2)
[2025-07-30 16:39] LABS: LACTIC ACID 1.7 mmol/L (0.4-2.0)
[2025-07-30] MEDS ORDERED: HYDR-3980 PO (17:10)
[2025-07-30] MEDS ORDERED: MAG30ORA PO (17:10)
[2025-07-30] MEDS ORDERED: APIX5TAB PO (17:10)
[2025-07-30] MEDS ORDERED: PRED20TA PO (17:10)
[2025-07-30] MEDS ORDERED: ACET325T53 PO (17:10)
[2025-07-30] MEDS ORDERED: NUT.237L71 PO (17:10)
[2025-07-30] MEDS ORDERED: OMEP20TA5 PO (17:10)
[2025-07-30] MEDS ORDERED: ASCO500T10 PO (17:10)
[2025-07-30] MEDS ORDERED: MULT-213 PO (17:10)
[2025-07-30] MEDS ORDERED: SENN-261 PO (17:10)
[2025-07-30] MEDS ORDERED: AMIN30LI2 PO (17:10)
[2025-07-30] MEDS ORDERED: GABA-532 PO (17:10)
[2025-07-30] MEDS ORDERED: IPRA3AMP23 IH (17:10)
[2025-07-30] MEDS ORDERED: HYDR-4303 PO (17:10)
[2025-07-30] MEDS ORDERED: DAPA10TA PO (17:10)
[2025-07-30] MEDS ORDERED: BISA10SU11 RC (17:10)
[2025-07-30 20:00] VITALS: BP 122/70; TEMP 97.7; O2SAT 99
[2025-07-30] MEDS ORDERED: HYDROCODONE/APAP 5/325MG TABLET PO PRN (20:00)
[2025-07-30] MEDS ORDERED: Z GUARD REMEDY 4 OZ OINT TP PRN (20:00)
[2025-07-30] MEDS ORDERED: MAG HYDROX/AL HYDROX/SIMETH 30 ML UDC PO PRN (20:00)
[2025-07-30] MEDS ORDERED: TEMAZEPAM 15 MG CAPSULE PO PRN (20:00)
[2025-07-31] VITALS: BP 102/48; TEMP 97.5; O2SAT 99
[2025-07-31] MEDS ORDERED: METHOCARBAMOL (500MG) 500 MG TABLET PO PRN
[2025-07-31] MEDS ORDERED: NALOXONE HCL 4 MG SPRAY NS PRN
[2025-07-31] MEDS: IV NS 0.9% 1,000 ML IV PRN (00:13)
[2025-07-31] MEDS ORDERED: ALBUTEROL FS 2.5 MG/3 ML VIAL.NEB NEB PRN (00:30)
[2025-07-31 04:00] VITALS: BP 108/47; TEMP 97.8; O2SAT 98
[2025-07-31 05:58] LABS: PLATELET COUNT (AUTO) 272 K/uL (150-450); RED BLOOD CELL COUNT(AUTO) 3.67 MIL/uL (4.0-5.2); RED CELL DISTRIBUTION WIDTH 15.3 % (11.5-15.0); WHITE BLOOD COUNT (AUTO) 14.8 K/uL (4.3-11.0)
[2025-07-31 06:07] LABS: CALCIUM, SERUM 8.4 mg/dL (8.5-10.1); CREATININE 1.1 mg/dL (0.6-1.3); PHOSPHORUS 2.5 mg/dL (2.5-4.9); SODIUM SERUM 148.0 mmol/L (136-145); UREA NITROGEN, BLOOD 21.0 mg/dL (7-18)
[2025-07-31] MEDS ORDERED: NALOXONE PREFILLED SYRINGE 2 MG/2 ML SYRINGE IV PRN (07:30)
[2025-07-31 08:00] VITALS: BP 114/76; TEMP 98.6; O2SAT 95
[2025-07-31] MEDS: PANTOPRAZOLE 40 MG TABLET.DR PO SCH (08:01)
[2025-07-31] MEDS: CEFTRIAXONE 1 G in IV D5W 50 ML IV SCH (08:44)
[2025-07-31] MEDS: CARVEDILOL 6.25 MG TABLET PO SCH (08:44)
[2025-07-31] MEDS: CALCIUM CARBONATE (1250) 500 MG TABLET PO SCH (08:45)
[2025-07-31] MEDS: VIT B CMPLX 3/FA/VIT C/BIOTIN 1 TAB TABLET PO SCH (08:45)
[2025-07-31] MEDS: AMIODARONE HCL 200 MG TABLET PO SCH (08:45)
[2025-07-31] MEDS: APIXABAN 5 MG TABLET PO SCH (08:46)
[2025-07-31] MEDS: GABAPENTIN 100 MG CAPSULE PO SCH (08:47)
[2025-07-31] MEDS: FLUTICASONE PROPIONATE 16 GM BOTTLE NS SCH (08:47)
[2025-07-31] MEDS: FLUOXETINE HCL 20 MG CAPSULE PO SCH (08:47)
[2025-07-31] MEDS: DOCUSATE SODIUM 100 MG CAPSULE PO SCH (08:47)
[2025-07-31] MEDS: CHOLECALCIFEROL 1,000 UNIT TABLET (VIT D3) PO SCH (08:47)
[2025-07-31] MEDS: ASCORBIC ACID 500 MG TABLET PO SCH (08:47)
[2025-07-31] MEDS: DAPAGLIFLOZIN PROPANEDIOL 10 MG TABLET PO SCH (08:48)
[2025-07-31 10:29] LABS: BAND % (MANUAL) 1 % (0.0-5.0); EOSINOPHILS % (MANUAL) 1 % (0-4); LYMPHOCYTES % (MANUAL) 10 % (16-48); MONOCYTES % (MANUAL) 6 % (0-11.0); NEUTROPHILS % (MANUAL) 82 (42-76); PLATELET ESTIMATE ADEQUATE
[2025-07-31] MEDS: POTASSIUM CHLORIDE 20 MEQ TAB.PRT.SR PO SCH (10:45)
[2025-07-31] MEDS: IV 1/2NS 1000 ML 1,000 ML IV PRN (10:52)
[2025-07-31] MEDS: MAGNESIUM HYDROXIDE 30 ML UDC PO PRN (11:13)
[2025-07-31 12:00] VITALS: BP 130/74; TEMP 97.8; O2SAT 97
[2025-07-31] MEDS: ONDANSETRON HCL/PF 4 MG/2 ML VIAL IVP PRN (12:35)
[2025-07-31] MEDS: NA PHOS,M-B/NA PHOS,DI-BA 1 EA ENEMA RC PRN (15:44)
[2025-07-31 16:00] VITALS: BP_SYST 105; BP_SYST 140; BP_DIAS 117; BP_DIAS 43; TEMP 98.2; TEMP 98.5; O2SAT 93; O2SAT 99
[2025-07-31] MEDS: SENNOSIDES 8.6 MG TABLET PO SCH (21:38)
[2025-07-31] MEDS: ATORVASTATIN 40 MG TABLET PO SCH (21:38)
[2025-08-01] VITALS: BP 94/54; TEMP 97.5; O2SAT 95
[2025-08-01 06:26] LABS: PLATELET COUNT (AUTO) 301 K/uL (150-450); RED BLOOD CELL COUNT(AUTO) 3.77 MIL/uL (4.0-5.2); RED CELL DISTRIBUTION WIDTH 15.0 % (11.5-15.0); WHITE BLOOD COUNT (AUTO) 13.6 K/uL (4.3-11.0)
[2025-08-01 06:39] LABS: CALCIUM, SERUM 8.6 mg/dL (8.5-10.1); CREATININE 0.9 mg/dL (0.6-1.3); SODIUM SERUM 146.0 mmol/L (136-145); UREA NITROGEN, BLOOD 17.0 mg/dL (7-18)
[2025-08-01 08:00] VITALS: BP 149/95; TEMP 97.9; O2SAT 95
[2025-08-01] MEDS: FERROUS SULFATE (325 MG) 325 MG/TAB TABLET PO SCH (08:43)
[2025-08-01] MEDS: ACETAMINOPHEN 325 MG TABLET PO PRN (10:12)
[2025-08-01 16:00] VITALS: BP 105/66; TEMP 98.2; O2SAT 96
[2025-08-01] MEDS: HYDROCODONE/APAP 10/325MG TABLET PO PRN (20:33)
[2025-08-02 06:00] VITALS: BP 145/87; TEMP 97.9; O2SAT 96
[2025-08-02 06:25] LABS: PLATELET COUNT (AUTO) 295 K/uL (150-450); RED BLOOD CELL COUNT(AUTO) 4.03 MIL/uL (4.0-5.2); RED CELL DISTRIBUTION WIDTH 15.5 % (11.5-15.0); WHITE BLOOD COUNT (AUTO) 12.5 K/uL (4.3-11.0)
[2025-08-02 06:36] LABS: CALCIUM, SERUM 8.2 mg/dL (8.5-10.1); CREATININE 0.9 mg/dL (0.6-1.3); SODIUM SERUM 141.0 mmol/L (136-145); UREA NITROGEN, BLOOD 13.0 mg/dL (7-18)
[2025-08-02] MEDS: POTASSIUM CHLORIDE 20 MEQ TAB.PRT.SR PO ONE (09:48)
[2025-08-02] MEDS: POLYVINYL ALCOHOL 15 ML BOTTLE EACHEYE PRN (09:50)
[2025-08-02 10:00] VITALS: BP 104/64; TEMP 97.9; O2SAT 96
[2025-08-02 13:55] VITALS: BP 104/63; TEMP 97.9; O2SAT 96
[2025-08-02 14:00] VITALS: BP 104/63; TEMP 97.9; O2SAT 96
[2025-08-02] MEDS: MEROPENEM 500 MG in IV NS 0.9% 50 ML IV SCH (14:05)
[2025-08-02 16:00] VITALS: BP 134/88; TEMP 97.7; O2SAT 97
[2025-08-02] MEDS ORDERED: MEROPENEM 500 MG in IV NS 0.9% 50 ML IV SCH (17:00)
[2025-08-02 22:00] VITALS: BP 123/83; TEMP 97.9; O2SAT 97
[2025-08-03] MEDS: ONDANSETRON HCL/PF 4 MG/2 ML VIAL IV PRN (05:39)
[2025-08-03 06:00] VITALS: BP 110/75; TEMP 98.1; O2SAT 97
[2025-08-03 06:40] LABS: PLATELET COUNT (AUTO) 356 K/uL (150-450); RED BLOOD CELL COUNT(AUTO) 4.38 MIL/uL (4.0-5.2); RED CELL DISTRIBUTION WIDTH 15.2 % (11.5-15.0); WHITE BLOOD COUNT (AUTO) 13.4 K/uL (4.3-11.0)
[2025-08-03 06:44] LABS: CALCIUM, SERUM 8.9 mg/dL (8.5-10.1); CREATININE 0.9 mg/dL (0.6-1.3); SODIUM SERUM 139.0 mmol/L (136-145); UREA NITROGEN, BLOOD 12.0 mg/dL (7-18)
[2025-08-03 08:24] VITALS: BP 137/88; TEMP 97.9; O2SAT 95
[2025-08-03] MEDS: POTASSIUM CHLORIDE 20 MEQ TAB.PRT.SR PO ONE (12:35)
[2025-08-03 16:00] VITALS: BP 130/98; TEMP 98.3; O2SAT 95
[2025-08-03 16:49] VITALS: BP 130/98; TEMP 98.3; O2SAT 95
== END 2025-08-03 21:37 | DRG 641 ==
LOC: ER 15:21 → TELE1 17:18 → MEDSG1 07-31 12:09
PROVIDERS: ADMIT Registered Nurse Psychiatric/Mental Health; ATTEND Internal Medicine
DX: E86.0 Dehydration (principal); C78.02 Secondary malignant neoplasm of left lung; C78.01 Secondary malignant neoplasm of right lung; C79.51 Secondary malignant neoplasm of bone; E44.0 Moderate protein-calorie malnutrition; E87.0 Hyperosmolality and hypernatremia; E83.51 Hypocalcemia; N39.0 Urinary tract infection, site not specified; B96.20 Unspecified Escherichia coli [E. coli] as the cause of diseases classified elsewhere; I13.0 Hypertensive heart and chronic kidney disease with heart failure and stage 1 through stage 4 chronic kidney disease, or unspecified chronic kidney disease; F32.A Depression, unspecified; N18.9 Chronic kidney disease, unspecified; J44.9 Chronic obstructive pulmonary disease, unspecified; Z16.12 Extended spectrum beta lactamase (ESBL) resistance; E78.5 Hyperlipidemia, unspecified; E87.6 Hypokalemia; E88.09 Other disorders of plasma-protein metabolism, not elsewhere classified; F41.9 Anxiety disorder, unspecified; I48.91 Unspecified atrial fibrillation; Z66 Do not resuscitate; Z79.01 Long term (current) use of anticoagulants; Z79.84 Long term (current) use of oral hypoglycemic drugs; Z85.3 Personal history of malignant neoplasm of breast; Z85.528 Personal history of other malignant neoplasm of kidney; Z87.891 Personal history of nicotine dependence; Z90.12 Acquired absence of left breast and nipple; Z90.81 Acquired absence of spleen; Z90.5 Acquired absence of kidney; Z99.81 Dependence on supplemental oxygen; I50.9 Heart failure, unspecified; R53.1 Weakness; Z51.5 Encounter for palliative care; Z68.24 Body mass index [BMI] 24.0-24.9, adult; E83.89 Other disorders of mineral metabolism
CPT/HCPCS: 36415; 71045-TC; 80048-TC; 80076-TC; 81001; 82140-TC; 83605-TC; 83690-TC; 83735-TC; 84100-TC; 85025-TC; 85027-TC; 87040-TC; 87086-TC; 87186-TC; 97110-TC; 97116-TC; 97530-TC; A4223; G0378; J0696; J2185; J2312; J2405; J2543; J3490; J7030; J7040; J7050; J7060